=== PATIENT | male | born 1965 | race Caucasian/White ===

== ENCOUNTER 2024-01-15 00:26 | Inpatient (IN) | payer OTHER, SELFPAY ==
[2024-01-14 20:10] VITALS: BP 143/99; BMI 29.8
[2024-01-14 20:16] LABS: Glucose - Point of Care 107 mg/dl (70-99)
[2024-01-14 20:26] LABS: % Basophils 1.2 % (0-2); % Eosinophils 5.6 % (0-6); % Immature Granulocytes 0.2 % (0-0.5); % Lymphocytes 43.7 % (20.5-51.1); % Monocytes 11.7 % (1.7-9.3); % Neutrophils 37.6 % (42.2-75.2); Absolute Basophils 0.1 10^3/uL (0-0.2); Absolute Eosinophils 0.2 10^3/uL (0-0.7); Absolute Lymphocytes 1.9 10^3/uL (1.2-3.4); Absolute Monocytes 0.5 10^3/uL (0.1-0.6); Absolute Neutrophils 1.6 10^3/uL (1.4-6.5); Hematocrit 37.4 % (39.0-52.0); Hemoglobin 13.7 g/dL (13.0-18.0); Mean Corp Hgb Conc. 36.6 g/dL (33.0-37.0); Mean Corpuscular Volume 81.8 fL (80.0-94.0); Mean Platelet Volume 9.5 fL (7.4-10.4); Nucleated Red Blood Cells % 0 % (-); Platelet Count 197 10^3/uL (130-400); Red Blood Cell Count 4.57 10^6/uL (4.70-6.10); Red Cell Dist. Width 12.2 % (11.5-14.5); White Blood Cell Count 4.3 10^3/uL (4.8-10.8)
[2024-01-14] MEDS: ATIVAN 2 MG IV ×2 (20:26→20:32)
--- NOTE | 2024-01-14 20:27 | EDRN ---
Pt urinated himself and while being changed, complained of headache. Pt started with seizure activity, L gaze preference. Dr Sethi to bedside and gave vo 2mg IV ativan which was administered. Pt placed on 4 lpm O2 for pulse ox = 90% room
air.
--- NOTE | 2024-01-14 20:28 | ED.GENMED ---
History of Present Illness
General
Chief Complaint: Seizure
Time Seen by Provider: 01/14/24 20:25
Travel History
Have you had any contact with someone who has COVID-19?: No
Do you have any symptoms of coronavirus? Fever > 100 degrees, chills, cough, shortness of breath, sore throat, loss of taste or smell, muscle aches, or headache?: No
History of Present Illness
History of Present Illness:
HPI: The patient presents due to presumed seizure. He apparently had a seizure earlier in the evening witnessed by his roommate. Before I evaluated the patient, the nurse tells me that he was acting appropriately with normal mental status and did
not appear postictal. Last seizure 08/22/2023 according to roommate.
EXAM:
GENERAL: Examined 8:25 PM, the patient is seizing�left gaze preference
HEENT: Moist oral mucosa, left gaze preference
CARDIOVASCULAR: No murmurs, tachycardic heart rate and rhythm, No chest wall tenderness
PULMONARY: No respiratory distress, breath sounds are clear and equal
ABDOMEN: Soft with no peritoneal signs, no tenderness
NEUROLOGIC: Increased tone to all extremities but no significant generalized tonic-clonic activity
PSYCHIATRIC: The patient is currently nonverbal, seizing
EXTREMITIES: Nontender, no edema, moves all extremities equally
SKIN: No rash, no lesions
ED COURSE:
8:25 PM: Initially evaluated patient
NUMBER AND COMPLEXITY OF PROBLEMS ADDRESSED AT THE ENCOUNTER
� Chronic conditions affecting care: Seizure disorder, history of Korsakoff psychosis, former alcohol abuse
� Acute Exacerbation and/or Progression of Chronic Illness: This is a recurring problem
� Differential Diagnosis includes: Exacerbation of seizure
AMOUNT AND/OR COMPLEXITY OF DATA TO BE REVIEWED AND ANALYZED
� I performed an independent evaluation of and my interpretation is:
EKG:
CT: CT brain shows no acute abnormality
X-rays: Chest x-ray by my read shows no clear sign of acute abnormality
Laboratory Studies: Sodium is 126, other labs relatively unremarkable
Other:
� Review of other/old records: I reviewed records. The patient was admitted here with breakthrough seizure 09-12 through 08/26/2023 CTA imaging at that time was unremarkable. At that time his dose of clobazam was increased 1
twice daily to be 3 times daily and lacosamide was continued.
� Clinical information was obtained by an independent historian: Spoke to roommate, Socorro Tania [phone] - was 'normal' and hour before and then found him on bed, didn't respond, eyes were open, could not get up out of bed,
then started shaking on left side. Left side of face 'froze', then facial twitching. Was concerned he may vomiting.
� Prescriptions/Medications Considered but not given:
� Further testing considered but not performed:
RISK OF COMPLICATIONS AND/OR MORBIDITY OR MORTALITY OF PATIENT MANAGEMENT
� Social determinants of health affecting care: At home with a roommate
� Discussion with other providers: I discussed with Dr. Watt initially as patient did have a prolonged seizure here. She suggested considering transfer to [facility] as he was difficult to manage here in the past and may
require overnight EEG. I did speak to a resident at [facility] who is checking for transfer with their attending. I received call back from [facility] at around 10 PM: They do not feel the patient needs to be transferred to [facility] and they are
not planning for a overnight EEG. They will follow-up with him next week.
� Escalation of care including admission/observation vs risk of discharge considered:However at approximately 8:25 PM, the patient did have another seizure. He had leftward gaze preference and was not responding to stimuli there
was only subtle extremity. On reassessment at 9:30 PM, he appears postictal. On reassessment at 10:30 PM, the patient has much improved mental status. However I am very concerned about the fact that he had 2 events tonight and 1 of which was very
prolonged at about 10 minutes despite 2 rounds of benzos and he was also given Keppra. Will keep in the hospital for further monitoring.
Past History
Past History
ED Past Medical History: HTN, Seizures, Other (Alcohol intoxication with hallucinations, Dizziness, GI bleeding due to Ulcers) and Other; Negative Asthma, Hypercholesterolemia or NIDDM
ED Past Surgical History: None
Social History
Tobacco: Former smoker
Alcohol: Former ([employer] 4 during the week and 6 on the weekends None since March 2023)
Drug: None
Personal:
Living: with family
Employment: Not employed
Family History
Family History: Other (Noncontributory)
Phy Exam
Physical Exam
Physical Exam:
See HPI
Course
Orders/Labs/Results
Orders:
Orders
01/14/24 20:21
Alcohol Urgent
Complete Blood Count/With Diff Urgent
Comprehensive Metabolic Panel Urgent
01/14/24 20:25
Lorazepam [Ativan] 2 mg .ROUTE .STK-MED ONE
01/14/24 20:26
Lorazepam [Ativan] 2 mg IV NOW STA
01/14/24 20:32
Lorazepam [Ativan] 2 mg IV NOW STA
01/14/24 20:33
Lorazepam [Ativan] 2 mg IV NOW STA
01/14/24 20:35
Levetiracetam Injectable [Keppra] 1,500 mg IV NOW STA
01/14/24 20:36
CT Head W/o Iv Contrast Urgent
Comment:
Reason For Exam: recurrent severe sz activity
01/14/24 21:22
Urine Drug Abuse Screen Urgent
01/14/24 21:23
Urinalysis Reflex To Culture Urgent
CR Chest Portable - 1 View Urgent
Comment:
Reason For Exam: seizure
Reason Study Needs to be Portable: Patient Unstable
01/14/24 22:23
Add On- LAB Urgent
Tests Added?: alcohol level
Abnormal Lab Results
01/14/24 01/14/24
20:15 20:21
WBC 4.3 L 10^3/uL
(4.8-10.8)
RBC 4.57 L 10^6/uL
(4.70-6.10)
Hct 37.4 L %
(39.0-52.0)
Neutrophils % 37.6 L %
(42.2-75.2)
Monocytes % 11.7 H %
(1.7-9.3)
Sodium 126 L mmol/L
(135-145)
Chloride 91 L mmol/L
(98-107)
Glucose 103 H mg/dl
(70-99)
POC Glucose 107 H mg/dl
(70-99)
01/14/24 20:21
01/14/24 20:21
Vital Signs
Initial and Last Documented VS:
Initial Vital Signs
Temp Pulse Resp BP Pulse Ox
98.2 F 82 12 143/99 96
01/14/24 20:10 01/14/24 20:10 01/14/24 20:10 01/14/24 20:10 01/14/24 20:10
Last Documented Vital Signs
Temp Pulse Resp BP Pulse Ox
98.2 F 86 17 123/97 94
01/14/24 20:10 01/14/24 22:00 01/14/24 22:00 01/14/24 22:00 01/14/24 22:00
*Critical Care Note
Total Time (30-74mins, 75-104mins- exclusive of procedures): Not Applicable (The patient had 10 minutes of seizure activity and required several boluses of benzos and emergent administration of IV Keppra. I frequently reassessed this patient on
multiple times after his initial seizure activity.)
ED Attending Note
-
Portions of this chart may have been created with voice recognition software.� Occasional wrong word or��sound alike� substitutions may have occurred due to the inherent limitations of voice recognition software.
Discharge Plan
Departure
Patient Disposition: Admit
Date of Disposition: 01/14/24
Time of Disposition: 22:20
Presentation/result/management discussed w/ accepting MD/DO: Hospitalist
Discharge Problem:
Breakthrough seizure
Prescriptions:
No Action
amlodipine 10 MG tablet
10 mg PO DAILY
sertraline 25 mg Tablet
25 mg PO DAILY
B Complex Tablet Extended Release
1 tab PO DAILY
thiamine HCl (vitamin B1) 100 mg Tablet
100 mg PO DAILY
lacosamide 150 mg tablet
300 mg PO BID
clobazam 10 mg tablet
15 mg PO TID
valproic acid 250 mg capsule
500 mg PO BID Qty: 60 0RF
Referrals:
Caprice Mc DO [Family Provider] -
Interventions
Interventions:
*Risk Screen - Suicide Last Done: 01/14/24 20:10
*General Assessment Last Done: 01/14/24 20:10
*Neglect/Abuse Screening Last Done: 01/14/24 20:10
*ED COVID-19 Vaccine History Last Done: 01/14/24 20:10
ED- Cardiac Assessment Last Done: 01/14/24 20:38
ED- Neurological Assessment Last Done: 01/14/24 20:38
ED- Pulmonary Assessment Last Done: 01/14/24 20:58
--- NOTE | 2024-01-14 20:32 | EDRN ---
Seizure activity significantly increased, gaze to left. Pt placed on NRB mask in addition to nasal cannula.
--- NOTE | 2024-01-14 20:34 | EDRN ---
Seizure activity stopped - pt laying with eyes closed. HR 110.
[2024-01-14] MEDS: KEPPRA 1500 MG IV (20:38)
--- NOTE | 2024-01-14 20:41 | EDRN ---
Pt now talking with staff.
[2024-01-14 20:43] VITALS: BP 144/85
[2024-01-14 20:44] LABS: ALT (SGPT) 14 U/L (0-50); AST (SGOT) 26 U/L (17-59); Albumin 4.6 g/dl (3.5-5.0); Alkaline Phosphatase 57 U/L (38-126); Blood Urea Nitrogen 18 mg/dl (9-20); Calcium 9.3 mg/dl (8.4-10.2); Carbon Dioxide 28 mmol/L (22-30); Chloride 91 mmol/L (98-107); Estimated Creatinine Clearance 95 ml/min; Glucose 103 mg/dl (70-99); Potassium 4.1 mmol/L (3.5-5.1); Sodium 126 mmol/L (135-145); Total Bilirubin 0.6 mg/dl (0.2-1.3); eGFR > 60.00
[2024-01-14 21:00] VITALS: BP 118/81
[2024-01-14 22:00] VITALS: BP 123/97
[2024-01-14 23:00] VITALS: BP 114/85
[2024-01-15] VITALS (18 sets, daily range): BP systolic 95–133; BP diastolic 70–88; PULSE 74–75; BMI 29.7
--- NOTE | 2024-01-15 00:14 | HPS.HSE ---
Family Physician
-
Family Physician: Caprice Mc,
Chief Complaint
-
Seizure
History of Present Illness
Patient is a 58y M with PMH significant for seizure disorder, alcohol use disorder and Korsakoff psychosis who presents to ED for evaluation of seizure activity. History obtained from patient (minimally) and from ED staff. Patient was
reportedly noted to have some 'twitching' of the facial muscles and was not responding appropriately at home. His roommate called EMS who brought patient to the ED for evaluation. Here in the ED, patient was noted to have seziure x 2 with
increased tone, L gaze preference and unresponsiveness. He was given IV Ativan x 2 with each episode with improvement in his symptoms. He received a loading dose of IV Keppra after his second witnessed seizure here.
Patient was noted to have transient hypoxemia / desaturation - and it is noted that he had similar episodes with prior seizures.
At the time of my examination, patient is sleeping comfortably. He does awaken to verbal and noxious stimuli. He knows that he is in [facility] and states that he is here for 'seizure'. He is unable to provide any additional history at
this time.
Medical History
Past Medical History
Past Medical History: Reports Other
Additional Past Medical History:
Alcohol Use Disorder
Wernicke-Korsakoff Syndrome
Seizure Disorder
SDH
Hypertension
GERD / PUD
Thoracic Aortic Aneurysm
Past Surgical History: Reports None and Other
Social History
Alcohol: Former (Patient states that he has not had any alcohol since March 2023.)
Family History
Family History: Unable to Obtain
Allergies / Home Medications
Allergies reflects when Allergies were last updated in [facility].
Home Medications with original date entered in [facility]
Allergy/Medication List:
Unable to obtain current med list.
Most recent AEDs are from ED visit here 09/2023 and include clobazam, lacosamide and VPA (which was newly added).
If medication reconciliation has not been performed, why?: Medication List N/A (Patient states that he does not known what meds he takes.)
Review of Systems
-
History Source: Patient (Limited ROS due to mental status / lethargy.)
A 12 point ROS was completed and negative except as noted: Yes
Constitutional: Denies Fever
Respiratory: Denies Cough
Cardiac: Denies Chest Pain
Abdomen/GI: Denies Nausea or Vomiting
Neurological: Reports Headache and Other (Seizure); Denies Dizzy
Psych: Denies Depression or Anxiety
Physical Exam
Vital Signs
Vital Signs
Temp Pulse Resp BP Pulse Ox
98.2 F 74 14 114/85 96
01/14/24 20:10 01/14/24 23:00 01/14/24 23:00 01/14/24 23:00 01/14/24 23:00
Physical Exam
General: Other (58y M currenntly resting comfortably in no distress.)
HEENT: Moist mucous membranes and PERRLA
Respiratory: Clear; No Wheezes, Rales or Rhonchi
Cardiac: S1/S2 and Regular Rhythm; No Murmur
GI: Soft, Non Tender, Non Distended and Normal Bowel Sounds
Musculoskeletal: No Clubbing, No Cyanosis and No Edema
Neuro: Other (Responds ro verbal and noxious stim. Answers questions and follows commands. Moves LUE appropriately. RUE appears relatively weak in comparison.)
Laboratory Results
-
01/14/24 20:21
Laboratory Results
Total Bilirubin 0.6 mg/dl (0.2-1.3) 01/14/24 20:21
AST 26 U/L (17-59) 01/14/24 20:21
ALT 14 U/L (0-50) 01/14/24 20:21
Alkaline Phosphatase 57 U/L (38-126) 01/14/24 20:21
Impression/Plan
-
A/P: Patient is a 58y M with PMH significant for EtOH use disorder, seizure disorder and Wernicke-Korsakoff syndrome who presents to ED with seizure activity.
Seizure Disorder
Chronic Alcohol Use Disorder
Wernicke-Korsakoff Syndrome
- Admit for further evaluation and treatment.
- Currently appears stable s/p Ativan x 2 doses and IV Keppra load.
- Continue current AEDs (clobazam, lacosamide and VPA).
- Add Keppra 500mg BID for now.
- Monitor for any recurrent seizure activity.
- Check VPA levels.
- Neurology evaluation for additional recommendations.
- Continue thiamine supplementation.
- Patient states that last drink was March 2023.
- Withdrawal seems unlikely, but will follow MSAS in the event that patient history is unreliable.
- PT / OT / Speech evaluations.
Hyponatremia
- Na level = 126 which is moderately low compared to baseline in the low 130s.
- Given active seizures, would favor treatment to keep Na at least > 130.
- Will repeat Na now. If still low, will give slow rate of 3% saline overnight to correct.
- Check urine studies, TFTs, etc.
- Consider Nephrology evaluation if hyponatremia worsens / persists.
DVT Prophylaxis: SCDs
Code Status: Full
--- NOTE | 2024-01-15 00:47 | EDRN ---
Attempted to call report to ICU (pt is IMU admit)
[2024-01-15 00:51] LABS: Blood Urea Nitrogen 19 mg/dl (9-20); Calcium 9.1 mg/dl (8.4-10.2); Carbon Dioxide 29 mmol/L (22-30); Chloride 91 mmol/L (98-107); Estimated Creatinine Clearance 106 ml/min; Glucose 109 mg/dl (70-99); Potassium 4.6 mmol/L (3.5-5.1); Sodium 127 mmol/L (135-145); eGFR > 60.00
--- NOTE | 2024-01-15 00:57 | EDRN ---
Report given to Kassandra in ICU
--- NOTE | 2024-01-15 01:30 | PTCARENOTE ---
Patient received from ED, drowsy but arousable, oriented x3, able to follow commands. Pupils 5 mm equal and reactive. NSR on monitor, afebrile, blood pressure as documented. palpable pulses throughout, no edema noted. Lungs clear, pulse ox 96% on
2L. Abdomen soft with positive bowel sounds. Incontinent of a large amount of urine, # 30 condom cath applied. #20 g in LAC , #20 g in right wrist, flushed and patent. CHG bath given
[2024-01-15 04:24] LABS: Hematocrit 36.5 % (39.0-52.0); Hemoglobin 13.3 g/dL (13.0-18.0); Mean Corp Hgb Conc. 36.4 g/dL (33.0-37.0); Mean Corpuscular Hgb 29.7 pg (27.0-31.0); Mean Corpuscular Volume 81.5 fL (80.0-94.0); Mean Platelet Volume 9.6 fL (7.4-10.4); Platelet Count 200 10^3/uL (130-400); Red Blood Cell Count 4.48 10^6/uL (4.70-6.10); Red Cell Dist. Width 12.1 % (11.5-14.5); White Blood Cell Count 6.9 10^3/uL (4.8-10.8)
--- NOTE | 2024-01-15 04:34 | PTCARENOTE ---
Patient reassessed, remains oriented x3, pupils now 3mm and equal. No other changes in assessment, labs sent
[2024-01-15 04:41] LABS: Blood Urea Nitrogen 14 mg/dl (9-20); Carbon Dioxide 27 mmol/L (22-30); Chloride 95 mmol/L (98-107); Creatine Phosphokinase 57 U/L (55-170); Estimated Creatinine Clearance 106 ml/min; Glucose 102 mg/dl (70-99); Magnesium 1.8 mg/dl (1.6-2.3); Potassium 4.2 mmol/L (3.5-5.1); Sodium 128 mmol/L (135-145); eGFR > 60.00
[2024-01-15 04:46] LABS: Depakane 42.9 ug/ml (50.0-120.0)
[2024-01-15 05:46] LABS: TSH Reflex To Free T4 0.91 uIU/ml (0.47-4.68)
[2024-01-15] MEDS: DEPAKENE 500 MG PO ×2 (08:28→20:05)
[2024-01-15] MEDS: VIMPAT 300 MG PO ×2 (08:28→20:05)
[2024-01-15] MEDS: VITAMIN B1 100 MG PO (08:28)
[2024-01-15] MEDS: B COMPLEX w/VITAMIN C 1 CAPLET PO (08:28)
[2024-01-15] MEDS: ONFI 15 MG PO ×3 (08:29→22:28)
[2024-01-15] MEDS: FOLVITE 1 MG PO (08:29)
[2024-01-15] MEDS: KEPPRA 500 MG IV ×2 (08:30→20:05)
--- NOTE | 2024-01-15 08:42 | W.PN.HOSP.TC ---
Today's Communication/Plan
-
diet with fluid restriction for now, F/U urine studies
F/U further neurology recs on AED
PT/OT/ST
Assessment / Plan
Assessment / Plan
A/P:� Patient is a 58y M with PMH significant for EtOH use disorder, seizure disorder and Wernicke-Korsakoff syndrome who presents to ED with seizure activity.
Seizure Disorder
Chronic Alcohol Use Disorder
Wernicke-Korsakoff Syndrome
- s/p Ativan x 2 doses and IV Keppra load in ER given persistent seizure activity
- patient states his roommate gives him his medications and he hasn't missed any doses
�- Continue current AEDs (clobazam, lacosamide and VPA).
�- Keppra 500mg BID initiated
�- Check VPA levels.
�- Neurology consult
�- Continue thiamine
�- Patient states that last drink was March 2023.
�- Withdrawal seems unlikely, but will follow MSAS in the event that patient history is unreliable.
�- PT / OT / Speech evaluations - OK to order diet this AM, patient awake and alert
Hyponatremia
�- Na level = 126, baseline in the low 130s. improved to 128
�- F/U urine studies
- order diet with fluid restriction for now
-hold INVESTMENT ANALYST SSRI for now
DVT Prophylaxis:� SCDs
Code Status:� Full
Anticipated Discharge: 24 - 48 hours
Subjective/Interval History
-
Date of Service: January 15, 2024
feeling better this morning
awake, alert
Objective Data
-
Labs:
Laboratory Results
01/14/24 01/15/24 01/15/24
20:21 00:31 04:17
WBC 6.9
Hgb 13.3
Hct 36.5 L
Plt Count 200
Sodium 126 L 127 L 128 L
Potassium 4.1 4.6 4.2
Chloride 91 L 91 L 95 L
Carbon Dioxide 28 29 27
BUN 18 19 14
Creatinine 0.9 0.8 0.8
Glucose 103 H 109 H 102 H
Calcium 9.3 9.1 9.0
Total Bilirubin 0.6
AST 26
ALT 14
Alkaline Phosphatase 57
Vital Signs:
Vital Signs
Temp Pulse Resp BP Pulse Ox
98.1 F 67 13 108/79 97
01/15/24 07:55 01/15/24 04:00 01/15/24 04:00 01/15/24 04:00 01/15/24 04:00
Review of Systems
-
History Source: Patient
All other systems: Reviewed and negative
Physical Exam
-
General: No Apparent Distress
HEENT: PERRLA
Respiratory: Clear to Auscultation; Negative Wheezes
Cardiac: Regular Rhythm and S1/S2
GI: Soft and Nontender
Musculoskeletal: No Edema
Skin: Warm and Dry; Negative Rash
Neuro: Awake and Alert
Psych: Negative Intact Judgement/Insight
Data Reviewed
-
Diagnostic Radiology: Report Reviewed by me
Labs: Labs Reviewed by me
--- NOTE | 2024-01-15 08:53 | PTCARENOTE ---
0700 patient received in bed. AAO x3 Repeatedly asking the same questions. Able to let his needs know. Denies pain. BP via RT upper arm: 126/78 <A{ 94. SB 59; RR 14; 99/2L via nasal canula. No edema. Seizure free at this time. All meds administered
per current order. Diet changed to Regular with 48 OZ Fluid Restriction. Condom catheter in place draining clear yellow urine. Neuro checks WNL call campbell with reach
--- NOTE | 2024-01-15 09:44 | PTOTSP ---
ST Evaluation
Oropharyngeal function appears intact at the bedside.
Pt received awake/alert at the bedside. Speech is fluent/intelligible verbal output is tangential/irrelevant but redirectable. HOB raised for PO trials of puree, regular solids and thin liquids. Demo functional mastication and bolus was orally
cleared. Thin liquids by straw sip swallow appears prompt. No overt s/sx of aspiration observed.
Recommend
1. Regular Solids / Thin liquids
2. Standard aspiration precautions and meal set up assist as needed
3. Meds oral per pt preference and RN discretion
4. No further acute SHOE SALESPERSON needs. SHOE SALESPERSON signing off please reconsult as needed.
--- NOTE | 2024-01-15 11:15 | CON.NEURO4 ---
Consultation - Neurology 4
-
CONSULTING PHYSICIAN: Shukri
REFERRING PHYSICIAN: ED
DICTATED BY: Shukri
DATE/TIME OF REQUEST: 01/14/24 in late evening
DATE/TIME OF CONSULTATION: 01/15/24 at 1030
Reason for Consultation: status
History of Present Illness:
58-year-old male with a complex past medical history of seizure, alcohol use disorder, and Warnicke's�Korsakoff syndrome who follows with the [facility] brought in yesterday evening for seizure activity. The patient is not a reliable
historian. He was having some 'twitching in his face' and was not responding appropriately at home. His roommate called EMS and came to the ED. He was noted to have 2 seizures in the ED consisting of 'increased tone, left gaze preference and
unresponsiveness.' The second one lasted 10 minutes in duration. He was given Ativan 2mg IV x4 as well as a loading dose of Keppra 1500mg IV after the second witnessed seizure. He had transient hypoxemia/desaturation and required a
nonrebreather. Sodium level was initially 126 and moderately low compared to his baseline in the low 130s 20s previously been here. Keppra 500 mg twice daily was added to his regimen. He has not had any further seizure activity and has returned
to his baseline mental status. Juan discussed the case with the ER and provided some guidance. They stated that they will coordinate a follow-up appointment in their clinic tomorrow with him.
CXR:
1. � Mild to moderate cardiomegaly without evidence for acute pulmonary edema.
2. � Mild to moderate elevation of the right hemidiaphragm.
3. � Small amount of subsegmental atelectasis in the lingula.
UA neg
Afebrile throughout course.
Past Medical History: � Former alcohol abuse, seizure disorder, alcoholic hepatitis, Wernicke-Korsakoff syndrome, SDH (2019), HTN, PUD, GI bleed, thoracic aortic aneurysm without rupture, meningioma
Surgical History:� Denies
Family History:� Reviewed and noncontributory.
Social History: Former alcohol abuse. Former smoker. Denies illicit drug use.
Allergies:� No known allergies.
Allergies
No Known Allergies Allergy (Verified 01/14/24 20:15)
Home Medications Table - record
Medication Instructions Recorded Confirmed
amlodipine 10 mg tablet 10 mg PO DAILY Blood pressure 05/29/20 01/14/24
sertraline 25 mg tablet 25 mg PO DAILY Depression 08/22/23 01/14/24
clobazam 10 mg tablet 15 mg PO TID Seizures 10/04/23 01/14/24
lacosamide 150 mg tablet 300 mg PO BID Seizures 10/04/23 01/14/24
thiamine HCl (vitamin B1) 100 mg 100 mg PO DAILY Supplement 10/04/23 01/14/24
tablet
valproic acid 250 mg capsule 500 mg PO BID #60 caps 10/04/23 01/14/24
vitamin B complex 1 tab PO DAILY Supplement 10/04/23 01/14/24
Review of Symptoms:
Patient denies any fever, headache, chest pain, shortness of breath, GI or symptoms.
�Per the HPI.�All systems are reviewed negative except above.
Vital Signs
Temp Pulse Resp BP Pulse Ox
98.1 F 65 18 126/78 96
01/15/24 07:55 01/15/24 09:00 01/15/24 09:00 01/15/24 08:00 01/15/24 09:00
Lab Results
01/15/24 04:17
Sodium 128 mmol/L (135-145) L 01/15/24 04:17
Potassium 4.2 mmol/L (3.5-5.1) 01/15/24 04:17
BUN 14 mg/dl (9-20) 01/15/24 04:17
Glucose 102 mg/dl (70-99) H 01/15/24 04:17
Calcium 9.0 mg/dl (8.4-10.2) 01/15/24 04:17
VPA level 42
ETOH level none detected
Na level was 126, now 128; 132 last admissionin September
Physical Exam:
The patient is afebrile, heart sounds S1 and S2 are regular, and chest is clear to auscultation bilaterally.
Neurologic Examination:
The patient is awake, alert and oriented x 3; poor insight; answered the location when asked the date and said 'you didn't ask me that' but then answered correctly; appears disinhibited; appears to be at his baseline (has a h/o Korsakoff's). He is
able to follow commands and answer questions appropriately. There is no clear aphasia or dysarthria. On cranial nerve assessment, pupils are 3 mm bilateral, round and reactive to light and accommodation. Visual morales are full. Extraocular movements
are intact. Facial sensations are intact and bilaterally symmetrical, there is no facial asymmetry. Hearing is intact bilaterally to normal conversation volume. Tongue palate and uvula are midline. Sternocleidomastoid strengths are full
bilaterally. Motor strengths are 5/5 bilateral upper and lower extremities on medical research Pl[employer] scale. There is no drift or involuntary movement noted. Deep tendon reflexes are 2+ bilateral upper and lower extremities and Babinski is absent
bilaterally. Sensations of temperature and vibration are intact and bilaterally symmetrical. Coordination is intact by finger to nose bilaterally.
Neuro Imaging:
HCT 01/14/24
1. � Moderate to severe distention of the lateral ventricles and third ventricle which has mildly increased since 10/04/2023 and markedly increased since 04/08/2019. No CT evidence for distention of the fourth ventricle. Diagnostic possibilities are
(1) chronic obstructive hydrocephalus secondary to cerebral aqueduct stenosis or (2) ex vacuo dilatation of the ventricular system secondary to moderate temporal and frontal lobe volume loss.
2. � Mild periventricular white matter leukoaraiosis in the frontal and parietal lobes.
3. � Severe chronic right maxillary sinusitis.
Impression:
ORION GELLER is a 58 year old M with history of chronic ETOH use disorder, Wernicke-Korsakoff syndrome and seizure who follows with [facility] who has presented to the hospital with breakthrough seizures with status epilepticus;
given Ativan x2 and Keppra IV load in ED given persistent seizure activity. He has returned to his baseline. Denies any missed meds but is not a reliable historian. Has some hyponatremia. Unclear what workup has been done for ??chronic
obstructive hydrocephalus secondary to cerebral aqueduct stenosis or (2) ex vacuo dilatation of the ventricular system secondary to moderate temporal and frontal lobe volume loss on radiology's read of last night's HCT. Read as ?NPH in the past.
Recommendations:
1. now returned to baseline--stable for discharge from a neurological standpoint; no role for EEG
2. ED discussed with Juan yesterday evening, they are aware of his presentation and will contact him to coordinate an outpatient evaluation with them tomorrow.
3. switch addition of Keppra to PO and d/c on this; Juan can decide if he needs this ch[facility]. They would know more about his HCT findings/if he has had/needs neurosurgical evaluation for this. D/c on home meds clobazam, lacosamide, VPA;
VPA level mildly low here at 42
4. neurochecks, seizure precautions
5. continue thiamine, MSAS protocol; reports that he has been sober since March 2023
6. hyponatremia management per primary team.
Critical care time 70 mins
Discussed patient care with: patient, ER, ICU, Dr. Merchant
[2024-01-15 15:40] LABS: Sodium 130 mmol/L (135-145)
--- NOTE | 2024-01-15 16:09 | SUR.OPER ---
patient OOB chair. ambulates in a room with supervision . chair alarm activated for safety. Urine sample send result pending. Sodium 130 improved from am results (128). patient AAO x3 forgetful. call campbell within reach
[2024-01-15 16:24] LABS: Urine Albumin Negative (Neg - Trace); Urine Bilirubin Negative (Negative); Urine Character Slightly Cloudy (Clear); Urine Color Yellow; Urine Glucose Negative (Negative); Urine Ketone Negative (Negative); Urine Leukocyte Negative (Negative); Urine Nitrite Negative (Negative); Urine Occult Blood Negative (Negative); Urine Urobilinogen Negative (Neg - 1+)
--- NOTE | 2024-01-15 18:15 | PTCARENOTE ---
3% sodium chloride order written on a wrong patient . order cancelled pharmacy notified
--- NOTE | 2024-01-15 18:30 | PTCARENOTE ---
patient transfer to room 3345. Urine for UA urine osmolarity, and sodium send unable to complete order lab made aware
--- NOTE | 2024-01-15 18:44 | PTCARENOTE ---
Pt transferred to 3345. Vital Signs captured from previous shift.
[2024-01-15 18:47] LABS: Amphetamines Negative (Negative); Barbiturates Negative (Negative); Benzodiazepines Positive (Negative); Buprenorphine Negative (Negative); Cocaine Negative (Negative); Marijuana Negative (Negative); Methadone Negative (Negative); Methamphetamines Negative (Negative); Opiates Negative (Negative); Phencyclidine Negative (Negative); Tricyclic Antidepressants Negative (Negative)
[2024-01-15 18:52] LABS: Urine Sodium 66 mmol/L (30-90)
--- NOTE | 2024-01-15 19:00 | PTCARENOTE ---
report received from dayshift RN. walking rounds completed. pt sleeping, arouses easily to voice. orientedx3. somewhat forgetful to time. SR/SB on telemetry heart rate 50-60s. pulses palpable. no edema. pt on room air, sat 94%. lung sounds
diminished in bases. active bowel sounds. condom catheter in place, voiding clear yellow urine. see worklist for full nursing assessment. pt updated on plan of care.
[2024-01-15 19:02] LABS: Fentanyl, Urine Negative (Negative)
[2024-01-15 20:52] LABS: Osmolality Urine 416 mOsm/kg (300-900)
[2024-01-16] VITALS (8 sets, daily range): BP systolic 95–113; BP diastolic 69–83; PULSE 62; O2SAT 95; BMI 28.9
[2024-01-16 03:46] LABS: Blood Urea Nitrogen 18 mg/dl (9-20); Calcium 9.4 mg/dl (8.4-10.2); Carbon Dioxide 27 mmol/L (22-30); Chloride 99 mmol/L (98-107); Estimated Creatinine Clearance 95 ml/min; Glucose 94 mg/dl (70-99); Potassium 4.2 mmol/L (3.5-5.1); Sodium 131 mmol/L (135-145); eGFR > 60.00
[2024-01-16] MEDS: KEPPRA 500 MG PO (08:21)
[2024-01-16] MEDS: FOLVITE 1 MG PO (08:22)
[2024-01-16] MEDS: DEPAKENE 500 MG PO (08:22)
[2024-01-16] MEDS: B COMPLEX w/VITAMIN C 1 CAPLET PO (08:22)
[2024-01-16] MEDS: ONFI 15 MG PO (08:22)
[2024-01-16] MEDS: VITAMIN B1 100 MG PO (08:22)
[2024-01-16] MEDS: VIMPAT 300 MG PO (08:22)
--- NOTE | 2024-01-16 09:13 | W.PN.HOSP.TC ---
Today's Communication/Plan
-
Continue current management. Discharge planning
Assessment / Plan
Assessment / Plan
Physical exam:
General: Well Developed, Well Nourished and No Apparent Distress
HEENT: Normocephalic, Atraumatic and Moist Mucous Membranes
Respiratory: Clear to Auscultation; Negative Wheezes, Rales or Rhonchi
Cardiac: Regular Rhythm and S1/S2
GI: Soft, Nontender and Nondistended
Musculoskeletal: No Clubbing, No Cyanosis and No Edema
Neuro: Awake, Alert and Oriented
Psych: Calm
A/P:
Seizure Disorder
Chronic Alcohol Use Disorder
Wernicke-Korsakoff Syndrome
- s/p Ativan x 2 doses and IV Keppra load in ER given persistent seizure activity
- patient states his roommate gives him his medications and he hasn't missed any doses
�- Continue current AEDs (clobazam, lacosamide and VPA).
�- Keppra 500mg BID initiated
�- Check VPA levels and relatively low but no critical
�- Neurology consult--> appreciate neurology input and recommended continue current antiseizure medications including the new one, Keppra and cleared for discharge since last evening. Driving restrictions until cleared by neurology.
�- Continue thiamine
�- Patient states that last drink was March 2023.
�- Withdrawal seems unlikely, but will follow [facility] in the event that patient history is unreliable. So far no need for benzodiazepines for alcohol withdrawal.
�- PT / OT / Speech evaluations - OK to order diet
Hyponatremia
�- Na level = 126, baseline in the low 130s. improved to 128. Today sodium 131--> continue fluid restriction as outpatient and follow-up sodium as outpatient as well.
�- F/U urine studies
- order diet with fluid restriction for now
-resume OUTRE[employer]ESSION[employer] SSRI upon discharge
DVT Prophylaxis:� SCDs
Code Status:� Full
Anticipated Discharge: Today
Subjective/Interval History
-
Date of Service: January 16, 2024
Patient alert and back to his baseline. No further seizures
Objective Data
-
Labs:
Laboratory Results
01/16/24
03:19
Sodium 131 L
Potassium 4.2
Chloride 99
Carbon Dioxide 27
BUN 18
Creatinine 0.8
Glucose 94
Calcium 9.4
Vital Signs:
Vital Signs
Temp Pulse Resp BP Pulse Ox
97.7 F 58 16 95/75 91
01/16/24 07:56 01/16/24 04:00 01/16/24 04:00 01/16/24 04:00 01/16/24 04:00
I&O
01/15/24 01/16/24 01/17/24
06:59 06:59 06:59
Intake Total 480 / 480
Balance 480 / 480
Review of Systems
-
All other systems: Reviewed and negative
--- NOTE | 2024-01-16 09:48 | PTCARENOTE ---
pt aaox3. states no pain or sob. room air. sinus hanh seen on monitor. pt states he does not feel anxious
--- NOTE | 2024-01-16 13:22 | W.DCSUMMARY ---
Discharge Summary
Discharge Data
Date of Admission: 01/15/24
Date of Discharge: 01/16/24
-
Pending Results: No
Hospital Course
Patient is 58 years old male with history of alcohol use disorder in the past, seizure disorder, alcoholic hepatitis, Warnicke Korsakoff syndrome, SDH in 2019, hypertension, dyslipidemia, GI bleed with peptic ulcer disease, thoracic aortic aneurysm,
meningioma, presented to the hospital after having seizure episodes. He was witnessed to have seizures x 2 in the ED and he was given Ativan and loading dose of Keppra. Patient was hospitalized and neurology consulted. CT of the head abnormal
findings with moderate to severe distention of the lateral ventricles and lateral ventricles chronic sinusitis, and mild paraventricular white matter leukoaraiosis in frontal and parietal lobes. Neurology recommended to continue with his current
antiseizure medications and continue with the newly added Keppra. His valproic acid was 42.9 and neurology recommended continue current home doses. Patient has not had any further seizures while inpatient. Patient was was placed on alcohol
withdrawal protocol but he has not required any benzodiazepines for that matter. Neurology cleared him for discharge. Patient will be discharged in stable condition today.
Discharge duration: 35 minutes
Discharge Plan
-
Patient Disposition: Home with Home Care
Discharge Diagnosis/Procedures: Seizure. Hyponatremia. Alcohol use disorder.
Diet: Low Cholesterol and Restrict fluids to 48 oz
Activity: As tolerated
Driving Restrictions: No driving
Blood Work: Please PCP to order CBC, CMP within 1 week.
Referrals:
Caprice Mc DO [Family Provider] - in less than 1 week
Laina Watt DO [Active] - in two to four weeks
Prescriptions:
New
levetiracetam [Keppra] 500 mg tablet
500 mg PO BID 30 Days Qty: 60 0RF
Continued
amlodipine 10 MG tablet
10 mg PO DAILY
vitamin B complex Tablet Extended Release
1 tab PO DAILY
thiamine HCl (vitamin B1) 100 mg Tablet
100 mg PO DAILY
lacosamide 150 mg tablet
300 mg PO BID
clobazam 10 mg tablet
15 mg PO TID
valproic acid 250 mg capsule
500 mg PO BID Qty: 60 0RF
sertraline 100 mg Tablet
100 mg PO DAILY
Rx Instructions:
dose increase on 12/13/23
Discharge Orders:
Discharge Patient (As Directed); Ordered 01/16/24
Ordered By: Raul Butler
Discharge Date and Time
Discharge Date/Time: 01/16/24 17:30
--- NOTE | 2024-01-16 14:34 | CM ---
Addendum entered by Yoselin Quiroz RN 01/16/24 15:02:
Additionally patient has been independent in ADLs and ambulation at home using his SPC.
Original Note:
Patient with Seizure Disorder, Chronic Alcohol Use Disorder, Wernicke-Korsakoff Syndrome. Room air. PT 01/15 recommends home PT vs SNF. OT 01/15 recommends Outpatient Therapy.
Met with patient and spoke with his caregiver/roommate Socorro by phone;
patient alert/oriented however seems forgetful and responses are vague.
the patient resides with his roommate Socorro in a 3 story home with three steps to enter.
Socorro is his 24 hr private caregiver who assists him with meals and drives him to medical appointments.
Socorro works as an [employer] transfer driver however says he is there with the patient most of the time.
DME - RW, S[facility]
VN - prior VN
SNF - [facility]
[place] - [place]
PCP- Caprice Mc
Pharmacy -[facility]
The patient has a Gear Grinder through Medicaid - patient and [employer] do not know the name/contact info.
The patient had free meals delivered by an organization called [employer] (ph [phone]) which stopped a few weeks ago. [facility] has been trying unsuccessfully to contact them to reinstate the meals. Patient thinks he may need to resubmit paperwork
including his tax return to re-qualify.
Offered VN and patient would like VN again.
Referral to [facility]. She will ask their SW to follow up about the [employer] meal program.
[facility] will provide transport home today.
Plan home today with [facility] with caregiver.
--- NOTE | 2024-01-16 16:03 | VNURNOTE ---
Home Health Liaison met with patient at 1515 to discuss [facility] nurse/therapy, visits, schedule and homebound status. Patient is agreeable and understands that visits at home will be 2-3 x per week to assess and teach medical management.
[facility] brochure provided with contact information. Patient is aware that [facility] will contact him for start of care in 1-2 days after discharge from .
[facility] referral completed in [facility].
== END 2024-01-16 17:30 | disposition home health service (06) | DRG 101 ==
LOC: IMU 00:26
PROVIDERS: Student in an Organized Health Care Education/Training Program; ADMITTING PHYSICIAN Hospitalist; ATTENDING PHYSICIAN Hospitalist; CONSULT PHYSICIAN Psychiatry & Neurology Neurology; EMERGENCY PHYSICIAN Emergency Medicine; FAMILY PHYSICIAN Family Medicine
DX: G40.901 Epilepsy, unspecified, not intractable, with status epilepticus (principal); E87.1 Hypo-osmolality and hyponatremia; E11.9 Type 2 diabetes mellitus without complications; E78.00 Pure hypercholesterolemia, unspecified; I10 Essential (primary) hypertension; F10.96 Alcohol use, unspecified with alcohol-induced persisting amnestic disorder; R09.02 Hypoxemia; K21.9 Gastro-esophageal reflux disease without esophagitis; I71.20 Thoracic aortic aneurysm, without rupture, unspecified; R25.3 Fasciculation; J32.9 Chronic sinusitis, unspecified; Z87.11 Personal history of peptic ulcer disease; Z87.891 Personal history of nicotine dependence; Z86.011 Personal history of benign neoplasm of the brain
CPT/HCPCS: 70450; 71045; 80048; 80053; 80164; 80306; 80307; 81003; 82077; 82550; 82962; 83735; 83935; 84295; 84300; 84443; 85025; 85027; 92610; 96374; 96375; 97116; 97163; 97166; 99285

== ENCOUNTER 2024-04-20 01:59 | Emergency (ER) | payer OTHER, SELFPAY ==
[2024-04-20] VITALS (21 sets, daily range): BP systolic 113–147; BP diastolic 76–93; BMI 29.3
--- NOTE | 2024-04-20 02:11 | ED.GENMED ---
History of Present Illness
<Luis Miguel Vazquez DO - Last Filed: 04/21/24 22:00>
General
Chief Complaint: Seizure
Source: patient and ambulance crew
Time Seen by Provider: 04/20/24 02:13
Nursing documentation reviewed up to this point in time: agreed with
History of Present Illness
History of Present Illness:
Pleasant 58-year-old male presents with seizure. EMS states that patient ran out of his lacosamide. Patient takes Keppra, clonazepam, valproic acid, for his seizures. He lives with a roommate who called 911. Pt has a history of seizure disorder,
Korsokoff psychosis.
Past History
<Luis Miguel Vazquez DO - Last Filed: 04/21/24 22:00>
Past History
ED Past Medical History: HTN, Seizures, Other (Alcohol intoxication with hallucinations, Dizziness, GI bleeding due to Ulcers) and Other; Negative Asthma, Hypercholesterolemia or NIDDM
ED Past Surgical History: None
Social History
Tobacco: Former smoker
Alcohol: Former ([employer] 4 during the week and 6 on the weekends None since March 2023)
Drug: None
Personal:
Living: with family
Employment: Not employed
Family History
Family History: Other (Noncontributory)
Review of Systems
<Luis Miguel Vazquez DO - Last Filed: 04/21/24 22:00>
Review of Systems
Allergies reviewed?: Yes
All Other Systems: ROS reviewed and negative except as documented in HPI and ROS
Neurological: Reports other (Seizure)
Psychiatric: Reports anxiety
Phy Exam
<DO Donato Evangelista Last Filed: 04/21/24 22:00>
General Physical Exam
General Presentation: moderate distress
General age: appears stated age
General Skin: warm and dry
General Habitus: normal
Eye Exam
Eye Exam: other (Leftward gaze)
Cardiovascular Exam
Cardiovascular Exam: regular rate/rhythm and no edema
Musculoskeletal Exam
Musculoskeletal Exam: full ROM
Psychiatric Exam
Psychiatric Exam: anxious, labile and other (minimally verbal, able to answer select questions)
Course
<Luis Miguel Vazquez, DO - Last Filed: 04/21/24 22:00>
Orders/Labs/Results
Orders:
Orders
04/20/24 02:03
Electrocardiogram (*1) Stat
Reason for Study: Other
Other Reason for Exam: neuro symptoms
Bedside Glucose- Treatment ONCE
Cardiac Monitoring- Treatment ONCE
EKG- Treatment ONCE
04/20/24 02:05
diazePAM [Valium Injection] 2 mg IV NOW STA
04/20/24 02:10
CT Head W/o Iv Contrast Urgent
Comment:
Reason For Exam: seizure, left sided gaze
04/20/24 03:06
Complete Blood Count/With Diff Urgent
Comprehensive Metabolic Panel Urgent
Erythrocyte Sed Rate Urgent
PTT Urgent
Prothrombin Time Urgent
Troponin I Urgent
04/20/24 05:21
EEG Routine Urgent
Reason for Exam: seizure
04/20/24 05:25
Divalproex Delayed Rel. 12 Hr [Depakote (12 Hr Release)] 250 mg PO NOW STA
Lacosamide [Vimpat] 100 mg IV NOW STA
Levetiracetam Injectable [Keppra] 500 mg IV NOW STA
04/20/24 05:27
Consult Neurology [NEUROLOGY CONSULT] Urgent
Consulting Provider: Torito Kate
Was physician already notified: Yes
04/20/24 07:51
Add On- LAB Urgent
Tests Added?: Valproic acid
04/20/24 10:41
Valproic Acid [Depakene] 1,000 mg PO ONCE ONE
04/20/24 10:42
Levetiracetam [Keppra] 500 mg PO NOW STA
04/20/24 11:21
Lacosamide [Vimpat] 100 mg PO NOW STA
04/20/24 11:23
Lacosamide [Vimpat] 200 mg PO NOW STA
04/20/24 12:46
Valproic Acid Level [Depakane] Urgent
Abnormal Lab Results
04/20/24 04/20/24
03:06 03:30
Absolute Lymphs (auto) 0.9 L 10^3/uL
(1.2-3.4)
Absolute Monos (auto) 0.7 H 10^3/uL
(0.1-0.6)
Lymphocytes % 16.7 L %
(20.5-51.1)
Monocytes % 12.1 H %
(1.7-9.3)
Sodium 133 L mmol/L
(135-145)
Chloride 93 L mmol/L
(98-107)
Carbon Dioxide 32 H mmol/L
(22-30)
Glucose 102 H mg/dl
(70-99)
POC Glucose 103 H mg/dl
(70-99)
04/20/24 03:06
04/20/24 03:06
Vital Signs
Initial and Last Documented VS:
Initial Vital Signs
Temp Pulse Resp BP Pulse Ox
97.8 F 96 18 133/86 96
04/20/24 02:03 04/20/24 02:03 04/20/24 02:03 04/20/24 02:03 04/20/24 02:03
Last Documented Vital Signs
Temp Pulse Resp BP Pulse Ox
97.8 F 61 14 147/84 93
04/20/24 02:03 04/20/24 12:39 04/20/24 12:39 04/20/24 12:39 04/20/24 03:29
<Michael Wu, DO - Last Filed: 04/20/24 10:49>
Orders/Labs/Results
Orders:
Orders
04/20/24 02:03
Electrocardiogram (*1) Stat
Reason for Study: Other
Other Reason for Exam: neuro symptoms
Bedside Glucose- Treatment ONCE
Cardiac Monitoring- Treatment ONCE
EKG- Treatment ONCE
04/20/24 02:05
diazePAM [Valium Injection] 2 mg IV NOW STA
04/20/24 02:10
CT Head W/o Iv Contrast Urgent
Comment:
Reason For Exam: seizure, left sided gaze
04/20/24 03:06
Complete Blood Count/With Diff Urgent
Comprehensive Metabolic Panel Urgent
Erythrocyte Sed Rate Urgent
PTT Urgent
Prothrombin Time Urgent
Troponin I Urgent
04/20/24 05:21
EEG Routine Urgent
Reason for Exam: seizure
04/20/24 05:25
Divalproex Delayed Rel. 12 Hr [Depakote (12 Hr Release)] 250 mg PO NOW STA
Lacosamide [Vimpat] 100 mg IV NOW STA
Levetiracetam Injectable [Keppra] 500 mg IV NOW STA
04/20/24 05:27
Consult Neurology [NEUROLOGY CONSULT] Urgent
Consulting Provider: Torito Kate
Was physician already notified: Yes
04/20/24 07:51
Add On- LAB Urgent
Tests Added?: Valproic acid
04/20/24 10:41
Valproic Acid [Depakene] 1,000 mg PO ONCE ONE
04/20/24 10:42
Levetiracetam [Keppra] 500 mg PO NOW STA
04/20/24 11:21
Lacosamide [Vimpat] 100 mg PO NOW STA
04/20/24 11:23
Lacosamide [Vimpat] 200 mg PO NOW STA
04/20/24 12:46
Valproic Acid Level [Depakane] Urgent
Abnormal Lab Results
04/20/24 04/20/24
03:06 03:30
Absolute Lymphs (auto) 0.9 L 10^3/uL
(1.2-3.4)
Absolute Monos (auto) 0.7 H 10^3/uL
(0.1-0.6)
Lymphocytes % 16.7 L %
(20.5-51.1)
Monocytes % 12.1 H %
(1.7-9.3)
Sodium 133 L mmol/L
(135-145)
Chloride 93 L mmol/L
(98-107)
Carbon Dioxide 32 H mmol/L
(22-30)
Glucose 102 H mg/dl
(70-99)
POC Glucose 103 H mg/dl
(70-99)
04/20/24 03:06
04/20/24 03:06
Vital Signs
Initial and Last Documented VS:
Initial Vital Signs
Temp Pulse Resp BP Pulse Ox
97.8 F 96 18 133/86 96
04/20/24 02:03 04/20/24 02:03 04/20/24 02:03 04/20/24 02:03 04/20/24 02:03
Last Documented Vital Signs
Temp Pulse Resp BP Pulse Ox
97.8 F 61 14 147/84 93
04/20/24 02:03 04/20/24 12:39 04/20/24 12:39 04/20/24 12:39 04/20/24 03:29
Mistilt;Michael Wu DO - Last Filed: 04/20/24 10:49>
*Critical Care Note
Total Time (30-74mins, 75-104mins- exclusive of procedures): Not Applicable
<Michael Wu, DO - Last Filed: 04/20/24 10:49>
Update Note
Update Note:
845-dw neurology, pt doing better
EEG pending
1045 reviewed with neurology EEG negative will refill his Vimpat
ED Attending Note
<Luis Miguel Vazquez, DO - Last Filed: 04/21/24 22:00>
-
Portions of this chart may have been created with voice recognition software.� Occasional wrong word or��sound alike� substitutions may have occurred due to the inherent limitations of voice recognition software.
Discharge Plan
Departure
Patient Disposition: Home (Routine Discharge)
Date of Disposition: 04/20/24
Time of Disposition: 05:29
Patient with high blood pressure during this ER visit?: No
Condition: Good
Discharge Problem:
Seizure
Instructions: Seizures, Adult (DC)
Prescriptions:
New
lacosamide [Vimpat] 100 mg tablet
300 mg PO BID Qty: 90 5RF
No Action
amlodipine 10 MG tablet
10 mg PO DAILY
vitamin B complex Tablet Extended Release
1 tab PO DAILY
thiamine HCl (vitamin B1) 100 mg Tablet
100 mg PO DAILY
lacosamide 150 mg tablet
300 mg PO BID
clobazam 10 mg tablet
15 mg PO TID
valproic acid 250 mg capsule
500 mg PO BID Qty: 60 0RF
sertraline 100 mg Tablet
100 mg PO DAILY
Rx Instructions:
dose increase on 12/13/23
levetiracetam [Keppra] 500 mg tablet
500 mg PO BID 30 Days Qty: 60 0RF
Referrals:
Caprice Mc DO [Family Provider] -
Interventions
Interventions:
*Risk Screen - Suicide Last Done: 04/20/24 02:03
*General Assessment Last Done: 04/20/24 02:03
*Neglect/Abuse Screening Last Done: 04/20/24 02:03
ED- Fall Risk Assessment Last Done: 04/20/24 03:29
*ED COVID-19 Vaccine History Last Done: 04/20/24 03:29
*Nursing Disposition Last Done: 04/20/24 13:01
ED- Cardiac Assessment Last Done: 04/20/24 03:29
ED- Neurological Assessment Last Done: 04/20/24 03:29
ED- Pulmonary Assessment Last Done: 04/20/24 03:29
Discharge Date and Time
Discharge Date/Time: 04/20/24 13:01
Print Language: SLOVENIAN
[2024-04-20 03:15] LABS: % Basophils 0.4 % (0-2); % Eosinophils 3.6 % (0-6); % Immature Granulocytes 0.2 % (0-0.5); % Lymphocytes 16.7 % (20.5-51.1); % Monocytes 12.1 % (1.7-9.3); Absolute Eosinophils 0.2 10^3/uL (0-0.7); Absolute Lymphocytes 0.9 10^3/uL (1.2-3.4); Absolute Monocytes 0.7 10^3/uL (0.1-0.6); Absolute Neutrophils 3.7 10^3/uL (1.4-6.5); Hematocrit 42.7 % (39.0-52.0); Hemoglobin 14.6 g/dL (13.0-18.0); Mean Corp Hgb Conc. 34.2 g/dL (33.0-37.0); Mean Corpuscular Volume 87.7 fL (80.0-94.0); Mean Platelet Volume 9.3 fL (7.4-10.4); Nucleated Red Blood Cells % 0 % (-); Platelet Count 213 10^3/uL (130-400); Red Blood Cell Count 4.87 10^6/uL (4.70-6.10); Red Cell Dist. Width 12.4 % (11.5-14.5); White Blood Cell Count 5.6 10^3/uL (4.8-10.8)
[2024-04-20 03:24] LABS: Erythrocyte Sed Rate 13 mm/hour (0-20)
[2024-04-20 03:27] LABS: APTT 26.2 Sec (23.4-35.0); INR 1.13; PT 14.3 Sec (11.4-14.6)
[2024-04-20 03:28] LABS: ALT (SGPT) 11 U/L (0-50); AST (SGOT) 20 U/L (17-59); Albumin 4.6 g/dl (3.5-5.0); Alkaline Phosphatase 56 U/L (38-126); Blood Urea Nitrogen 16 mg/dl (9-20); Calcium 9.5 mg/dl (8.4-10.2); Carbon Dioxide 32 mmol/L (22-30); Chloride 93 mmol/L (98-107); Estimated Creatinine Clearance 93 ml/min; Glucose 102 mg/dl (70-99); Potassium 4.4 mmol/L (3.5-5.1); Sodium 133 mmol/L (135-145); Total Bilirubin 0.4 mg/dl (0.2-1.3); Total Protein 7.9 g/dl (6.3-8.2); eGFR > 60.00
[2024-04-20 03:39] LABS: Troponin I < 0.012 ng/ml
[2024-04-20 03:40] LABS: Glucose - Point of Care 103 mg/dl (70-99)
[2024-04-20] MEDS: VALIUM INJECTION 2 MG IV (03:51)
[2024-04-20] MEDS: VIMPAT 100 MG IV (06:49)
[2024-04-20] MEDS: KEPPRA 500 MG IV (06:50)
--- NOTE | 2024-04-20 07:51 | CON.NEURO4 ---
Consultation - Neurology 4
-
CONSULTING PHYSICIAN: Neeraj Kate
REFERRING PHYSICIAN: ER
DICTATED BY: Neeraj Kate
DATE/TIME OF REQUEST: 04/20/24
DATE/TIME OF CONSULTATION: 04/20/24
Reason for Consultation: Seizure
History of Present Illness:
Patient is a 58 year old man with history of epilepsy, alcohol use disorder, hypertension, hypertension who presented to ED from home after seizure witnessed by his roommate. Patient is able to recall that he ran out of one of his medications but
isn't able to tell which one. He does endorse definitely being on Levetiracetam, Lacosamide, Depakote, possibly Onfi as he says one starts with an 'O.' Denies any recent illness no vomiting diarrhea sore throat fever or cough, no recent head
trauma. Denies active alcohol use, uses non-alcoholic beer. He did have some post ictal confusion for ED overnight led to keeping him until this morning for EEG
Past Medical History: Epilepsy, Wernicke-Korsakoff syndrome, previous subdural hematoma, hypertension, alcohol use disorder, hypertension, GERD, thoracic aortic aneurysm
Surgical History: Denies any surgeries
Family History: No history of seizure in the family
Social History: Lives at home in [place] with a roommate who is a friend of his 's, denies active alcohol use for about 1 year now uses some non alcoholic beer, no tobacco, denies recreational drugs
Allergies: No known drug allergies
Review of Symptoms:
Patient denies any fever, headache, chest pain, shortness of breath, GI or symptoms.
Physical Exam:
Middle aged man no distress resting comfortably, no head trauma, no tongue laceration seen, eyes clear, neck no masses no meningismus, heart rate regular, breathing unlabored, abdomen soft non tender, no lower extremity edema, no rash
Neurologic Examination:
Patient awakens easily and is conversational, knows the month, hospital ED for location. No aphasia, no neglect. Obeys multi step commands. Fund of knowledge adequate, able to tell me the state [place] the river in [place], name the [place]
river and that [place] crossed it many years ago. On cranial nerve assessment, pupils are 3 mm bilateral, round and reactive to light and accommodation. Visual morales are full. Extraocular movements are intact. Facial sensations are intact and
bilaterally symmetrical, there is no facial asymmetry. Hearing is intact bilaterally to normal conversation volume. Tongue palate and uvula are midline. Sternocleidomastoid strengths are full bilaterally. Motor strengths are 5/5 bilateral upper and
lower extremities on medical research [place] scale. No tremor seen. Deep tendon reflexes are 2+ bilateral upper and lower extremities and Babinski is absent bilaterally. Intact to light touch. Coordination is intact by finger to nose bilaterally.
Neuro Imaging: CT head with known left sided parafalcine meningioma, no acute abnormalities
Impressions
1. Seizure most likely due to recent running out of one of his seizure medications, has epilepsy, uncontrolled, without status epilepticus.
2. On my review of EEG no seizures or nonconvulsive seizures seen
3.
4.
Recommendations:
1. Give on dose 1000 mg Valproic acid, 500 mg Levetiracetam, and 300 mg Lacosamide all PO now
2. Refill for him the 300 mg BID Lacosamide
3. Asked him to call his regular neurologist
4. No barriers to discharge from ED
Discussed patient care with: Patient and ED
[2024-04-20] MEDS: DEPAKOTE (12 HR RELEASE) 250 MG PO (08:21)
[2024-04-20] MEDS: DEPAKENE 1000 MG PO (12:33)
[2024-04-20] MEDS: VIMPAT 200 MG PO (12:34)
[2024-04-20] MEDS: KEPPRA 500 MG PO (12:34)
[2024-04-20] MEDS: VIMPAT 100 MG PO (12:35)
[2024-04-20 13:14] LABS: Depakane 58.9 ug/ml (50.0-120.0)
--- NOTE | 2024-04-23 11:46 | EEG.RPT ---
Electroencephalogram Report
Recording
Date of EE04/23/24
Length of EEG recordin minutes
Done with Video Recording: Yes
Patient Status: Inpatient
Recording Conditions: Awake and Drowsy
Hyperventilation Performed: No
Photic Stimulation Performed: Yes
Report
LESS THAN 1 HOUR EEG INTERPRETATION:
Unremarkable EEG for age
CLINICAL CORRELATION:
A normal EEG does not rule out a diagnosis of epilepsy.� If clinical suspicion for seizure persists, a prolonged recording may be warranted.
Clinical correlation is advised.
METHODS:
A 21 channel digitized electroencephalogram (EEG) was performed using the 10/20 international system of electrode placement and one-lead of ECG recorded. Study lasted 31 minutes
ELECTROENCEPHALOGRAPHER IMPRESSION(S):
Quality of study
Good
Background
There was an unremarkable anterior-posterior voltage gradient of alpha frequency.
With eye opening the background activity changed to a low voltage mixture of frequencies.
There were no significant asymmetries of background activity noted.
Sleep
Drowsiness present
Photic Stimulation
No activation
ECG
Normal sinus rhythm
== END 2024-04-20 13:01 | disposition home or self-care (01) ==
LOC: EMR 01:59
PROVIDERS: Student in an Organized Health Care Education/Training Program; CONSULT PHYSICIAN Student in an Organized Health Care Education/Training Program; EMERGENCY PHYSICIAN Emergency Medicine; FAMILY PHYSICIAN Family Medicine
DX: G40.909 Epilepsy, unspecified, not intractable, without status epilepticus (principal); Z87.891 Personal history of nicotine dependence; I10 Essential (primary) hypertension
CPT/HCPCS: 99285; 96374; 96375 ×2; 70450; 80053; 80164; 82962; 84484; 85025; 85610; 85652; 85730; 93005; 95816; C9254

== ENCOUNTER 2024-06-25 18:00 | Inpatient (IN) | payer OTHER, SELFPAY ==
[2024-06-22] VITALS (7 sets, daily range): BP systolic 101–111; BP diastolic 61–78; BMI 27.1
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
[2024-06-22 13:10] LABS: % Basophils 0.4 % (0-2); % Eosinophils 4.9 % (0-6); % Immature Granulocytes 0.1 % (0-0.5); % Lymphocytes 19.7 % (20.5-51.1); % Monocytes 12.9 % (1.7-9.3); Absolute Eosinophils 0.4 10^3/uL (0-0.7); Absolute Lymphocytes 1.5 10^3/uL (1.2-3.4); Absolute Neutrophils 4.8 10^3/uL (1.4-6.5); Hematocrit 39.7 % (39.0-52.0); Hemoglobin 13.5 g/dL (13.0-18.0); Mean Corpuscular Hgb 29.7 pg (27.0-31.0); Mean Corpuscular Volume 87.4 fL (80.0-94.0); Mean Platelet Volume 10.9 fL (7.4-10.4); Nucleated Red Blood Cells % 0 % (-); Platelet Count 197 10^3/uL (130-400); Red Blood Cell Count 4.54 10^6/uL (4.70-6.10); Red Cell Dist. Width 13.3 % (11.5-14.5); White Blood Cell Count 7.7 10^3/uL (4.8-10.8)
[2024-06-22 13:28] LABS: ALT (SGPT) 11 U/L (0-50); AST (SGOT) 18 U/L (17-59); Albumin 4.4 g/dl (3.5-5.0); Alkaline Phosphatase 57 U/L (38-126); Blood Urea Nitrogen 40 mg/dl (9-20); Calcium 9.6 mg/dl (8.4-10.2); Carbon Dioxide 28 mmol/L (22-30); Chloride 102 mmol/L (98-107); Glucose 109 mg/dl (70-99); Potassium 4.5 mmol/L (3.5-5.1); Sodium 140 mmol/L (135-145); Total Bilirubin 0.6 mg/dl (0.2-1.3); Total Protein 7.7 g/dl (6.3-8.2); eGFR > 60.00
[2024-06-22 14:34] LABS: Ammonia < 9 umol/L (9-30)
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
[2024-06-22] MEDS: NSS 1000 IV (15:44)
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
[2024-06-22] MEDS: ONFI 15 MG PO (20:55)
[2024-06-22] MEDS: KEPPRA 500 MG PO (20:55)
[2024-06-22] MEDS: VIMPAT 300 MG PO (20:57)
[2024-06-22] MEDS: DEPAKENE 500 MG PO (20:58)
[2024-06-23 07:00] VITALS: BP 113/70
--- NOTE | 2024-06-23 07:42 | W.PN.HOSP.TC ---
Addendum entered and electronically signed by Rubén Shukla MD 06/23/24 21:19:
Attending Addendum-
I saw and evaluated the patient. I reviewed the resident�s note and agree with findings and plan as documented in the resident�s note. Sub: Patient poor historian. 'Im peeing all over myself, the nurses must hate me.' Generally a poor historian.
Full 12 point ROS reviewed and negative except as documented Exam: Vitals reviewed in chart GEN-NAD Heart RRR heart RRR lungs clear abd soft LE no edema Neuro AAOx1
PLAN:
# CIMS secondary to normal pressure hydrocephalus superimposed on chronic Wernicke's Korsakoff syndrome
-Urinalysis no done as ordered
-CT head shows no acute intracranial abnormality and shows unchanged central atrophy versus chronic obstructive hydrocephalus
-[facility] c/s for therapeutic LP
-possible transfer to [place] for HADOOP INFRA[employer]CHIT[employer] shunt if positive outcome from tap
# History of Wernicke Korsakoff syndrome
-Continue folic acid, thiamine
-No alcohol use in 2 years
# History of focal motor seizures
-Continue clobazam, Keppra, lacosamide, valproic acid
# History of subdural hematoma 2019
# Left parafalcine meningioma
# History of alcoholic hepatitis
# Peptic ulcer disease
-Continue Protonix
# Essential hypertension
-stable monitor continue amlodipine
# Anxiety/depression
-Continue sertraline
Full code
DVT prophylaxis�SCDs
Regular diet
Time spent coordinating care, review of plan of care with resident, personally reviewed records in EMR, med rec, consults, notes, labs, radiology, d/w nursing IRAD and POA � 60 mins
Original Note:
Today's Communication/Plan
-
.
Assessment / Plan
Assessment / Plan
58-year-old male with past medical history of Warnicke Korsakoff syndrome, hypertension, subdural hematoma in 2019, left parafalcine meningioma, alcoholic hepatitis presenting with difficulty walking and altered mental status.
1. AMS secondary to NPH on chronic Warnicke Korsakoff syndrome
- CT head shows no acute intracranial abnormality and shows unchanged central atrophy versus chronic obstructive hydrocephalus
-UA and culture pending
-LP result from [place] unremarkable with negative microbiology, improvement of symptoms after LP
-Patient supposed to meet with [place] neurologist and psychiatrist but due to transfer to [facility] and [facility] was unable to meet
-Records show concern for NPH and appointment with to discuss NSGY follow-up for HADOOP INFRASTRUCTURE ARCHITECT shunt
-IRAD consult placed for LP and fluid analysis. Appreciate input
2. Wernicke Korsakoff syndrome
-Continue folic acid, thiamine
-No alcohol for 2 years
3. Seizures
-Continue clobazam, Keppra, lacosamide, valproic acid
4. History of subdural hematoma
5. Left parafalcine angio
6. History of alcoholic Hepatitis
7. Peptic ulcer disease
-Continue Protonix
8. Essential hypertension
-Continue amlodipine
9. Anxiety/depression
-Continue sertraline
Full code
DVT prophylaxis�SCDs
Regular diet
Anticipated Discharge: 24 - 48 hours
Subjective/Interval History
-
Date of Service: June 23, 2024
58-year-old male with past medical history of Warnicke Korsakoff syndrome, hypertension, subdural hematoma in 2019, left parafalcine meningioma, alcoholic hepatitis presenting with difficulty walking and altered mental status. Patient report
feeling fine today. No shortness of breath, headaches, chest pain, nausea, vomiting, diarrhea, abdominal pain, numbness or tingling in extremities. Per nursing, he is confused and incontinent at baseline.
Objective Data
-
Labs:
Laboratory Results
06/23/24
06:00
WBC Pending
Hgb Pending
Hct Pending
Plt Count Pending
Sodium Pending
Potassium Pending
Chloride Pending
Carbon Dioxide Pending
BUN Pending
Creatinine Pending
Glucose Pending
Calcium Pending
Total Bilirubin Pending
AST Pending
ALT Pending
Alkaline Phosphatase Pending
Vital Signs:
Vital Signs
Temp Pulse Resp BP Pulse Ox
97.4 F 64 17 102/61 95
06/22/24 23:58 06/22/24 23:58 06/22/24 23:58 06/22/24 23:58 06/22/24 23:58
I&O
06/22/24 06/23/24 06/24/24
06:59 06:59 06:59
Intake Total 480 / 480
Balance 480 / 480
Review of Systems
-
History Source: Patient
All other systems: Reviewed and negative
Physical Exam
-
General: Other (Malnutrition)
HEENT: Normocephalic and Atraumatic
Respiratory: Clear to Auscultation and Non Labored Respirations
Cardiac: Regular Rhythm and S1/S2
GI: Soft, Nontender and Nondistended
Genito-urinary: Other (Incontinent. Utilizing diapers)
Musculoskeletal: No Clubbing, No Cyanosis and No Edema
Skin: Warm and Dry
Neuro: AO x 3
Psych: Calm
Data Reviewed
-
CT Scan: Report Reviewed by me and Discussed with Physician
Labs: Labs Reviewed by me and Discussed with Physician
Old Records: Reviewed
[2024-06-23] MEDS: VITAMIN B1 100 MG PO (09:21)
[2024-06-23] MEDS: B COMPLEX w/VITAMIN C 1 CAPLET PO (09:22)
[2024-06-23] MEDS: PROTONIX 40 MG PO (09:22)
[2024-06-23] MEDS: NORVASC 10 MG PO (09:22)
[2024-06-23] MEDS: VIMPAT 300 MG PO ×2 (09:22→21:04)
[2024-06-23] MEDS: ONFI 15 MG PO ×3 (09:24→21:04)
[2024-06-23] MEDS: ZOLOFT 150 MG PO (09:26)
[2024-06-23] MEDS: KEPPRA 500 MG PO ×2 (09:26→21:04)
[2024-06-23] MEDS: DEPAKENE 500 MG PO ×2 (09:27→21:04)
[2024-06-23] MEDS: FOLVITE 1 MG PO (09:27)
[2024-06-23 09:28] LABS: ALT (SGPT) < 10 U/L (0-50); AST (SGOT) 16 U/L (17-59); Albumin 3.5 g/dl (3.5-5.0); Alkaline Phosphatase 47 U/L (38-126); Blood Urea Nitrogen 36 mg/dl (9-20); Calcium 9.1 mg/dl (8.4-10.2); Carbon Dioxide 27 mmol/L (22-30); Chloride 105 mmol/L (98-107); Estimated Creatinine Clearance 101 ml/min; Glucose 87 mg/dl (70-99); Potassium 4.3 mmol/L (3.5-5.1); Sodium 138 mmol/L (135-145); Total Bilirubin 0.6 mg/dl (0.2-1.3); Total Protein 6.3 g/dl (6.3-8.2); eGFR > 60.00
[2024-06-23 11:03] LABS: % Basophils 0.6 % (0-2); % Eosinophils 14.2 % (0-6); % Immature Granulocytes 0.2 % (0-0.5); % Lymphocytes 21.6 % (20.5-51.1); % Monocytes 12.4 % (1.7-9.3); Absolute Eosinophils 0.7 10^3/uL (0-0.7); Absolute Lymphocytes 1.1 10^3/uL (1.2-3.4); Absolute Monocytes 0.6 10^3/uL (0.1-0.6); Absolute Neutrophils 2.5 10^3/uL (1.4-6.5); Hematocrit 34.4 % (39.0-52.0); Hemoglobin 11.6 g/dL (13.0-18.0); Mean Corp Hgb Conc. 33.7 g/dL (33.0-37.0); Mean Corpuscular Hgb 30.4 pg (27.0-31.0); Mean Corpuscular Volume 90.1 fL (80.0-94.0); Mean Platelet Volume 10.8 fL (7.4-10.4); Nucleated Red Blood Cells % 0 % (-); Platelet Count 157 10^3/uL (130-400); Red Blood Cell Count 3.82 10^6/uL (4.70-6.10); Red Cell Dist. Width 13.2 % (11.5-14.5)
[2024-06-23 15:00] VITALS: BP 115/68
--- NOTE | 2024-06-23 17:57 | W.PN.UPDATE ---
Update Note
Progress Note Update
Spoke to patient's primary contact, Socorro, his friend who stated he spoke with his neurologist at [place] today. Neurologist told him that Annie can set up transfer to get him to [place] so that they can further evaluate patient for SUPERVISOR METER SHOP
shunt placement. He also stated that patient's lives in [place] and is his power of litigation attorney associate. I spoke with , Delicia, on a conference call who consented to lumbar puncture procedure for short-term relief. She reiterated her want for her
to be transferred to [place] this week so that he can get a SUPERVISOR METER SHOP shunt for long-term symptom management. For any questions or consents needed, they stated to contact primary contact Socorro in charts and he can assist with conference call to
patient's in [place].
[2024-06-23 23:07] VITALS: BP 111/73
--- NOTE | 2024-06-24 00:15 | PTCARENOTE ---
Patient has become increasingly more confused throughout shift, is now starting to hallucinate, unable to follow commands well and has become agitated and combative with care. Patient states that he sees the tub on the ceiling and 'the people are in
it.' He states 'I have lived in this house for 30 years, I would know.' Notified WES Burgess of increased confusion and agitation/hallucinations. In MD reports it appears patient has not had alcohol for 2 years now, unsure of status as patient is
unable to provide any information. MSAS scoring ordered. Patient is currently a 6 on MSAS, no medications ordered or given at this time per QUARTZ ORIENTATOR. Patient able to calm down following incontinence care. Call campbell in reach, bed alarm maintained. Will
monitor.
--- NOTE | 2024-06-24 05:43 | PTCARENOTE ---
Patient noted to have decrease in urine output, where previously patient grossly incontinent. No urine output since approx midnight when condom catheter placed -- bladder scanned for 217ml, patient encouraged to attempt to urinate and he is unable
to at this time. Urine sample still outstanding. Will inform oncoming nurse and monitor.
[2024-06-24 07:00] VITALS: BP 118/69
[2024-06-24] MEDS: B COMPLEX w/VITAMIN C 1 CAPLET PO (07:36)
[2024-06-24] MEDS: ONFI 15 MG PO ×3 (07:36→21:20)
[2024-06-24] MEDS: VIMPAT 300 MG PO ×2 (07:37→21:18)
--- NOTE | 2024-06-24 07:38 | W.PN.HOSP.TC ---
Addendum entered and electronically signed by Rubén Shukla MD 06/24/24 22:53:
Attending Addendum-
I saw and evaluated the patient. I reviewed the resident�s note and agree with findings and plan as documented in the resident�s note. Sub: Patient poor historian. seen post LP, seems a little more alert. Generally a poor historian confabulating.
Has new rash on his arms/legs. itchy. Full 12 point ROS reviewed and negative except as documented Exam: Vitals reviewed in chart GEN-NAD Heart RRR lungs clear abd soft LE no edema Neuro AAOx2 sking red mac pap rash on arms legs and trunk
PLAN:
# Rash-
-seems like a drug rash
- possibly from lidoderm patch? - DC
- start atarax
- start PO steroid burst x 5 days
- elevated eosinophils in diff
- repeat CBC with diff in am
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
-Urinalysis-reviewed not indicative of UTI await final cx results
-CT head shows no acute intracranial abnormality and shows unchanged central atrophy versus chronic obstructive hydrocephalus
-LP- 06/24- not large volume only 24mls may need repeat tap fluid sent for analysis
-possible transfer to [place] for WIND TURBINE ERECTOR shunt if positive outcome from tap
# History of Wernicke Korsakoff syndrome
-Continue folic acid, thiamine
-No alcohol use in 2 years
# Leukopenia-
repeat CBC in am
unclear etiology-antiepileptic meds?
# History of focal motor seizures
-Continue clobazam, Keppra, lacosamide, valproic acid
# History of subdural hematoma 2019
# Left parafalcine meningioma
# History of alcoholic hepatitis
# Peptic ulcer disease
-Continue Protonix
# Essential hypertension
-stable monitor continue amlodipine
# Anxiety/depression
-Continue sertraline
Full code
DVT prophylaxis�SCDs
Regular diet
Time spent coordinating care, review of plan of care with resident, personally reviewed records in EMR, med rec, consults, notes, labs, radiology, d/w nursing � 55 mins
Original Note:
Today's Communication/Plan
-
.
Assessment / Plan
Assessment / Plan
58-year-old male with past medical history of Wernicke Korsakoff syndrome, hypertension, subdural hematoma in 2019, left parafalcine meningioma, alcoholic hepatitis presenting with difficulty walking and altered mental status.
1. AMS secondary to NPH on chronic Wernicke Korsakoff syndrome
- CT head shows no acute intracranial abnormality and shows unchanged central atrophy versus chronic obstructive hydrocephalus
- UA positive, culture pending. Asymptomatic.
-IRAD consult placed for LP and fluid analysis. Completed 06/24- pending result
- potential transfer to [place] for WIND TURBINE ERECTOR shunt if LP fluid analysis +
2. Wernicke Korsakoff syndrome
-Continue folic acid, thiamine
-No alcohol for 2 years
3. Seizures
-Continue clobazam, Keppra, lacosamide, valproic acid
4. History of subdural hematoma
5. Left parafalcine angio
6. History of alcoholic Hepatitis
7. Peptic ulcer disease
-Continue Protonix
8. Essential hypertension
-Continue amlodipine
9. Anxiety/depression
-Continue sertraline
10. Rash
- likely secondary to drug reaction
- Patient given Atarax
Full code
DVT prophylaxis�SCDs
Regular diet
Anticipated Discharge: 24 - 48 hours
Anticipated Discharge: 24 - 48 hours
Subjective/Interval History
-
Date of Service: June 24, 2024
Patient reports feeling well today. No overnight events. Patient states he has good appetite. He states that he thought he was at [place] and was confused when I told him we were at [place]. Today patient reports back pain, chronic.
Objective Data
-
Vital Signs:
Vital Signs
Temp Pulse Resp BP Pulse Ox
97.8 F 65 17 111/73 96
06/23/24 23:07 06/23/24 23:07 06/23/24 23:07 06/23/24 23:07 06/23/24 23:07
I&O
06/23/24 06/24/24 06/25/24
06:59 06:59 06:59
Intake Total 480 / 480 520 / 520
Balance 480 / 480 520 / 520
Review of Systems
-
History Source: Patient
All other systems: Reviewed and negative
Constitutional: Reports No Symptoms
EENT: Reports No Symptoms Reported
Respiratory: Reports No Symptoms
Cardiac: Reports No Symptoms
Abdomen/GI: Reports No Symptoms
Breast: Reports No Symptoms
Musculoskeletal: Reports Other (Back pain)
Skin: Reports No Symptoms
Neuro: Reports No Symptoms
Physical Exam
-
General: No Apparent Distress, Comfortable, Cachectic and Other (Malnourished)
HEENT: Normocephalic and Atraumatic
Respiratory: Clear to Auscultation
Cardiac: Regular Rhythm and S1/S2
GI: Soft, Nontender and Nondistended
Musculoskeletal: No Clubbing, No Cyanosis and No Edema
Skin: Warm, Dry and Rash
Neuro: AO x 3
Psych: Calm
Data Reviewed
-
Total Time Spent with Patient (in minutes): 30
Labs: Labs Reviewed by me and Discussed with Physician
Old Records: Reviewed
[2024-06-24] MEDS: NORVASC 10 MG PO (07:39)
[2024-06-24] MEDS: DEPAKENE 500 MG PO ×2 (07:39→21:18)
[2024-06-24] MEDS: PROTONIX 40 MG PO (07:39)
[2024-06-24] MEDS: ZOLOFT 150 MG PO (07:40)
[2024-06-24] MEDS: KEPPRA 500 MG PO ×2 (07:44→21:19)
[2024-06-24] MEDS: FOLVITE 1 MG PO (07:45)
[2024-06-24] MEDS: VITAMIN B1 100 MG PO (07:47)
[2024-06-24 11:07] LABS: ALT (SGPT) < 10 U/L (0-50); AST (SGOT) 16 U/L (17-59); Albumin 3.5 g/dl (3.5-5.0); Alkaline Phosphatase 50 U/L (38-126); Blood Urea Nitrogen 28 mg/dl (9-20); Calcium 9.2 mg/dl (8.4-10.2); Carbon Dioxide 29 mmol/L (22-30); Chloride 102 mmol/L (98-107); Estimated Creatinine Clearance 101 ml/min; Glucose 113 mg/dl (70-99); Potassium 3.6 mmol/L (3.5-5.1); Sodium 137 mmol/L (135-145); Total Bilirubin 0.4 mg/dl (0.2-1.3); Total Protein 6.4 g/dl (6.3-8.2); eGFR > 60.00
[2024-06-24 11:34] LABS: % Basophils 0.8 % (0-2); % Eosinophils 19.2 % (0-6); % Immature Granulocytes 0.3 % (0-0.5); % Lymphocytes 30.4 % (20.5-51.1); % Monocytes 10.8 % (1.7-9.3); % Neutrophils 38.5 % (42.2-75.2); Absolute Eosinophils 0.7 10^3/uL (0-0.7); Absolute Lymphocytes 1.1 10^3/uL (1.2-3.4); Absolute Monocytes 0.4 10^3/uL (0.1-0.6); Absolute Neutrophils 1.4 10^3/uL (1.4-6.5); Hematocrit 34.5 % (39.0-52.0); Mean Corp Hgb Conc. 34.8 g/dL (33.0-37.0); Mean Corpuscular Hgb 29.6 pg (27.0-31.0); Mean Corpuscular Volume 85.2 fL (80.0-94.0); Mean Platelet Volume 10.8 fL (7.4-10.4); Nucleated Red Blood Cells % 0 % (-); Platelet Count 193 10^3/uL (130-400); Red Blood Cell Count 4.05 10^6/uL (4.70-6.10); Red Cell Dist. Width 12.8 % (11.5-14.5); White Blood Cell Count 3.7 10^3/uL (4.8-10.8)
[2024-06-24 11:50] VITALS: BP 105/70; BP_SYST 56
[2024-06-24 11:58] LABS: Urine Albumin Negative (Neg - Trace); Urine Bilirubin 1+ (Negative); Urine Character Clear (Clear); Urine Color Yellow; Urine Glucose Negative (Negative); Urine Ketone Negative (Negative); Urine Leukocyte Trace (Negative); Urine Nitrite Negative (Negative); Urine Occult Blood Negative (Negative); Urine Specific Gravity 1.015 (<1.030); Urine Urobilinogen 2+ (Neg - 1+)
[2024-06-24 12:50] LABS: Urine Bacteria Few (Negative); Urine Red Blood Cell 0-2 /HPF (0-2)
[2024-06-24 12:58] VITALS: BP 120/76; BP_SYST 58
[2024-06-24 14:34] LABS: Spinal Fluid Glucose 62 mg/dl (40-70); Spinal Fluid Protein 54 mg/dl (12-60)
[2024-06-24 15:00] VITALS: BP 116/73
[2024-06-24 15:28] LABS: CSF Tube # 1
[2024-06-24 15:29] LABS: CSF Clarity Clear; CSF Color Colorless; White Cell Count/CSF 1 mm^3 (0-5)
[2024-06-24 15:30] LABS: CSF Clarity Clear; CSF Color Colorless; CSF Tube # 4; Red Cell Count/CSF 4 mm^3
[2024-06-24 15:31] LABS: White Cell Count/CSF 1 mm^3 (0-5)
[2024-06-24 15:32] LABS: Red Cell Count/CSF 1 mm^3
[2024-06-24] MEDS: ATARAX 12.5 MG PO (16:11)
[2024-06-24] MEDS: ATARAX PO (22:55)
[2024-06-24 23:22] VITALS: BP 109/63
[2024-06-25 03:42] VITALS: BP 103/64
[2024-06-25 07:00] VITALS: BP 112/74
[2024-06-25 07:32] LABS: % Basophils 0.6 % (0-2); % Eosinophils 18.2 % (0-6); % Immature Granulocytes 0.3 % (0-0.5); % Lymphocytes 24.6 % (20.5-51.1); % Monocytes 10.1 % (1.7-9.3); % Neutrophils 46.2 % (42.2-75.2); Absolute Eosinophils 0.7 10^3/uL (0-0.7); Absolute Lymphocytes 0.9 10^3/uL (1.2-3.4); Absolute Monocytes 0.4 10^3/uL (0.1-0.6); Absolute Neutrophils 1.7 10^3/uL (1.4-6.5); Hemoglobin 12.4 g/dL (13.0-18.0); Mean Corp Hgb Conc. 34.4 g/dL (33.0-37.0); Mean Corpuscular Hgb 30.3 pg (27.0-31.0); Mean Platelet Volume 10.3 fL (7.4-10.4); Nucleated Red Blood Cells % 0 % (-); Platelet Count 199 10^3/uL (130-400); Red Blood Cell Count 4.09 10^6/uL (4.70-6.10); Red Cell Dist. Width 12.8 % (11.5-14.5); White Blood Cell Count 3.6 10^3/uL (4.8-10.8)
--- NOTE | 2024-06-25 07:34 | W.PN.HOSP.TC ---
Addendum entered and electronically signed by Iraj Hooks MD 06/25/24 14:30:
I saw and evaluated the patient. I reviewed the resident�s note and agree with findings and plan as documented in the resident�s note.
Patient remains pleasantly disoriented at times. Physical therapist evaluated and continues to have difficulty following commands. Balance remains poor
1. NPH
-Patient have diagnosis of NPH and follows with neurology at [facility]
-Past lumbar puncture have helped relieve symptoms
-Patient underwent LP with drainage of 24 ml CSF yesterday. Difficult to assess symptoms completely although patient's balance issue persist
-Primary neurologist at [place] is considering to do TANK FARM GAUGER shunt and will try to contact and discuss possible transfer if indicated
2. TME
History of Wernicke Korsakoff syndrome
-Some ongoing worsening encephalopathy secondary to NPH
-On combination of clobazam/Keppra/valproic acid. no dose adjustment required this admit
-No signs of infection playing role
3. Rash
-suspected drug reaction vs other
-symptomatic care with atarax/short course steroids
-Oupt dermatology f/u if persists
4. History of seizure disorder
-Continue home dose of clobazam/Keppra/lacosamide/valproic
-Check valproate level
Care remains complex at this point
Change to inpatient level.
Total time spent : 55 mins
Original Note:
Today's Communication/Plan
-
.
Assessment / Plan
Assessment / Plan
58-year-old male with past medical history of Wernicke Korsakoff syndrome, hypertension, subdural hematoma in 2019, left parafalcine meningioma, alcoholic hepatitis presenting with difficulty walking and altered mental status.
AMS secondary to NPH on chronic Wernicke Korsakoff syndrome
- CT head shows no acute intracranial abnormality and shows unchanged central atrophy versus chronic obstructive hydrocephalus
- UA positive, culture pending. Asymptomatic.
-IRAD consult placed for LP and fluid analysis. Fluid analysis normal
- potential transfer to [place] for TANK FARM GAUGER shunt. Plan to talk to [place] neurology today.
Rash
- likely secondary to drug reaction, now resolved.
- Patient given Atarax
- start PO burst of steroids for 5 days - prednisone 40 mg
Wernicke Korsakoff syndrome
-Continue folic acid, thiamine
-No alcohol for 2 years
Seizures
-Continue clobazam, Keppra, lacosamide, valproic acid
History of subdural hematoma
Left parafalcine angio
History of alcoholic Hepatitis
Peptic ulcer disease
-Continue Protonix
Essential hypertension
-Continue amlodipine
Anxiety/depression
-Continue sertraline
Anticipated Discharge: 24 - 48 hours
Subjective/Interval History
-
Date of Service: June 25, 2024
Patient reports feeling well today. He believed we were at [facility] today. He does not report any nausea, vomiting, or headaches after LP procedure yesterday. He states that he is no longer itchy from the rash anymore.
Objective Data
-
Labs:
Laboratory Results
06/25/24
07:20
WBC 3.6 L
Hgb 12.4 L
Hct 36.0 L
Plt Count 199
Sodium Pending
Potassium Pending
Chloride Pending
Carbon Dioxide Pending
BUN Pending
Creatinine Pending
Glucose Pending
Calcium Pending
Total Bilirubin Pending
AST Pending
ALT Pending
Alkaline Phosphatase Pending
Vital Signs:
Vital Signs
Temp Pulse Resp BP Pulse Ox
97.4 F 55 18 103/64 98
06/25/24 03:42 06/25/24 03:42 06/25/24 03:42 06/25/24 03:42 06/25/24 03:42
I&O
06/24/24 06/25/24 06/26/24
06:59 06:59 06:59
Intake Total 520 / 520 480 / 480
Balance 520 / 520 480 / 480
Review of Systems
-
History Source: Patient
All other systems: Reviewed and negative
Physical Exam
-
General: No Apparent Distress, Comfortable and Cachectic
HEENT: Normocephalic and Atraumatic
Respiratory: Clear to Auscultation
Cardiac: Regular Rhythm and S1/S2
GI: Soft, Nontender and Nondistended
Musculoskeletal: No Clubbing, No Cyanosis and No Edema
Skin: Warm and Dry
Neuro: Awake, Alert and Oriented
Psych: Calm and Confused
Data Reviewed
-
Medical Tests (Nuc Med, Echo etc): Report Reviewed by me and Discussed with Physician
Labs: Labs Reviewed by me and Discussed with Physician
Old Records: Reviewed
[2024-06-25] MEDS: ONFI 15 MG PO ×3 (07:54→21:29)
[2024-06-25] MEDS: DELTASONE 40 MG PO (07:54)
[2024-06-25] MEDS: DEPAKENE 500 MG PO ×2 (07:54→20:01)
[2024-06-25] MEDS: B COMPLEX w/VITAMIN C 1 CAPLET PO (07:54)
[2024-06-25] MEDS: NORVASC 10 MG PO (07:55)
[2024-06-25] MEDS: ZOLOFT 150 MG PO (07:55)
[2024-06-25] MEDS: VITAMIN B1 100 MG PO (07:56)
[2024-06-25] MEDS: PROTONIX 40 MG PO (07:56)
[2024-06-25] MEDS: KEPPRA 500 MG PO ×2 (07:56→20:01)
[2024-06-25] MEDS: ATARAX 12.5 MG PO ×3 (07:56→21:29)
[2024-06-25] MEDS: FOLVITE 1 MG PO (07:56)
[2024-06-25] MEDS: VIMPAT 300 MG PO ×2 (07:56→20:01)
[2024-06-25 08:08] LABS: ALT (SGPT) < 10 U/L (0-50); AST (SGOT) 16 U/L (17-59); Albumin 3.5 g/dl (3.5-5.0); Alkaline Phosphatase 46 U/L (38-126); Blood Urea Nitrogen 30 mg/dl (9-20); Calcium 9.3 mg/dl (8.4-10.2); Carbon Dioxide 28 mmol/L (22-30); Chloride 105 mmol/L (98-107); Estimated Creatinine Clearance 101 ml/min; Glucose 94 mg/dl (70-99); Potassium 4.1 mmol/L (3.5-5.1); Sodium 139 mmol/L (135-145); Total Bilirubin 0.2 mg/dl (0.2-1.3); Total Protein 6.2 g/dl (6.3-8.2); eGFR > 60.00
[2024-06-25 15:00] VITALS: BP 108/71
--- NOTE | 2024-06-25 16:40 | CM ---
Case management following for discharge planning
Chart reviewed
PT/OT recs - SNF
No accepting facilities thus far - additional referrals sent in [facility]
Will need auth
Plan - anticipate SNF when medically stable
[2024-06-25 23:11] VITALS: BP 108/73
[2024-06-26 06:55] VITALS: BP 108/68
--- NOTE | 2024-06-26 07:16 | W.PN.HOSP.TC ---
Today's Communication/Plan
-
.
Assessment / Plan
Assessment / Plan
58-year-old male with past medical history of Wernicke Korsakoff syndrome, hypertension, subdural hematoma in 2019, left parafalcine meningioma, alcoholic hepatitis presenting with difficulty walking and altered mental status.
AMS secondary to NPH on chronic Wernicke Korsakoff syndrome
- CT head shows no acute intracranial abnormality and shows unchanged central atrophy versus chronic obstructive hydrocephalus
- UA positive, culture pending. Asymptomatic.
- IRAD consult placed for LP and fluid analysis. Fluid analysis normal
- potential transfer to [place] for PEELER OPERATOR shunt. Reached out to [place] neurology to get back to us regarding transfer
Rash
- likely secondary to drug reaction, now resolved.
- Patient given Atarax
- start PO burst of steroids for 5 days - prednisone 40 mg
Wernicke Korsakoff syndrome
-Continue folic acid, thiamine
-No alcohol for 2 years
Seizures
-Continue clobazam, Keppra, lacosamide, valproic acid
History of subdural hematoma
Left parafalcine angio
History of alcoholic Hepatitis
Peptic ulcer disease
-Continue Protonix
Essential hypertension
-Continue amlodipine
Anxiety/depression
-Continue sertraline
Anticipated Discharge: 24 - 48 hours
Subjective/Interval History
-
Date of Service: June 26, 2024
Patient continues to remain pleasantly confused. He states his rash is less itchy. He is unable to answer many questions because of altered mental status
Objective Data
-
Vital Signs:
Vital Signs
Temp Pulse Resp BP Pulse Ox
97.7 F 61 17 108/68 95
06/26/24 06:55 06/26/24 06:55 06/26/24 06:55 06/26/24 06:55 06/26/24 06:55
I&O
06/25/24 06/26/24 06/27/24
06:59 06:59 06:59
Intake Total 480 / 480 480 / 480
Balance 480 / 480 480 / 480
Review of Systems
-
Unable to obtain full review of systems at this time due to: Other (Patient is confused)
History Source: Patient
Physical Exam
-
General: No Apparent Distress, Comfortable and Cachectic
HEENT: Normocephalic and Atraumatic
Respiratory: Clear to Auscultation
Cardiac: Regular Rhythm and S1/S2
GI: Soft, Nontender and Nondistended
Musculoskeletal: No Clubbing, No Cyanosis and No Edema
Skin: Warm, Dry and Rash (Bilateral erythematous blanching rash on both upper EXTR and)
Neuro: Awake, Alert and Oriented (Oriented to person)
Psych: Calm and Confused
Data Reviewed
-
Total Time Spent with Patient (in minutes): 20
Labs: Labs Reviewed by me and Discussed with Physician
Old Records: Reviewed
[2024-06-26 09:02] LABS: % Basophils 0.5 % (0-2); % Eosinophils 6.5 % (0-6); % Immature Granulocytes 0.2 % (0-0.5); % Lymphocytes 35.7 % (20.5-51.1); % Monocytes 10.2 % (1.7-9.3); % Neutrophils 46.9 % (42.2-75.2); Absolute Eosinophils 0.3 10^3/uL (0-0.7); Absolute Lymphocytes 1.4 10^3/uL (1.2-3.4); Absolute Monocytes 0.4 10^3/uL (0.1-0.6); Absolute Neutrophils 1.9 10^3/uL (1.4-6.5); Hematocrit 34.7 % (39.0-52.0); Hemoglobin 12.2 g/dL (13.0-18.0); Mean Corp Hgb Conc. 35.2 g/dL (33.0-37.0); Mean Corpuscular Hgb 30.6 pg (27.0-31.0); Mean Platelet Volume 10.6 fL (7.4-10.4); Nucleated Red Blood Cells % 0 % (-); Platelet Count 208 10^3/uL (130-400); Red Blood Cell Count 3.99 10^6/uL (4.70-6.10); Red Cell Dist. Width 12.7 % (11.5-14.5)
[2024-06-26 09:28] LABS: ALT (SGPT) < 10 U/L (0-50); AST (SGOT) 19 U/L (17-59); Albumin 3.6 g/dl (3.5-5.0); Alkaline Phosphatase 43 U/L (38-126); Blood Urea Nitrogen 32 mg/dl (9-20); Calcium 9.3 mg/dl (8.4-10.2); Carbon Dioxide 25 mmol/L (22-30); Chloride 106 mmol/L (98-107); Estimated Creatinine Clearance 101 ml/min; Glucose 90 mg/dl (70-99); Sodium 139 mmol/L (135-145); Total Bilirubin 0.4 mg/dl (0.2-1.3); Total Protein 6.6 g/dl (6.3-8.2); eGFR > 60.00
[2024-06-26] MEDS: VIMPAT 300 MG PO ×2 (09:30→21:05)
[2024-06-26] MEDS: PROTONIX 40 MG PO (09:31)
[2024-06-26] MEDS: ATARAX 12.5 MG PO ×3 (09:31→21:05)
[2024-06-26] MEDS: DELTASONE 40 MG PO (09:31)
[2024-06-26] MEDS: DEPAKENE 500 MG PO ×2 (09:31→21:06)
[2024-06-26] MEDS: B COMPLEX w/VITAMIN C 1 CAPLET PO (09:31)
[2024-06-26] MEDS: ZOLOFT 150 MG PO (09:31)
[2024-06-26] MEDS: FOLVITE 1 MG PO (09:34)
[2024-06-26] MEDS: ONFI 15 MG PO ×4 (09:34→21:06)
[2024-06-26] MEDS: VITAMIN B1 100 MG PO (09:34)
[2024-06-26] MEDS: KEPPRA 500 MG PO ×2 (09:35→21:06)
[2024-06-26] MEDS: NORVASC 10 MG PO (09:35)
--- NOTE | 2024-06-26 14:08 | W.PN.UPDATE ---
Addendum entered and electronically signed by Iraj Hooks MD 06/26/24 17:56:
No contact back from primary neurology, will contact office again tomorrow.
Original Note:
Update Note
Progress Note Update
I saw and evaluated the patient. I reviewed the resident�s note and agree with findings and plan as documented in the resident�s note.
I saw and evaluated the patient. I reviewed the resident�s note and agree with findings and plan as documented in the resident�s note.
Patient remains pleasantly disoriented at times. Physical therapist evaluated and continues to have difficulty following commands. Balance remains poor
1. NPH
-Patient have diagnosis of NPH and follows with neurology at [facility]
-Past lumbar puncture have helped relieve symptoms
-Patient underwent LP with drainage of 24 ml CSF yesterday. Difficult to assess symptoms completely although patient's balance issue persist
-Primary neurologist at [place] is considering to do COAL SHOVELER shunt and will try to contact and discuss possible transfer if indicated
2. TME - improved
History of Wernicke Korsakoff syndrome
-Some ongoing worsening encephalopathy secondary to NPH
-On combination of clobazam/Keppra/valproic acid. no dose adjustment required this admit
-No signs of infection playing role
-Patient current symptoms likely at baseline with underlying Warnicke Korsakoff syndrome.
3. Rash
-suspected drug reaction vs other
-symptomatic care with atarax/short course steroids
-Oupt dermatology f/u if persists
4. History of seizure disorder
-Continue home dose of clobazam/Keppra/lacosamide/valproic
-Check valproate level
Contacted patient neurology Dr. Brandt office in the morning, wrong physician.
Talked to friend Eyup/caregiver and got correct physician name and contact number Dr Miguel Angel Brandt - [phone]. Left a message with office answering service for call back to discuss patient finding
Total time spent : 53 mins
[2024-06-26 14:38] VITALS: BP 106/66; PULSE 73
[2024-06-26 15:14] VITALS: BP 106/66
--- NOTE | 2024-06-26 16:55 | PTCARENOTE ---
While cleaning patient, found cyst-like bump on left upper back. Cleaned. Made MD aware.
--- NOTE | 2024-06-26 17:35 | W.PN.UPDATE ---
Update Note
Progress Note Update
Per nursing new raised lesion identified on left lateral lower back. Upon examination, lesion is round, 2 cm in width, nonerythematous, mobile with confluence. Patient reports no pain with palpation or manipulation. No identifiable puncture or
drainage from site. Continue to monitor. Likely lipoma.
[2024-06-26 23:15] VITALS: BP 104/70
[2024-06-27 07:00] VITALS: BP 123/73
--- NOTE | 2024-06-27 07:28 | W.PN.HOSP.TC ---
Addendum entered and electronically signed by Iraj Hooks MD 06/27/24 14:43:
I saw and evaluated the patient. I reviewed the resident�s note and agree with findings and plan as documented in the resident�s note.
Patient remains confused AOx1 for me. balance remains off.
1. NPH
-Patient have diagnosis of NPH and follows with neurology at [facility]
-Past lumbar puncture have helped relieve symptoms
-Patient underwent LP with drainage of 24 ml CSF yesterday. Difficult to assess symptoms completely although patient's balance issue persist
-Discussed case with primary neurologist Dr Miguel Angel Brandt, who recommended patient to transfer to [facility] for ongoing confusion/balance issues.
2. TME - Reoccuring
History of Wernicke Korsakoff syndrome
-Some ongoing worsening encephalopathy secondary to NPH
-On combination of clobazam/Keppra/valproic acid. no dose adjustment required this admit
-No signs of infection playing role
-LP did not show any elevated cell count/TP
3. Rash
-suspected drug reaction vs other
-symptomatic care with atarax/short course steroids
-Oupt dermatology f/u if persists
4. History of seizure disorder
-Continue home dose of clobazam/Keppra/lacosamide/valproic
-Valproate levle WNL
Care plan discussed with patient primary neurology Dr Miguel Angel Brandt from [facility] . Contacted transfer center to initiate transfer, awaiting call back
Original Note:
Today's Communication/Plan
-
.
Assessment / Plan
Assessment / Plan
58-year-old male with past medical history of Wernicke Korsakoff syndrome, hypertension, subdural hematoma in 2019, left parafalcine meningioma, alcoholic hepatitis presenting with difficulty walking and altered mental status.
AMS secondary to NPH on chronic Wernicke Korsakoff syndrome
- CT head shows no acute intracranial abnormality and shows unchanged central atrophy versus chronic obstructive hydrocephalus
- UA positive, culture pending. Asymptomatic.
- IRAD consult placed for LP and fluid analysis. Fluid analysis normal
- potential transfer to [place] for ROLLING MACHINE OPERATOR shunt. Reached out to [place] neurology to get back to us regarding transfer
Rash
- likely secondary to drug reaction, now resolved.
- Patient given Atarax
- start PO burst of steroids for 5 days - prednisone 40 mg
Wernicke Korsakoff syndrome
-Continue folic acid, thiamine
-No alcohol for 2 years
Seizures
-Continue clobazam, Keppra, lacosamide, valproic acid
History of subdural hematoma
Left parafalcine angio
History of alcoholic Hepatitis
Peptic ulcer disease
-Continue Protonix
Essential hypertension
-Continue amlodipine
Anxiety/depression
-Continue sertraline
Full code
Anticipated Discharge: 24 - 48 hours
Subjective/Interval History
-
Date of Service: June 27, 2024
Patient is pleasantly confused today. He states he has been having dreams about being in a basement as the OUTPATIENT RECEPTIONIST of a company. He reports no abdominal pain, chest pain, shortness of breath, headaches, dizziness, numbness or tingling or itchiness
from residual rash.
Objective Data
-
Labs:
Laboratory Results
06/27/24
06:00
WBC Pending
Hgb Pending
Hct Pending
Plt Count Pending
Sodium Pending
Potassium Pending
Chloride Pending
Carbon Dioxide Pending
BUN Pending
Creatinine Pending
Glucose Pending
Calcium Pending
Total Bilirubin Pending
AST Pending
ALT Pending
Alkaline Phosphatase Pending
Vital Signs:
Vital Signs
Temp Pulse Resp BP Pulse Ox
98.2 F 57 18 104/70 95
06/26/24 23:15 06/26/24 23:15 06/26/24 23:15 06/26/24 23:15 06/26/24 23:15
I&O
06/26/24 06/27/24 06/28/24
06:59 06:59 06:59
Intake Total 480 / 480 510 / 510
Balance 480 / 480 510 / 510
Review of Systems
-
History Source: Patient
All other systems: Reviewed and negative
Physical Exam
-
General: Well Developed, No Apparent Distress, Conversant and Appears Chronically Ill
HEENT: Normocephalic and Atraumatic
Respiratory: Clear to Auscultation
Cardiac: Regular Rhythm and S1/S2
GI: Soft, Nontender and Nondistended
Musculoskeletal: No Clubbing, No Cyanosis, No Edema and Other (Mild erythematous blanching rash bilaterally upper extremity)
Skin: Warm and Dry
Neuro: Awake and Alert
Psych: Calm
Data Reviewed
-
Labs: Labs Reviewed by me and Discussed with Physician
Old Records: Reviewed
[2024-06-27] MEDS: PROTONIX 40 MG PO (08:01)
[2024-06-27] MEDS: KEPPRA 500 MG PO ×2 (08:01→19:15)
[2024-06-27] MEDS: ATARAX 12.5 MG PO ×2 (08:01→16:05)
[2024-06-27] MEDS: ZOLOFT 150 MG PO (08:02)
[2024-06-27] MEDS: NORVASC 10 MG PO (08:02)
[2024-06-27] MEDS: FOLVITE 1 MG PO (08:02)
[2024-06-27] MEDS: DEPAKENE 500 MG PO ×2 (08:02→19:15)
[2024-06-27] MEDS: VITAMIN B1 100 MG PO (08:03)
[2024-06-27] MEDS: DELTASONE 40 MG PO (08:03)
[2024-06-27] MEDS: VIMPAT 300 MG PO (08:04)
[2024-06-27] MEDS: B COMPLEX w/VITAMIN C 1 CAPLET PO (08:04)
[2024-06-27] MEDS: ONFI 15 MG PO ×2 (08:13→16:04)
[2024-06-27 08:36] LABS: Hemoglobin 12.1 g/dL (13.0-18.0); Mean Corp Hgb Conc. 34.6 g/dL (33.0-37.0); Mean Corpuscular Hgb 29.7 pg (27.0-31.0); Mean Platelet Volume 10.3 fL (7.4-10.4); Platelet Count 235 10^3/uL (130-400); Red Blood Cell Count 4.07 10^6/uL (4.70-6.10); Red Cell Dist. Width 12.7 % (11.5-14.5); White Blood Cell Count 4.6 10^3/uL (4.8-10.8)
[2024-06-27 10:09] LABS: ALT (SGPT) < 10 U/L (0-50); AST (SGOT) 16 U/L (17-59); Albumin 3.7 g/dl (3.5-5.0); Alkaline Phosphatase 52 U/L (38-126); Blood Urea Nitrogen 28 mg/dl (9-20); Calcium 9.3 mg/dl (8.4-10.2); Carbon Dioxide 28 mmol/L (22-30); Chloride 103 mmol/L (98-107); Estimated Creatinine Clearance 101 ml/min; Glucose 83 mg/dl (70-99); Potassium 3.8 mmol/L (3.5-5.1); Sodium 138 mmol/L (135-145); Total Bilirubin 0.2 mg/dl (0.2-1.3); Total Protein 6.7 g/dl (6.3-8.2); eGFR > 60.00
[2024-06-27 15:00] VITALS: BP 117/71
--- NOTE | 2024-06-27 17:26 | PTCARENOTE ---
patient is being accepted to [facility] with bed on 3WE. report will be called to upcoming nurse
[2024-06-27 19:45] VITALS: BP 112/65
--- NOTE | 2024-06-27 20:16 | PTCARENOTE ---
Acute care ambulance came and burr picker pt to transfer to [facility].
== END 2024-06-27 20:28 | disposition short-term general hospital (02) | DRG 56 ==
LOC: 3 WEST ACU 18:00
PROVIDERS: Radiology Vascular & Interventional Radiology; Registered Nurse; Student in an Organized Health Care Education/Training Program; ADMITTING PHYSICIAN Hospitalist; ATTENDING PHYSICIAN Hospitalist; EMERGENCY PHYSICIAN Emergency Medicine
PROC: B01B1ZZ Fluoroscopy of Spinal Cord using Low Osmolar Contrast (ICD-10-PCS; 2024-06-24)
PROC: 009U3ZX Drainage of Spinal Canal, Percutaneous Approach, Diagnostic (ICD-10-PCS; 2024-06-24)
DX: G91.2 (Idiopathic) normal pressure hydrocephalus (principal); G92.8 Other toxic encephalopathy; Z87.891 Personal history of nicotine dependence; F10.26 Alcohol dependence with alcohol-induced persisting amnestic disorder
CPT/HCPCS: 62328; 70450; 80053; 80164; 81003; 81015; 82140; 82945; 84157; 85025; 85027; 87015; 87070; 87205; 89051; 93005; 96360; 97530; 99285

== ENCOUNTER 2025-07-16 15:20 | Inpatient (IN) | payer MEDICARE, SELFPAY ==
[2025-07-16] VITALS (19 sets, daily range): BP systolic 106–150; BP diastolic 63–100; BMI 34.4; BMI 32.0
[2025-07-16] MEDS: OFIRMEV 100 IV ×2 (10:18→16:28)
[2025-07-16] MEDS: NSS 1000 IV ×2 (10:18→14:12)
--- NOTE | 2025-07-16 10:38 | ED.GENMED ---
History of Present Illness
<Deja Zambrano PA-C - Last Filed: 07/16/25 15:19>
General
Chief Complaint: Facial Problem
Time Seen by Provider: 07/16/25 09:50
History of Present Illness
History of Present Illness:
see MDM
Past History
<Deja Zambrano PA-C - Last Filed: 07/16/25 15:19>
Past History
ED Past Medical History: HTN, Seizures, Other (Alcohol intoxication with hallucinations, Dizziness, GI bleeding due to Ulcers) and Other; Negative Asthma, Hypercholesterolemia or NIDDM
ED Past Surgical History: None
Social History
Tobacco: Former smoker
Alcohol: Former ([employer] 4 during the week and 6 on the weekends None since March 2023)
Drug: None
Personal:
Living: with family
Employment: Not employed
Family History
Family History: Other (Noncontributory)
Phy Exam
<Deja Zambrano PA-C - Last Filed: 07/16/25 15:19>
Physical Exam
Physical Exam:
see MDM
Course
<Deja Zambrano PA-C - Last Filed: 07/16/25 15:19>
Orders/Labs/Results
Orders:
Orders
07/16/25 10:01
CT Neck With Iv Contrast Urgent
Comment:
Reason For Exam: L dental abscess, ludwigs; teeth down through neck
07/16/25 10:09
0.9% Sodium Chloride 1000 ml [Nss] 1,000 ml IV BOLUS
Acetaminophen 1000MG/100Ml [Ofirmev] 1,000 mg in 100 ml IV ONCE
Acetaminophen IV Indication:: ED Narcotic Naive Pt-ONCE
07/16/25 10:11
Complete Blood Count/With Diff Urgent
Comprehensive Metabolic Panel Urgent
Lactic Acid Q4H
Comment: CANCEL 2nd LACTIC ACID IF 1st LACTIC ACID IS LESS THAN 2
PTT Urgent
Prothrombin Time Urgent
Blood Culture Q30M
GENET Source: Blood/Venous
Specimen Description:
07/16/25 11:32
Blood Culture Q30M
GENET Source: Blood/Venous
Specimen Description:
07/16/25 12:57
Ampicillin/Sulbactam 3 G [Unasyn] 3 gm 0.9% Sodium Chloride 100 ml [Nss] 100 ml IV NOW
07/16/25 13:11
Admit/Transfer Patient As Directed
Co-Sign Provider:
Level of Care: Inpatient admission
Assign to:: Telemetry
Physician / Group: jewel
Diagnosis: Sepsis, Dental Abscess
Reason for Telemetry: Arrhythmia
Date to Stop Telemetry: 07/19/25
Time to Stop Telemetry: 11:00
Reason for Hospitalization: IV abx
Expected length of stay greater than two midnights?: Yes
ELOS- Estimated Length of Stay in days: 3
I certify the patient meets the requirements for IP care: Yes
07/16/25 13:12
PRN Pain Medication Management As Directed
May give lesser potent ordered pain med per pt: Yes
preference::
Protocol:: Medication orders for pain may be administered in a
manner that supports deferring to patient preference
when the pt is:
- Requesting an ordered lesser potent pain medication.
Least to most potent pain medications are defined
as: acetaminophen < NSAID < tramadol < opioids
(morphine, oxycodone, hydromorphone).
- Requesting a lesser dose of the same medication IF
ORDERED.
- Requesting a less intrusive route of administration
if both routes are prescribed by the provider (PO <
IV).
07/16/25 13:13
Code Status As Directed
Resuscitation Status: Full Code
07/16/25 13:30
0.9% Sodium Chloride 1000 ml [Nss] 1,000 ml IV 100 mls/hr
07/16/25 13:58
Fentanyl Citrate/Pf [Sublimaze] 25 mcg IV [id number] PRN
HYDROmorphone [Dilaudid] 0.25 mg IV PACU-Q5MPRN PRN
HYDROmorphone [Dilaudid] 0.5 mg IV PACU-Q5MPRN PRN
Ondansetron Injectable [Zofran] 4 mg IV PACU-ONCEPRN PRN
Prochlorperazine [Compazine] 5 mg IV PACU-ONCEPRN PRN
Notify MD As Directed
Notify physician if: for SDS patients with known or suspected sleep obstructive sleep apnea, monitor in the
PACU.
Notify MD for any apneic/desaturation episodes
O2 Therapy [RESP] Urgent
Titrate/Wean O2 to maintain O2 sat greater than (%): 92
Special Instructions: -Provide supplemental oxygen to achieve O2 sat of 92% or greater.
-After 15 min, may wean O2 and discontinue if patient is able to maintain O2 sat of 92%
or greater during recovery period.
If patient is a discharge home, without oxygen therapy, notify anestheiologist if
unable to maintain O2 SAT of 92% or greater on room air for MD clearance.
07/16/25 14:00
Normosol (Mult Electrolytes) [Normosol-R/Plasmalyte-A] 1,000 ml IV PER PROTOCOL
07/19/25 11:00
DC Protocol for Telemetry ONCE
Abnormal Lab Results
07/16/25
10:11
WBC 13.1 H 10^3/uL
(4.8-10.8)
RBC 4.46 L 10^6/uL
(4.70-6.10)
Hct 38.1 L %
(39.0-52.0)
Abs Immat Gran (auto) 0.1 H 10^3/uL
(0-0.05)
Absolute Neuts (auto) 9.6 H 10^3/uL
(1.4-6.5)
Absolute Monos (auto) 2.2 H 10^3/uL
(0.1-0.6)
Lymphocytes % 9.5 L %
(20.5-51.1)
Monocytes % 16.7 H %
(1.7-9.3)
PT 15.0 H Sec
(11.4-14.6)
Sodium 132 L mmol/L
(135-145)
Chloride 97 L mmol/L
(98-107)
BUN 26 H mg/dl
(9-20)
Glucose 124 H mg/dl
(70-99)
07/16/25 10:11
07/16/25 10:11
Vital Signs
Initial and Last Documented VS:
Initial Vital Signs
Temp Pulse Resp BP Pulse Ox
37.1 C 130 18 124/88 94
07/16/25 09:44 07/16/25 09:44 07/16/25 09:44 07/16/25 09:44 07/16/25 09:44
Last Documented Vital Signs
Temp Pulse Resp BP Pulse Ox
36.8 C 81 22 133/84 92
07/16/25 14:27 07/16/25 15:00 07/16/25 15:00 07/16/25 14:00 07/16/25 14:30
<Rubén Gonzalez MD - Last Filed: 07/16/25 15:04>
Orders/Labs/Results
Orders:
Orders
07/16/25 10:01
CT Neck With Iv Contrast Urgent
Comment:
Reason For Exam: L dental abscess, ludwigs; teeth down through neck
07/16/25 10:09
0.9% Sodium Chloride 1000 ml [Nss] 1,000 ml IV BOLUS
Acetaminophen 1000MG/100Ml [Ofirmev] 1,000 mg in 100 ml IV ONCE
Acetaminophen IV Indication:: ED Narcotic Naive Pt-ONCE
07/16/25 10:11
Complete Blood Count/With Diff Urgent
Comprehensive Metabolic Panel Urgent
Lactic Acid Q4H
Comment: CANCEL 2nd LACTIC ACID IF 1st LACTIC ACID IS LESS THAN 2
PTT Urgent
Prothrombin Time Urgent
Blood Culture Q30M
GENET Source: Blood/Venous
Specimen Description:
07/16/25 11:32
Blood Culture Q30M
GENET Source: Blood/Venous
Specimen Description:
07/16/25 12:57
Ampicillin/Sulbactam 3 G [Unasyn] 3 gm 0.9% Sodium Chloride 100 ml [Nss] 100 ml IV NOW
07/16/25 13:11
Admit/Transfer Patient As Directed
Co-Sign Provider:
Level of Care: Inpatient admission
Assign to:: Telemetry
Physician / Group: jewel
Diagnosis: Sepsis, Dental Abscess
Reason for Telemetry: Arrhythmia
Date to Stop Telemetry: 07/19/25
Time to Stop Telemetry: 11:00
Reason for Hospitalization: IV abx
Expected length of stay greater than two midnights?: Yes
ELOS- Estimated Length of Stay in days: 3
I certify the patient meets the requirements for IP care: Yes
07/16/25 13:12
PRN Pain Medication Management As Directed
May give lesser potent ordered pain med per pt: Yes
preference::
Protocol:: Medication orders for pain may be administered in a
manner that supports deferring to patient preference
when the pt is:
- Requesting an ordered lesser potent pain medication.
Least to most potent pain medications are defined
as: acetaminophen < NSAID < tramadol < opioids
(morphine, oxycodone, hydromorphone).
- Requesting a lesser dose of the same medication IF
ORDERED.
- Requesting a less intrusive route of administration
if both routes are prescribed by the provider (PO <
IV).
07/16/25 13:13
Code Status As Directed
Resuscitation Status: Full Code
07/16/25 13:30
0.9% Sodium Chloride 1000 ml [Nss] 1,000 ml IV 100 mls/hr
07/16/25 13:58
Fentanyl Citrate/Pf [Sublimaze] 25 mcg IV [id number] PRN
HYDROmorphone [Dilaudid] 0.25 mg IV PACU-Q5MPRN PRN
HYDROmorphone [Dilaudid] 0.5 mg IV PACU-Q5MPRN PRN
Ondansetron Injectable [Zofran] 4 mg IV PACU-ONCEPRN PRN
Prochlorperazine [Compazine] 5 mg IV PACU-ONCEPRN PRN
Notify MD As Directed
Notify physician if: for SDS patients with known or suspected sleep obstructive sleep apnea, monitor in the
PACU.
Notify MD for any apneic/desaturation episodes
O2 Therapy [RESP] Urgent
Titrate/Wean O2 to maintain O2 sat greater than (%): 92
Special Instructions: -Provide supplemental oxygen to achieve O2 sat of 92% or greater.
-After 15 min, may wean O2 and discontinue if patient is able to maintain O2 sat of 92%
or greater during recovery period.
If patient is a discharge home, without oxygen therapy, notify anestheiologist if
unable to maintain O2 SAT of 92% or greater on room air for MD clearance.
07/16/25 14:00
Normosol (Mult Electrolytes) [Normosol-R/Plasmalyte-A] 1,000 ml IV PER PROTOCOL
07/19/25 11:00
DC Protocol for Telemetry ONCE
Abnormal Lab Results
07/16/25
10:11
WBC 13.1 H 10^3/uL
(4.8-10.8)
RBC 4.46 L 10^6/uL
(4.70-6.10)
Hct 38.1 L %
(39.0-52.0)
Abs Immat Gran (auto) 0.1 H 10^3/uL
(0-0.05)
Absolute Neuts (auto) 9.6 H 10^3/uL
(1.4-6.5)
Absolute Monos (auto) 2.2 H 10^3/uL
(0.1-0.6)
Lymphocytes % 9.5 L %
(20.5-51.1)
Monocytes % 16.7 H %
(1.7-9.3)
PT 15.0 H Sec
(11.4-14.6)
Sodium 132 L mmol/L
(135-145)
Chloride 97 L mmol/L
(98-107)
BUN 26 H mg/dl
(9-20)
Glucose 124 H mg/dl
(70-99)
07/16/25 10:11
07/16/25 10:11
Vital Signs
Initial and Last Documented VS:
Initial Vital Signs
Temp Pulse Resp BP Pulse Ox
37.1 C 130 18 124/88 94
07/16/25 09:44 07/16/25 09:44 07/16/25 09:44 07/16/25 09:44 07/16/25 09:44
Last Documented Vital Signs
Temp Pulse Resp BP Pulse Ox
36.8 C 81 22 133/84 92
07/16/25 14:27 07/16/25 15:00 07/16/25 15:00 07/16/25 14:00 07/16/25 14:30
<Deja Zambrano PA-C - Last Filed: 07/16/25 15:19>
MDM/Problems Addressed
Differential Diagnosis Includes:
see MDM
MDM/Problems Addressed:
Note:
CHIEF COMPLAINT(S)
Facial swelling and dental pain.
HISTORY OF PRESENT ILLNESS
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 He describes notable
pain stemming from the upper left molars, suggesting an underlying dental infection. The patient notes that the swelling has become progressively worse, and he has experienced pain exacerbated by chewing and consuming cold beverages. He reports a
recent episode of fever, which he managed with a tylenol/motrin. he patient reported difficulty swallowing and was noted to be somewhat disoriented by his caregiver, indicating possible changes in his mental status. His caregiver further confirmed
that the swelling worsened today.
no DANA inhibitors
SOCIAL HISTORY
The patient has a history of alcohol use but states he ceased drinking approximately 10 years ago.
MEDICATIONS
The patient is currently taking medication for seizures.
PHYSICAL EXAM
GENERAL: Alert , ill appearing
EYE: pupils equal and reactive
NECK: firm swelling L mandible region and submandibular as well as submental region with erythema
ENT: b/l TM s clear, pharynx erythematous but no tonsillar hypertrophy or exudates
TRISMUS PRESENT; VERY POOR DENTITION GLOBALLY
NO OBVIOUS PERIAPLICAL SWELLING
SUBLINGUAL SPACE IS SOFT
NO TONGUE ELEVATOIN
NO OBVIOUS PAROTID SWELLING
VERY SWOLLEN L MANDIBLE
CARDIAC: Regular rate and rhythm, no edema
LUNGS: Clear breath sounds bilaterally, no acute respiratory distress, no wheezes/rales/rhonchi, no cough
ABDOMEN: Soft, without focal tenderness, no r/g, no cvat, normal bowel sounds
NEUROLOGICAL: Alert and oriented, no focal neuro deficits
SKIN: Warm and dry, skin intact.
MUSCULOSKELETAL: No edema, well perfused.
PSYCH: Normal and appropriate interaction.
PROBLEM LIST
Acute:
- Facial swelling
- Dental pain suggesting an abscess with associated cellulitis
- Disorientation
PLAN
The patient will require hospitalization for the management of what appears to be an abscess and cellulitis resulting from a dental infection. Transfer to a hospital with oral surgical capabilities is recommended due to the potential seriousness of
the condition, including the risk of airway compromise. A computed tomography (CAT scan) of the area will be performed to assess the extent of the infection. Discussion with the patient indicated a preference for transfer to a hospital where his
specialists, including a neurologist, are located, specifically [place].
DIFFERENTIAL DIAGNOSIS
The Differential Diagnosis includes, in no particular order and is not limited to:
1. Dental abscess
2. Cellulitis
3. Ludwigs angina
4. Maxillary sinusitis
5. Gingivitis
6. Temporomandibular joint disorder
7. Parotid gland infection
8. Trigeminal neuralgia
9. Osteomyelitis of the jaw
10. Viral infection (such as mumps)
59 y/o m
poor historian
h/o wernicke korsekoff
[employer] shunt
days of L facial swelling progressed significatnly today
tachy, initially tempreporetd normal
for me 102.7
pt has trismus, facial swelling, submental and submandibular swelling with celluitis
concerning for martinas
i spoke with dr. samson wojae will review imaging to determine if pt can go to OR here or should be transferred
ct findings d/w OMFS attending who will take pt to OR
recommended unasyn
admit hosptialist.
airway patent
<Deja Zambrano PA-C - Last Filed: 08/26/25 15:19>
*Pulse Oximetry
SaO2: 95
Oxygen Mode of Delivery: Room air
Patient hypoxic: no (94)
*Critical Care Note
Total Time (30-74mins, 75-104mins- exclusive of procedures): Not Applicable
ED Attending Note
<Deja Zambrano PA-C - Last Filed: 07/16/25 15:19>
-
Portions of this chart may have been created with voice recognition software.� Occasional wrong word or��sound alike� substitutions may have occurred due to the inherent limitations of voice recognition software.
<Rubén Gonzalez MD - Last Filed: 07/16/25 15:04>
ED Attending Note
Patient seen and examined by attending physician: Yes
ED Attending Note:
Patient presents ED secondary to worsening left facial pain with swelling over the past 3 days. Denies fever or chills. Denies nausea or vomiting. Denies difficulty with swallowing. Denies shortness of breath. Denies trauma. Denies previous
history of similar symptoms. Denies nausea or vomiting. Denies recent illness. Patient does have history of previous alcohol abuse, but states that he has not any alcohol for over 2 years. In addition, patient has not seen dentist for a long
period of time.
Physical Exam
General: mild distress. febrile. tachycardic
Head: nc/at. eomi
Neck: supple. normal range of motion. mild left facial/neck swelling with erythema noted
Heart: tachycardic, no murmur. equal radial pulses.
Lungs: no acute respiratory distress. clear bilaterally
Abdomen: normal bowel sounds. not tender.
Neuro: alert and oriented x 3. no focal neurological deficits
Skin: no rash
Psychiatric: well kept. interactive and cooperative
Extremities: no edema. no calf tenderness.
History, exam, and CT neck consistent with abscess, without airway compromise. Patient evaluated in ED by OM, Dr. Samson. Patient will be admitted for further evaluation and treatment. IV antibiotics ordered.
Blood culture pending.
Discharge Plan
Departure
Patient Disposition: Admit
Date of Disposition: 07/16/25
Time of Disposition: 12:46
Admit to: IMU
Presentation/result/management discussed w/ accepting MD/DO: Hospitalist
Condition: Fair
Covid-19: Not Applicable
Discharge Problem:
Abscess, dental, Cellulitis of face
Prescriptions:
No Action
vitamin B complex Tablet Extended Release
1 tab PO DAILY
thiamine HCl (vitamin B1) 100 mg Tablet
100 mg PO DAILY
lacosamide 150 mg tablet
300 mg PO BID
clobazam 10 mg tablet
15 mg PO TID
valproic acid 250 mg capsule
500 mg PO BID Qty: 60 0RF
acetaminophen 325 mg Tablet
325 mg PO Q4HPRN PRN (Reason: mild pain)
folic acid 1 mg Tablet
1 mg PO DAILY
levetiracetam [Keppra] 250 mg Tablet
250 mg PO BID
Referrals:
Caprice Mc DO [Family Provider, Family Practice]
Interventions
Interventions:
*Risk Screen - Suicide Last Done: 07/16/25 09:44
ED- Neurological Assessment Last Done: 07/16/25 10:29
ED-Skin Assessment Last Done: 07/16/25 10:29
Discharge Date and Time
Print Language: BELGIAN
[2025-07-16 10:52] LABS: ALT (SGPT) 30 U/L (0-50); AST (SGOT) 26 U/L (17-59); Albumin 4.3 g/dl (3.5-5.0); Alkaline Phosphatase 70 U/L (38-126); Blood Urea Nitrogen 26 mg/dl (9-20); Calcium 9.2 mg/dl (8.4-10.2); Carbon Dioxide 26 mmol/L (22-30); Chloride 97 mmol/L (98-107); Estimated Creatinine Clearance 90 ml/min; Glucose 124 mg/dl (70-99); Potassium 4.9 mmol/L (3.5-5.1); Sodium 132 mmol/L (135-145); Total Protein 7.6 g/dl (6.3-8.2); eGFR > 60.00
[2025-07-16 10:53] LABS: INR 1.15; PT 15.0 Sec (11.4-14.6)
[2025-07-16 10:54] LABS: APTT 30.6 Sec (23.4-35.0)
[2025-07-16 11:06] LABS: Hematocrit 38.1 % (39.0-52.0); Hemoglobin 13.1 g/dL (13.0-18.0); Mean Corp Hgb Conc. 34.4 g/dL (33.0-37.0); Mean Corpuscular Volume 85.4 fL (80.0-94.0); Nucleated Red Blood Cells % 0 % (-); Platelet Count 199 10^3/uL (130-400); Red Cell Dist. Width 13.4 % (11.5-14.5)
--- NOTE | 2025-07-16 12:48 | CON.ORS ---
Consultation - Oral Surgery
Subjective
59 year old male with past medical history of HTN, wernicke-korsakoff syndrome, epilepsy, anxiety/depression, alcoholic hepatitis presenting to the ED with left facial swelling that has been present for a few days. He reports that it has been
worsening. He had Augmentin at home and has been taking it for the last 3 days. No nausea, vomiting, fever or chills.
Past Medical History
Past Medical History: HTN, Seizures and Other (Wernicke-korsakoff syndrome, epilepsy, alcoholic hepatitis)
Past Surgical History: Other (REFINISH TECHNICIAN shunt)
Family History: Not Pertinent
Alcohol: Former
Drug: None
Tobacco: Non-smoker
Medications / Allergies
Allergies
Allergy/AdvReac Type Severity Reaction Status Date / Time
No Known Allergies Allergy Verified 07/16/25 09:44
Active Medications
Generic Name Dose Route Start Last Admin
Trade Name Freq PRN Reason Stop Dose Admin
Ampicillin Sodium/Sulbactam 120 mls @ 240 mls/hr 07/16/25 12:46
Sodium 3 gm/ Sodium Chloride IV 07/16/25 13:15
NOW STA
Review of Systems
Constitutional: Reports No Symptoms
Eyes: Reports No Symptoms
ENT: Reports Tooth Pain and Other (Facial swelling and pain)
Cardiovascular: Reports No Symptoms
Respiratory: Reports No Symptoms
Gastrointestinal: Reports No Symptoms
Vital Signs
Temp Pulse Resp BP Pulse Ox
37.1 C 100 20 111/74 95
07/16/25 11:35 07/16/25 11:35 07/16/25 11:35 07/16/25 11:35 07/16/25 11:35
Physical Exam
General: Awake, Alert and Not in Acute Distress
Cardiac: Regular Rate
Extra-oral Exam: Other (Left facial swelling submandibularly and submentally, KAMAR WNL)
Intra-oral Exam: Other (Poor dentition, left vestibular swelling, no purulence draining, no FOM swelling)
CT Results
There is a hypodense mildly rim-enhancing fluid collection along the left mandibular body suggestive of an abscess. This courses along the anterior inferior aspect. It measures approximately 2.0 x 0.7 x 1.8 cm. There is no associated bony
destruction. There is a large amount of surrounding increased density to the subcutaneous tissues consistent with inflammation. There is no subcutaneous emphysema.
There is mild mass effect along the left lateral oropharynx but no significant airway narrowing.
There is dental caries involving the lateral half of the left first mandibular molar tooth.
There is a left submental lymph node measuring 1.3 x 0.9 cm.
The salivary glands are within normal limits. The thyroid gland is unremarkable. The imaged lungs are clear. Enhanced brain parenchyma is unremarkable.
The imaged paranasal sinuses show complete opacification of the right maxillary sinus and minimal mucosal thickening in the left maxillary sinus.
There is severe disc space narrowing at C5/C6 and C6/C7. There is moderate narrowing at C7/T1 and visualized levels of the upper thoracic spine. There is a less than grade 1 anterolisthesis of C3-4 on C5 and retrolisthesis of C5 on C6 and C6 on C7
Assessment / Plan
59 year old male with past medical history of HTN, wernicke-korsakoff syndrome presenting to the ED with left facial swelling consistent with an odontogenic infection. Based on physical and radiographic examination, I have recommended incision and
drainage of left submandibular infection and extraction of associated teeth #19, 20. We have discussed all risks, benefits, complications and alternatives including but not limited to bleeding, pain, persistent infection, swelling, temporary or
permanent damage to inferior alveolar nerve, temporary of permanent damage to the facial nerve. Patient is aware and understands all risks and complications.
- NPO for OR
- Unasyn
- Pain management
Data Reviewed
CT Scan: Image personally visualized and interpreted and Report Reviewed by me
Labs: Labs Reviewed by me
--- NOTE | 2025-07-16 12:52 | HPS.HSE ---
Addendum entered and electronically signed by Vickey Smith MD 07/16/25 14:01:
This is an addendum to the H&P written by Marifer Jack on 07/16/2025. �Patient seen and examined independently with PA.
59-year-old male past medical history of alcohol use disorder, Warnicke Korsakoff syndrome, epilepsy, normal pressure hydrocephalus s/p HOTEL ATTENDANT shunt, parafalcine meningioma, history of subdural hematoma, hypertension, anxiety/depression, alcoholic
hepatitis, peptic ulcer disease, presenting with facial swelling.
Vital signs show fever of 102.8. �Tachycardia up to 119.
Labs show leukocytosis of 13. �CT neck shows abscess formation severe inflammation around the left mandible with large amount of subcutaneous tissue swelling without subcutaneous emphysema. �There are dental caries.
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 �Blood cultures, n.p.o., IV fluids, Unasyn, oral surgeon consulted and plan for OR tonight.
Original Note:
Family Physician
-
Family Physician: Cparice Mc DO
Chief Complaint
-
Facial Swelling
History of Present Illness
Patient is a 59 y/o male past medical history of alcohol use disorder, Wernicke-Korsakoff syndrome, subdural hematoma, seizure disorder, and NPH s/p HOTEL ATTENDANT shunt who presents with increased left facial swelling and fever. Patient reports intermittent
left tooth pain for the last few months which has been worse over the past few weeks. Over the last few days he has developing worsening swelling of the left face now extending to involve the lip. He reports associated fevers for the last few
days. He states he has not seen a dentist in many years.
Medical History
Past Medical History
Past Medical History: Reports Other
Additional Past Medical History:
Alcohol Use Disorder
Wernicke-Korsakoff Syndrome
Seizure Disorder
Subdural Hematoma
NPH
Hypertension
GERD / PUD
Thoracic Aortic Aneurysm
Past Surgical History: Reports Other
Additional Past Surgical History:
HOTEL ATTENDANT Shunt
Social History
Alcohol: Former (Patient states that he has not had any alcohol since March 2023.)
Family History
Family History: Not pertinent
Allergies / Home Medications
Allergies reflects when Allergies were last updated in [employer].
Home Medications with original date entered in [employer]
Allergy/Medication List:
Allergies
Allergy/AdvReac Type Severity Reaction Status Date / Time
No Known Allergies Allergy Verified 07/16/25 09:44
Home Medications
clobazam 10 mg tablet 15 mg PO TID Seizures 10/04/23
lacosamide 150 mg tablet 300 mg PO BID Seizures 10/04/23
thiamine HCl (vitamin B1) 100 mg tablet 100 mg PO DAILY Supplement 10/04/23
valproic acid 250 mg capsule 500 mg (2 x 250 mg) PO BID #60 caps 10/04/23
vitamin B complex 1 tab PO DAILY Supplement 10/04/23
acetaminophen 325 mg tablet 325 mg PO Q4HPRN PRN mild pain 06/22/24
folic acid 1 mg tablet 1 mg PO DAILY Supplement 06/22/24
levetiracetam 250 mg tablet (Keppra) 250 mg PO BID 07/16/25
Review of Systems
-
A 12 point ROS was completed and negative except as noted: Yes
Constitutional: Reports Fever
Respiratory: Denies Cough or Trouble Breathing
Cardiac: Reports Chest Pain and Palpitations
Abdomen/GI: Reports Abdominal Pain, Nausea, Vomiting and Diarrhea
Physical Exam
Vital Signs
Vital Signs
Temp Pulse Resp BP Pulse Ox
98.7 F 100 20 111/74 95
07/16/25 11:35 07/16/25 11:35 07/16/25 11:35 07/16/25 11:35 07/16/25 11:35
Physical Exam
General: Comfortable and Conversant (Able to speak in full sentences )
HEENT: NormoCephalic, Anicteric and Other (Significant swelling of the left cheek, extending down to the jaw line and across the left lower lip)
Respiratory: Clear and Non Labored Respirations
Cardiac: S1/S2 and Regular Rhythm
GI: Soft and Non Tender
Rectal: Deferred by Provider
Musculoskeletal: No Clubbing and No Cyanosis
Skin: Warm and Dry
Neuro: Awake, Alert and No Motor Deficits
Psych: Calm
Laboratory Results
-
07/16/25 10:11
07/16/25 10:11
Laboratory Results
PT 15.0 Sec (11.4-14.6) H 07/16/25 10:11
INR 1.15 07/16/25 10:11
APTT 30.6 Sec (23.4-35.0) 07/16/25 10:11
Lactic Acid Cancelled 07/16/25 14:15
Total Bilirubin 0.7 mg/dl (0.2-1.3) 07/16/25 10:11
AST 26 U/L (17-59) 07/16/25 10:11
ALT 30 U/L (0-50) 07/16/25 10:11
Alkaline Phosphatase 70 U/L (38-126) 07/16/25 10:[address]:
Findings suggesting abscess formation and severe inflammation about the left mandible as described above. No associated bony destruction. Mild mass effect along the left oropharynx but no significant airway narrowing
Mild left submental lymphadenopathy.
Dental caries
Data Reviewed
-
CT Scan: Report Reviewed by me
Lab Data: Labs Reviewed by me
Old Records: Reviewed
Impression/Plan
-
Sepsis secondary to Dental Abscess
-Reviewed with Oral Surgery - Plan for OR today for incision and drainage
-Continue Unasyn
-Await blood cultures
Seizure Disorder
-Continue clobazam, lacosamide, levetiracetam and valproic acid
Wernicke-Korsakoff Syndrome
-Continue thiamine and folic acid
Hx Alcohol Use Disorder - Patient sober since 2022
Hx Subdural Hematoma
Hx NPH s/p HOTEL ATTENDANT Shunt 2023
DVT proph: Lovenox
Code Status: Full Code
[2025-07-16] MEDS: UNASYN IV ×2 (13:22→22:14)
--- NOTE | 2025-07-16 21:09 | OR.RPT ---
Operative Report
Operative Report
Patient Name: ORION GELLER
: 1965
Unit Number: [id number]
Age: 59/Gender: M
Patient
Primary Surgeon:� Adeline Bee
Assisting Surgeon:� None
Pre-op Diagnosis:� Left mandibular abscess
Post-op Diagnosis: � Left mandibular abscess
Anesthesia Type:� General
Procedure Performed:� Incision and drainage of left submandibular abscess, extraction of teeth #19, 20, 21
The patient was prepped and draped in a standard sterile fashion with betadine on the skin. 6.8 cc 2% lidocaine with 1:100,000 epinephrine injected as MANINDER, lingual, buccal blocks. A throat pack was placed. A 2cm left submandibular incision was
created through the skin and subcutaneous tissue 2cm below the inferior border of the mandible. A hemostat was then used to bluntly dissect to the inferior border of the mandible. Approximately 3 cc of purulence was expressed. Cultures were taken. A
#15 blade was used to make a sulcular incision around teeth #19-21 and full thickness mucoperiosteal flap was elevated. Teeth #19, 20, 21 were elevated and extracted with forceps. A periosteal elevator was used to bluntly dissect buccally and
lingually along the mandible. One viky drain was placed through the submandibular incision along the medial aspect of mandible and a second drain was placed along the lateral aspect of the mandible. 3-0 chromic gut tacking sutures were placed
intra-orally. The drains were secured extra-orally with 3-0 silk sutures. At the end of the case, the oral cavity was inspected and irrigated and found to be free of foreign debris. The throat pack was removed and care of the patient was returned to
the Department of Anesthesia. The patient was successfully extubated and transferred to the Post-Anesthesia Care Unit.
Specimen / Cultures:�Left mandibular abscess culture
Estimated Blood Loss:� 10cc
Complications:� None
[2025-07-16] MEDS: LOVENOX SC (22:35)
[2025-07-16] MEDS: ONFI 15 MG PO (22:38)
[2025-07-16] MEDS: DEPAKENE 500 MG PO (22:39)
[2025-07-16] MEDS: KEPPRA 250 MG PO (22:39)
[2025-07-16] MEDS: VIMPAT 300 MG PO (22:40)
[2025-07-16] MEDS: ONFI PO (22:57)
[2025-07-17] VITALS (9 sets, daily range): BP systolic 109–166; BP diastolic 70–96
--- NOTE | 2025-07-17 00:56 | PTCARENOTE ---
Pt received from daysmoft RN. Pt on floor for several minutes before transfer to OR. RN transferred Pt to OR. Pt underwent left IND mandible abscess surgery. RN obtained Pt from PACU. Pt transferred from PACU to [facility]. Admission completed once Pt
returned to [facility].
[2025-07-17] MEDS: TYLENOL 650 MG PO (02:27)
[2025-07-17] MEDS: UNASYN IV ×4 (02:28→19:54)
[2025-07-17 06:32] LABS: Hematocrit 39.5 % (39.0-52.0); Hemoglobin 13.4 g/dL (13.0-18.0); Mean Corp Hgb Conc. 33.9 g/dL (33.0-37.0); Mean Corpuscular Volume 86.1 fL (80.0-94.0); Platelet Count 209 10^3/uL (130-400); Red Cell Dist. Width 13.5 % (11.5-14.5)
[2025-07-17] MEDS: VIMPAT 300 MG PO ×2 (08:05→19:53)
[2025-07-17] MEDS: FOLVITE 1 MG PO (08:06)
[2025-07-17] MEDS: KEPPRA 250 MG PO ×2 (08:06→19:53)
[2025-07-17] MEDS: ONFI 15 MG PO ×3 (08:06→22:14)
[2025-07-17] MEDS: B COMPLEX w/VITAMIN C 1 CAPLET PO (08:06)
[2025-07-17] MEDS: VITAMIN B1 100 MG PO (08:07)
[2025-07-17] MEDS: DEPAKENE 500 MG PO ×2 (08:20→19:52)
--- NOTE | 2025-07-17 09:06 | W.PN.OMFS ---
Today's Communication
-
- Continue Unasyn, following cultures
- Peridex rinses BID and continue oral hygiene
- Liquid diet, can be advanced as tolerated
- Following drain output
Assessment / Plan
-
59M POD#1 s/p Incision and drainage of left submandibular abscess, extraction of teeth #19, 20, 21 with some surrounding indurated swelling and no purulent drainage. Plan to continue to follow progress on Unasyn and monitor drain output
Subjective Data
-
59M POD#1 s/p Incision and drainage of left submandibular abscess, extraction of teeth #19, 20, 21. He reports his pain is 4/10. He does report some numbness of his left lower lip. He feels like he is having difficulty opening his mouth wide
Objective Data
-
Vitals, I&O and Lab Results:
Vital Signs
Temp Pulse Resp BP Pulse Ox
36.6 C 75 16 117/74 97
07/17/25 07:30 07/17/25 07:30 07/17/25 07:30 07/17/25 07:30 07/17/25 07:30
Intake and Output
07/16/25 07/17/25 07/18/25
06:59 06:59 06:59
Intake Total 270 / 270
Output Total 400 / 400
Balance -130 / -130
Intake:
Oral fluids 120 / 120
IV fluids (Total) 150 / 150
normosol 150 / 150
Output:
Urine, Voided 400 / 400
Other:
Number of approximated MODERATE 5
amounts of urine
Lab Data
07/17/25 05:50
Plt Count 209 10^3/uL (130-400) 07/17/25 05:50
Microbiology
07/16/25 20:20 Anaerobic Culture - Pending
Abscess
07/16/25 20:20 Wound Culture - Pending
Abscess Gram Stain - Pending
07/16/25 11:32 Blood Culture - Pending
Blood/Venous
07/16/25 10:11 Blood Culture - Pending
Blood/Venous
Physical Exam
-
E/O: Swelling of the left lower lip, submandibular, and submental regions. Induration of the submental region. Overlying erythema. Jared drains in place with serosanguinous output, no purulent drainage
I/O: Soft swelling of the left mandibular vestibule. Pratt drains in place. No purulent drainage. FOM soft
Data Reviewed
-
Labs: Report reviewed by me
[2025-07-17 09:09] LABS: Blood Urea Nitrogen 24 mg/dl (9-20); Calcium 8.4 mg/dl (8.4-10.2); Carbon Dioxide 26 mmol/L (22-30); Chloride 100 mmol/L (98-107); Estimated Creatinine Clearance 109 ml/min; Glucose 139 mg/dl (70-99); Potassium 5.1 mmol/L (3.5-5.1); Sodium 134 mmol/L (135-145); eGFR > 60.00
--- NOTE | 2025-07-17 09:36 | W.PN.HOSP.TC ---
Today's Communication/Plan
-
see bold
Assessment / Plan
Assessment / Plan
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
hepatitis, peptic ulcer disease, presenting with facial swelling. Vital signs show fever of 102.8. �Tachycardia up to 119. Labs show leukocytosis of 13. �CT neck shows abscess formation severe inflammation around the left mandible with large amount
of subcutaneous tissue swelling without subcutaneous emphysema. �There are dental caries. 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 �Blood cultures, n.p.o., IV fluids, Unasyn, oral surgeon
consulted and plan for OR tonight.
Sepsis secondary to Dental Abscess
-Appreciate oral surgery, s/p I & D of left submandibular abscess, extraction of teeth #19, 20, 21 on 07/17
-Continue Unasyn D2, pain meds, GS w/ GPC, follow-up on ID and sensitivities, blood cultures negative to date
-Tolerating clear liquids, will advance to full liquids
-Trend fever and white count
Seizure Disorder
-Continue clobazam, lacosamide, levetiracetam and valproic acid
Wernicke-Korsakoff Syndrome
-Continue thiamine and folic acid
Obesity due to excess calories
- Affects all aspects of care
Hx Alcohol Use Disorder - Patient sober since 2022
Hx Subdural Hematoma
Hx NPH s/p LABORER/KEY MAN Shunt 2023
DVT proph: Lovenox
Code Status: Full Code
Total time spent to see the patient on the floor, examine the patient, review data and lab results, discuss treatment plan with patient, nursing staff around 45 minutes.
Physical Exam
General: Obese, no acute distress
HEENT: Normocephalic
Swelling of the left lower lip, submandibular, and submental regions. Induration of the submental region. Overlying erythema. Jared drains in place with serosanguinous output, no purulent drainage
Respiratory: Clear to Auscultation bilaterally
Cardiac: Normal S1/S2, Regular Rate and Rhythm
GI: Soft, Nontender, Nondistended, Normal Bowel Sounds
Extremities: No Clubbing, Cyanosis, or Edema
Neuro: Nonfocal/Grossly Intact
Anticipated Discharge: 24 - 48 hours
Subjective/Interval History
-
Date of Service: July 17, 2025
Patient reports his pain is 4 out of 10 in intensity. He continues to have dysphagia, dysarthria. No nausea or vomiting. No chest pain, no shortness of breath. Fevers improved.
Objective Data
-
Labs:
Laboratory Results
07/17/25 07/17/25
05:50 07:57
WBC 12.5 H
Hgb 13.4
Hct 39.5
Plt Count 209
Sodium Cancelled 134 L
Potassium Cancelled 5.1
Chloride Cancelled 100
Carbon Dioxide Cancelled 26
BUN Cancelled 24 H
Creatinine Cancelled 0.8
Glucose Cancelled 139 H
Calcium Cancelled 8.4
Vital Signs:
Vital Signs
Temp Pulse Resp BP Pulse Ox
97.8 F 75 16 117/74 97
07/17/25 07:30 07/17/25 07:30 07/17/25 07:30 07/17/25 07:30 07/17/25 07:30
I&O
07/16/25 07/17/25 07/18/25
06:59 06:59 06:59
Intake Total 270 / 270
Output Total 400 / 400
Balance -130 / -130
--- NOTE | 2025-07-17 15:08 | PTCARENOTE ---
pt weaned to RA 96% OOB to chair. drainage from viky site continues, pain managed. CB in reach
[2025-07-17] MEDS: LOVENOX 40 MG SC (17:35)
[2025-07-17] MEDS: NSS 1000 IV (17:38)
[2025-07-17] MEDS: SENOKOT-S 2 TABLET PO (19:53)
[2025-07-18] VITALS (14 sets, daily range): BP systolic 104–147; BP diastolic 71–95
[2025-07-18] MEDS: UNASYN IV ×3 (01:54→13:38)
[2025-07-18 07:16] LABS: Blood Urea Nitrogen 29 mg/dl (9-20); Calcium 8.5 mg/dl (8.4-10.2); Carbon Dioxide 28 mmol/L (22-30); Chloride 102 mmol/L (98-107); Estimated Creatinine Clearance 109 ml/min; Glucose 103 mg/dl (70-99); Hematocrit 35.2 % (39.0-52.0); Hemoglobin 11.6 g/dL (13.0-18.0); Magnesium 2.8 mg/dl (1.6-2.3); Mean Corp Hgb Conc. 33.0 g/dL (33.0-37.0); Mean Corpuscular Volume 87.8 fL (80.0-94.0); Platelet Count 253 10^3/uL (130-400); Potassium 4.7 mmol/L (3.5-5.1); Red Cell Dist. Width 13.8 % (11.5-14.5); Sodium 136 mmol/L (135-145); eGFR > 60.00
[2025-07-18] MEDS: SENOKOT-S 2 TABLET PO ×2 (08:02→20:23)
[2025-07-18] MEDS: ONFI 15 MG PO ×2 (08:02→22:59)
[2025-07-18] MEDS: FOLVITE 1 MG PO (08:02)
[2025-07-18] MEDS: DEPAKENE 500 MG PO ×2 (08:02→20:22)
[2025-07-18] MEDS: VITAMIN B1 100 MG PO (08:03)
[2025-07-18] MEDS: KEPPRA 250 MG PO ×2 (08:03→20:22)
[2025-07-18] MEDS: B COMPLEX w/VITAMIN C 1 CAPLET PO (08:21)
[2025-07-18] MEDS: VIMPAT 300 MG PO ×2 (08:21→20:23)
[2025-07-18] MEDS: ROXICODONE 10 MG PO ×2 (08:38→23:16)
--- NOTE | 2025-07-18 08:40 | PTCARENOTE ---
Roxicodone given for 8/10 left mouth pain after physician removed sutures and viky drains.
--- NOTE | 2025-07-18 08:42 | PTCARENOTE ---
Pateint requesting food instead of liquids. Oral surgeon at bedside and said, 'Patient can eat whatever he tolerates.' Order for minced and moist placed for breakfast, patient made aware of diet change.
--- NOTE | 2025-07-18 09:10 | W.PN.OMFS ---
Today's Communication
-
- Continue antibiotics, following cultures
- Peridex rinses BID and continue oral hygiene
- NPO for possible repeat I&D
Assessment / Plan
-
59M POD#2 s/p Incision and drainage of left submandibular abscess, extraction of teeth #19, 20, 21 with some surrounding indurated swelling and no purulent drainage. Plan for a repeat CT scan to evaluate for remaining abscess as he is not
progressing as would be expected at this point. Barnhart drains removed
Subjective Data
-
59M 2 days s/p Incision and drainage of left submandibular abscess, extraction of teeth #19, 20, 21. He reports that his pain is 3/10 but worse when touching the site
Objective Data
-
Vitals, I&O and Lab Results:
Vital Signs
Temp Pulse Resp BP Pulse Ox
36.7 C 71 17 123/87 93
07/18/25 07:47 07/18/25 07:47 07/18/25 07:47 07/18/25 07:47 07/18/25 07:47
Intake and Output
07/17/25 07/18/25 07/19/25
06:59 06:59 06:59
Intake Total 270 / 270 720 / 720 360 / 360
Output Total 400 / 400
Balance -130 / -130 720 / 720 360 / 360
Intake:
Oral fluids 120 / 120 720 / 720 360 / 360
IV fluids (Total) 150 / 150
normosol 150 / 150
Output:
Urine, Voided 400 / 400
Other:
Number of approximated MODERATE 5
amounts of urine
Number of approximated LARGE 1
amounts of urine
How many times incontinent 2
SATURATED amount urine
Lab Data
07/18/25 06:12
07/18/25 06:12
Plt Count 253 10^3/uL (130-400) D 07/18/25 06:12
Microbiology
07/16/25 11:32 Blood Culture - Preliminary
Blood/Venous No Growth in 24 hours- Final report to follow
07/16/25 10:11 Blood Culture - Preliminary
Blood/Venous No Growth in 24 hours- Final report to follow
07/16/25 20:20 Wound Culture - Pending
Abscess Gram Stain - Preliminary
Physical Exam
-
E/O: Swelling of the left lower lip, submandibular, and submental regions. Induration of the submental region. Overlying erythema. Jared drains in place with minimal serosanguineous output
I/O: Indurated swelling of the left mandibular vestibule. Barnhart drains in place. No purulent drainage. FOM soft
Data Reviewed
-
Labs: Report reviewed by me
--- NOTE | 2025-07-18 09:15 | W.PN.HOSP.TC ---
Addendum entered and electronically signed by Alan Davis MD 07/18/25 14:09:
Change abx to vanc/zosyn.
Original Note:
Today's Communication/Plan
-
N.p.o. for repeat I&D with oral surgery today
Assessment / Plan
Assessment / Plan
59-year-old male past medical history of alcohol use disorder, Warnicke Korsakoff syndrome, epilepsy, normal pressure hydrocephalus s/p STATIONARY BOILER FIREMAN shunt, parafalcine meningioma, history of subdural hematoma, hypertension, anxiety/depression, alcoholic
hepatitis, peptic ulcer disease, presenting with facial swelling. Vital signs show fever of 102.8. �Tachycardia up to 119. Labs show leukocytosis of 13. �CT neck shows abscess formation severe inflammation around the left mandible with large amount
of subcutaneous tissue swelling without subcutaneous emphysema. �There are dental caries. 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 �Blood cultures, n.p.o., IV fluids, Unasyn, oral surgeon
consulted and plan for OR tonight.
Sepsis secondary to Dental Abscess
-Appreciate oral surgery, s/p I & D of left submandibular abscess, extraction of teeth #19, 20, 21 on 07/17
-Continue Unasyn D3, pain meds, GS w/ GPC, follow-up on ID and sensitivities, blood cultures negative to date
- repeat CT shows fluid collection concerning for abscess
-Discussed w/ oral surgery, keep n.p.o. for repeat I&D today
-Trend fever and white count
Seizure Disorder
-Continue clobazam, lacosamide, levetiracetam and valproic acid
Wernicke-Korsakoff Syndrome
-Continue thiamine and folic acid
Obesity due to excess calories
- Affects all aspects of care
Hx Alcohol Use Disorder - Patient sober since 2022
Hx Subdural Hematoma
Hx NPH s/p STATIONARY BOILER FIREMAN Shunt 2023
DVT proph: Lovenox
Code Status: Full Code
Total time spent to see the patient on the floor, examine the patient, review data and lab results, discuss treatment plan with patient, nursing staff around 50 minutes.
Physical Exam
General: Obese, no acute distress
HEENT: Normocephalic
Swelling of the left lower lip, submandibular, and submental regions. Induration of the submental region. Overlying erythema.
Respiratory: Clear to Auscultation bilaterally
Cardiac: Normal S1/S2, Regular Rate and Rhythm
GI: Soft, Nontender, Nondistended, Normal Bowel Sounds
Extremities: No Clubbing, Cyanosis, or Edema
Neuro: Nonfocal/Grossly Intact
Anticipated Discharge: > 48 hours
Subjective/Interval History
-
Date of Service: July 18, 2025
Patient complains of feeling hungry. He continues to have dysarthria, pain. He reports being short of breath at baseline, no change. No fever, no vomiting.
Objective Data
-
Labs:
Laboratory Results
07/18/25
06:12
WBC 8.7
Hgb 11.6 L
Hct 35.2 L
Plt Count 253 D
Sodium 136
Potassium 4.7
Chloride 102
Carbon Dioxide 28
BUN 29 H
Creatinine 0.8
Glucose 103 H
Calcium 8.5
Vital Signs:
Vital Signs
Temp Pulse Resp BP Pulse Ox
98.1 F 71 17 123/87 93
07/18/25 07:47 07/18/25 07:47 07/18/25 07:47 07/18/25 07:47 07/18/25 07:47
I&O
07/17/25 07/18/25 07/19/25
06:59 06:59 06:59
Intake Total 270 / 270 720 / 720 360 / 360
Output Total 400 / 400
Balance -130 / -130 720 / 720 360 / 360
--- NOTE | 2025-07-18 10:13 | PTCARENOTE ---
Patient ambulated to bathroom with walker and assist x1. Patient is unsteady and weak. Patient tolerated clear liquids and is now NPO for possible OR. patient made aware of plan of care. Patient needs frequent reinforcement, due to forgetfulness and
confusion with time. Patient tolerated sitting in chair for 3 hours, chair alarm placed, but no attempts were made to get out of chair. Patient used call campbell appropriately,
[2025-07-18] MEDS: NSS 1000 IV (13:34)
--- NOTE | 2025-07-18 14:27 | CM ---
CM met with patient and spoke with his caregiver/roommate Socorro by phone;
Luis Miguel is alert oriented however seems forgetful and responses are vague.
the patient resides with his roommate Socorro in a 3 story home with three steps to enter.
Socorro is his 24 hr private caregiver who assists him with meals and drives him to medical appointments.
Socorro works as an [employer] swing driver however says he is there with the patient most of the time and has flexibility with his work.
History of home care with [facility], SNF at [facility] and Acute rehab at [place]. Pt has advised pt does not need skilled PT services at this time.
Plan: Discharge to home when medically cleared. Socorro will transport home.
PCP- Caprice Mc
Pharmacy -[facility]
[2025-07-18] MEDS: ZOSYN 50 IV ×2 (15:06→20:24)
[2025-07-18] MEDS: ONFI PO (15:06)
--- NOTE | 2025-07-18 15:07 | PHA.VAN.IN ---
Assessment
- Assessment
Renal Function: Appears similar to baseline
Concomitant Antimicrobials: piperacillin/tazobactam
AUC Dosing Plan
- Dosing Variables
Dosing Weight (kg): 95
Dosing CrCl (ml/min): 109
Vd coefficient (L/kg): 0.7
- Empiric Dosing
Initial / Loading Dose: 2000mg - administration pending
Maintenance Regimen: Vanc 1250mg Q12H starting 07/19 600
Estimated AUC (mcg*h/mL): 425
Estimated Peak (mcg*h/mL): 27.7
Estimated Trough (mcg/ml): 10.2
Estimated Half Life (H): 7.3
- Monitoring
No levels ordered at this time: consider levels in next few days
Pharmacokinetics Vancomycin I
- -
Patient Age: 59
Patient Sex: Male
Vancomycin Day #: 1
Indication: Skin And Soft Tissue
Requesting Provider: Dr. Davis
Pertinent Antimicrobial Allergies:
NKDA
Height / Weight:
Height 5 ft 8 in
Actual Weight 95.311 kg
Pertinent Past Medical History: BMI ~32
- Vital Signs / Lab Results
Temp Pulse Resp BP Pulse Ox
97.8 F 90 17 120/73 92
07/18/25 10:46 07/18/25 10:46 07/18/25 10:46 07/18/25 10:46 07/18/25 10:46
Lab Results - Hematology
07/16/25 07/17/25 07/18/25
10:11 05:50 06:12
WBC 13.1 H 12.5 H 8.7
Lab Results - Chemistry
07/16/25 07/17/25 07/17/25
10:11 05:50 07:57
BUN 26 H Cancelled 24 H
Creatinine 1.0 Cancelled 0.8
Estimated Creat Clear 90 Cancelled 109
Albumin 4.3
07/18/25
06:12
BUN 29 H
Creatinine 0.8
Estimated Creat Clear 109
Albumin
07/16/25 07/16/25
10:11 14:15
Lactic Acid 1.1 Cancelled
Microbiology Results
07/16/25 11:32 Blood Culture - Preliminary
Blood/Venous No Growth in 48 hours- Final report to follow
07/16/25 20:20 Anaerobic Culture - Preliminary
Abscess Culture pending. Anaerobic cultures are examined after 3
days incubation. Additional information to follow.
07/16/25 20:20 Wound Culture - Preliminary
Abscess Gram Stain - Preliminary
07/16/25 10:11 Blood Culture - Preliminary
Blood/Venous No Growth in 48 hours- Final report to follow
--- NOTE | 2025-07-18 15:24 | W.PN.UPDATE ---
Update Note
Progress Note Update
CT images and report reviewed. There is a suggestion of a faint hypodense small fluid collection inferior to the anterior left mandibular body seen best on sagittal image #64 series 203. It measures roughly 1.8 x 1.6 x 1.3 cm. The previously seen
collection inferior to the left mandibular body is diminished.
Plan for repeat I&D today
[2025-07-18] MEDS: VANCOCIN 540 MG IV (15:35)
--- NOTE | 2025-07-18 16:15 | PTCARENOTE ---
Patient sent to OR at 1615. Felio infusing and sent with patient. TOBACCO PACKER made aware.
--- NOTE | 2025-07-18 17:50 | OR.RPT ---
Operative Report
Operative Report
Primary Surgeon:� Adeline Bee
Assisting Surgeon:� Eli Garner
Pre-op Diagnosis:� Left submandibular abscess
Post-op Diagnosis: � Left submandibular abscess
Anesthesia Type:� General
Procedure Performed:� Incision and drainage of left submandibular abscess
The patient was prepped and draped in a standard sterile fashion with betadine on the skin and Peridex intraorally. 5.4 cc 0.5% marcaine with 1:200,000 epinephrine injected as MANINDER, lingual, buccal blocks. A throat pack was placed. A 2cm left
submental incision was created through the skin and subcutaneous tissue 2cm below the inferior border of the mandible. A hemostat was then used to bluntly dissect to the inferior border of the mandible, passing along the medial and lateral aspects
of the mandible. Approximately 3 cc of purulence was expressed. Cultures were taken. A periosteal elevator was used to open the existing sulcular incision around sites #19-21. A periosteal elevator was used to bluntly dissect buccally and lingually
along the mandible. One viky drain was placed through the submental incision along the medial aspect of mandible and a second drain was placed through the same incision along the lateral aspect of the mandible. 3-0 chromic gut tacking suture was
placed intra-orally. The drains were secured extra-orally with 3-0 silk sutures. All sites were thoroughly irrigated with NSS. At the end of the case, the oral cavity was inspected and irrigated and found to be free of foreign debris. The throat
pack was removed and care of the patient was returned to the Department of Anesthesia. The patient was successfully extubated and transferred to the Post-Anesthesia Care Unit.
Specimen / Cultures:�Posterior incision
Estimated Blood Loss:� 10cc
Complications:� None
[2025-07-18] MEDS: DILAUDID 0.25 MG IV (18:18)
[2025-07-18] MEDS: LOVENOX SC (19:23)
[2025-07-18] MEDS: LOVENOX 40 MG SC (20:21)
[2025-07-19] MEDS: ZOSYN 50 IV ×4 (02:20→21:01)
[2025-07-19 03:00] VITALS: BP 110/67
[2025-07-19] MEDS: VANCOCIN 275 MG IV ×2 (05:49→17:37)
[2025-07-19 06:48] LABS: Hematocrit 32.0 % (39.0-52.0); Hemoglobin 10.6 g/dL (13.0-18.0); Mean Corp Hgb Conc. 33.1 g/dL (33.0-37.0); Mean Corpuscular Volume 87.7 fL (80.0-94.0); Platelet Count 280 10^3/uL (130-400); Red Cell Dist. Width 14.0 % (11.5-14.5)
[2025-07-19 07:26] VITALS: BP 121/72
--- NOTE | 2025-07-19 07:59 | W.PN.HOSP.TC ---
Today's Communication/Plan
-
see bold
Assessment / Plan
Assessment / Plan
59-year-old male past medical history of alcohol use disorder, Warnicke Korsakoff syndrome, epilepsy, normal pressure hydrocephalus s/p SYSTEMS SUPPORT OFFICER shunt, parafalcine meningioma, history of subdural hematoma, hypertension, anxiety/depression, alcoholic
hepatitis, peptic ulcer disease, presenting with facial swelling. Vital signs show fever of 102.8. �Tachycardia up to 119. Labs show leukocytosis of 13. �CT neck shows abscess formation severe inflammation around the left mandible with large amount
of subcutaneous tissue swelling without subcutaneous emphysema. �There are dental caries. 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 �Blood cultures, n.p.o., IV fluids, Unasyn, oral surgeon
consulted and plan for OR tonight.
Sepsis secondary to Dental Abscess
-Appreciate oral surgery, s/p I & D of left submandibular abscess, extraction of teeth #19, 20, 21 on 07/16
-Status post repeat I&D of left submandibular abscess 07/18
-07/16 GS w/ [facility], follow-up on ID and sensitivities, blood cultures negative to date
-07/18 GS w/ few WBC's, neg for organisms
-IV Unasyn changed to vancomycin and Zosyn 07/18
-Trend fever and white count
Seizure Disorder
-Continue clobazam, lacosamide, levetiracetam and valproic acid
Wernicke-Korsakoff Syndrome
-Continue thiamine and folic acid
Obesity due to excess calories
- Affects all aspects of care
Hx Alcohol Use Disorder - Patient sober since 2022
Hx Subdural Hematoma
Hx NPH s/p SYSTEMS SUPPORT OFFICER Shunt 2023
DVT proph: Lovenox
Code Status: Full Code
Total time spent to see the patient on the floor, examine the patient, review data and lab results, discuss treatment plan with patient, nursing staff around 40 minutes.
Physical Exam
General: Obese, no acute distress
HEENT: Normocephalic
Swelling of the left lower lip, submandibular, and submental regions. Induration of the submental region. Overlying erythema.
Respiratory: Clear to Auscultation bilaterally
Cardiac: Normal S1/S2, Regular Rate and Rhythm
GI: Soft, Nontender, Nondistended, Normal Bowel Sounds
Extremities: No Clubbing, Cyanosis, or Edema
Neuro: Nonfocal/Grossly Intact
Anticipated Discharge: 24 - 48 hours
Subjective/Interval History
-
Date of Service: July 19, 2025
Complaints of left submandibular pain, 8 out of 10 intensity. Denies chest pain, has chronic shortness of breath at baseline. No fever, no vomiting.
Objective Data
-
Labs:
Laboratory Results
07/19/25
06:06
WBC 7.9
Hgb 10.6 L
Hct 32.0 L
Plt Count 280
Vital Signs:
Vital Signs
Temp Pulse Resp BP Pulse Ox
97.9 F 66 16 121/72 95
07/19/25 07:26 07/19/25 07:26 07/19/25 07:26 07/19/25 07:26 07/19/25 07:26
I&O
07/18/25 07/19/25 07/20/25
06:59 06:59 06:59
Intake Total 720 / 720 1740 / 1740 480 / 480
Output Total 300 / 300 450 / 450
Balance 720 / 720 1440 / 1440
--- NOTE | 2025-07-19 08:22 | W.PN.OMFS ---
Today's Communication
-
- Continue antibiotics, following cultures
- Peridex rinses BID and continue oral hygiene
- Diet can be advanced as tolerated
- Following drain output
Assessment / Plan
-
59M 3 days s/p Incision and drainage of left submandibular abscess, extraction of teeth #19, 20, 21, 1 day s/p repeat left submandibular I&D with overall improvement in swelling and no purulent drainage. Plan to continue to follow progress and
monitor drain output
Subjective Data
-
59M 3 days s/p Incision and drainage of left submandibular abscess, extraction of teeth #19, 20, 21, 1 day s/p repeat left submandibular I&D. He is tolerating his diet. His pain is 8/10 right now but does improve with medication
Objective Data
-
Vitals, I&O and Lab Results:
Vital Signs
Temp Pulse Resp BP Pulse Ox
36.6 C 66 16 121/72 95
07/19/25 07:26 07/19/25 07:26 07/19/25 07:26 07/19/25 07:26 07/19/25 07:26
Intake and Output
07/18/25 07/19/25 07/20/25
06:59 06:59 06:59
Intake Total 720 / 720 1740 / 1740 480 / 480
Output Total 300 / 300 450 / 450
Balance 720 / 720 1440 / 1440 30 / 30
Intake:
Oral fluids 720 / 720 660 / 660 480 / 480
IV fluids (Total) 300 / 300
IV piggybacks 780 / 780
Output:
Urine, Voided 300 / 300 450 / 450
Other:
Number of approximated LARGE 1
amounts of urine
How many times incontinent 2 1
SATURATED amount urine
Lab Data
07/19/25 06:06
07/18/25 06:12
Plt Count 280 10^3/uL (130-400) 07/19/25 06:06
Microbiology
07/18/25 17:25 Wound Culture - Pending
Abscess Gram Stain - Preliminary
07/18/25 17:25 Anaerobic Culture - Pending
Abscess
07/16/25 11:32 Blood Culture - Preliminary
Blood/Venous No Growth in 48 hours- Final report to follow
07/16/25 20:20 Anaerobic Culture - Preliminary
Abscess Culture pending. Anaerobic cultures are examined after 3
days incubation. Additional information to follow.
07/16/25 20:20 Wound Culture - Preliminary
Abscess Gram Stain - Preliminary
07/16/25 10:11 Blood Culture - Preliminary
Blood/Venous No Growth in 48 hours- Final report to follow
Physical Exam
-
E/O: Soft submandibular and submental swelling. Slight buccal induration with overlying erythema only in the buccal region. [place] drains in place with serosanguinous output, no purulent drainage
I/O: Soft swelling of the left mandibular vestibule. [place] drains in place. No purulent drainage. FOM soft
Data Reviewed
-
Labs: Report reviewed by me
--- NOTE | 2025-07-19 09:02 | PHA.VAN.FU ---
Vancomycin Assessment / Plan
- Assessment
Renal Function: Stable
WBC's are: WNL
In the past 24 hrs, patient has been: Afebrile
Concomitant Antimicrobials: piperacillin/tazobactam
- Dosing Plan
Continue: Vanc 1250mg Q12H
- Monitoring Plan
No level(s) ordered at this time: consider levels in next few days
- Follow Up
Pharmacy will continue to follow.
Vancomycin Follow UP
- -
Patient Age: 59
Patient Sex: Male
Vancomycin Day #: 2
Indication: Skin And Soft Tissue
Requesting Provider: Dr. Davis
Pertinent Antimicrobial Allergies:
NKDA
Height / Weight:
Height 5 ft 8 in
Actual Weight 95.311 kg
Pertinent Past Medical History: BMI ~32
- Vital Signs / Lab Results
Temp Pulse Resp BP Pulse Ox
97.9 F 66 16 121/72 95
07/19/25 07:26 07/19/25 07:26 07/19/25 07:26 07/19/25 07:26 07/19/25 07:26
Lab Results - Hematology
07/16/25 07/17/25 07/18/25
10:11 05:50 06:12
WBC 13.1 H 12.5 H 8.7
07/19/25
06:06
WBC 7.9
Lab Results - Chemistry
07/16/25 07/17/25 07/17/25
10:11 05:50 07:57
BUN 26 H Cancelled 24 H
Creatinine 1.0 Cancelled 0.8
Estimated Creat Clear 90 Cancelled 109
Albumin 4.3
07/18/25
06:12
BUN 29 H
Creatinine 0.8
Estimated Creat Clear 109
Albumin
07/16/25 07/16/25
10:11 14:15
Lactic Acid 1.1 Cancelled
Microbiology Results
07/18/25 17:25 Gram Stain - Preliminary
Abscess
07/16/25 11:32 Blood Culture - Preliminary
Blood/Venous No Growth in 48 hours- Final report to follow
07/16/25 20:20 Anaerobic Culture - Preliminary
Abscess Culture pending. Anaerobic cultures are examined after 3
days incubation. Additional information to follow.
07/16/25 20:20 Wound Culture - Preliminary
Abscess Gram Stain - Preliminary
07/16/25 10:11 Blood Culture - Preliminary
Blood/Venous No Growth in 48 hours- Final report to follow
[2025-07-19] MEDS: FOLVITE 1 MG PO (10:26)
[2025-07-19] MEDS: B COMPLEX w/VITAMIN C 1 CAPLET PO (10:26)
[2025-07-19] MEDS: KEPPRA 250 MG PO ×2 (10:26→21:00)
[2025-07-19] MEDS: VITAMIN B1 100 MG PO (10:26)
[2025-07-19] MEDS: SENOKOT-S 2 TABLET PO ×2 (10:26→21:00)
[2025-07-19] MEDS: DEPAKENE 500 MG PO ×2 (10:26→21:00)
[2025-07-19] MEDS: ONFI 15 MG PO ×3 (10:38→22:52)
[2025-07-19] MEDS: ROXICODONE 10 MG PO ×2 (10:38→22:57)
[2025-07-19] MEDS: VIMPAT 300 MG PO ×2 (10:38→21:00)
[2025-07-19 10:53] VITALS: BP 102/70
--- NOTE | 2025-07-19 15:00 | PTCARENOTE ---
Patient c/o / jaw/mouth pain. Roxicodone given with good relief. Patient advanced to regular diet as tolerated. Patient tolerated 100% of Regular meal. Patient OOB to chair with assist and walker. Patient tolerated sitting up 3 hr. Patient
incontinent at times, pad and panties placed on patient. Patient rings call campbell appropriately, but not consistently. Bed and chair alarm maintained. Patient request his friend Socorro be updated with his plan of care. Socorro called and RN updated
friend, all questions answered. Patient's left jaw dressing changed x2 for modrate amount of serous sang drainage, ABD, 4x4 and Spandage placed.
[2025-07-19 15:29] VITALS: BP 121/73
[2025-07-19] MEDS: LOVENOX 40 MG SC (17:37)
[2025-07-19 23:00] VITALS: BP 127/80
[2025-07-20] MEDS: ZOSYN 50 IV (03:28)
[2025-07-20] MEDS: VANCOCIN 275 MG IV (05:06)
[2025-07-20 07:50] VITALS: BP 141/88
[2025-07-20] MEDS: ONFI 15 MG PO ×3 (07:59→23:02)
[2025-07-20] MEDS: ROXICODONE 10 MG PO (07:59)
[2025-07-20] MEDS: VIMPAT 300 MG PO ×2 (08:00→21:06)
[2025-07-20] MEDS: B COMPLEX w/VITAMIN C 1 CAPLET PO (08:01)
[2025-07-20] MEDS: DEPAKENE 500 MG PO ×2 (08:01→21:06)
[2025-07-20] MEDS: FOLVITE 1 MG PO (08:01)
[2025-07-20] MEDS: KEPPRA 250 MG PO ×2 (08:01→21:06)
[2025-07-20] MEDS: VITAMIN B1 100 MG PO (08:01)
[2025-07-20] MEDS: SENOKOT-S 2 TABLET PO ×2 (08:04→21:06)
--- NOTE | 2025-07-20 09:28 | W.PN.HOSP.TC ---
Today's Communication/Plan
-
see bold
Assessment / Plan
Assessment / Plan
59-year-old male past medical history of alcohol use disorder, Warnicke Korsakoff syndrome, epilepsy, normal pressure hydrocephalus s/p SECURITY SYSTEMS INTEGRATOR shunt, parafalcine meningioma, history of subdural hematoma, hypertension, anxiety/depression, alcoholic
hepatitis, peptic ulcer disease, presenting with facial swelling. Vital signs show fever of 102.8. �Tachycardia up to 119. Labs show leukocytosis of 13. �CT neck shows abscess formation severe inflammation around the left mandible with large amount
of subcutaneous tissue swelling without subcutaneous emphysema. �There are dental caries. 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 �Blood cultures, n.p.o., IV fluids, Unasyn, oral surgeon
consulted and plan for OR tonight.
Sepsis secondary to Dental Abscess
-Appreciate oral surgery, s/p I & D of left submandibular abscess, extraction of teeth #19, 20, 21 on 07/16
-Status post repeat I&D of left submandibular abscess 07/18
-07/16 GS w/ strep, blood cultures negative to date
-07/18 GS w/ few WBC's, neg for organisms
-IV Unasyn changed to vancomycin and Zosyn 07/18, ID recommends changing back to IV Unasyn 07/20
-Trend fever and white count
Seizure Disorder
-Continue clobazam, lacosamide, levetiracetam and valproic acid
Wernicke-Korsakoff Syndrome
-Continue thiamine and folic acid
Obesity due to excess calories
- Affects all aspects of care
Hx Alcohol Use Disorder - Patient sober since 2022
Hx Subdural Hematoma
Hx NPH s/p SECURITY SYSTEMS INTEGRATOR Shunt 2023
DVT proph: Lovenox
Code Status: Full Code
Total time spent to see the patient on the floor, examine the patient, review data and lab results, discuss treatment plan with patient, nursing staff around 38 minutes.
Physical Exam
General: Obese, no acute distress
HEENT: Normocephalic
Swelling of the left lower lip, submandibular, and submental regions. Induration of the submental region. Overlying erythema.
Respiratory: Clear to Auscultation bilaterally
Cardiac: Normal S1/S2, Regular Rate and Rhythm
GI: Soft, Nontender, Nondistended, Normal Bowel Sounds
Extremities: No Clubbing, Cyanosis, or Edema
Neuro: Nonfocal/Grossly Intact
Anticipated Discharge: > 48 hours
Subjective/Interval History
-
Date of Service: July 20, 2025
Patient's left submandibular pain is improved. He had a bowel movement. No chest pain. No fever, no vomiting.
Objective Data
-
Labs:
Laboratory Results
07/20/25
06:00
WBC Pending
Hgb Pending
Hct Pending
Plt Count Pending
Sodium Pending
Potassium Pending
Chloride Pending
Carbon Dioxide Pending
BUN Pending
Creatinine Pending
Glucose Pending
Calcium Pending
Vital Signs:
Vital Signs
Temp Pulse Resp BP Pulse Ox
98.8 F 71 16 141/88 96
07/20/25 07:50 07/20/25 07:50 07/20/25 07:50 07/20/25 07:50 07/20/25 07:50
I&O
07/19/25 07/20/25 07/21/25
06:59 06:59 06:59
Intake Total 1740 / 1740 2275 / 2275
Output Total 300 / 300 700 / 700
Balance 1440 / 1440 1575 / 1575
--- NOTE | 2025-07-20 09:53 | W.PN.OMFS ---
Today's Communication
-
- Continue antibiotics, following cultures
- Peridex rinses BID and continue oral hygiene
- Diet as tolerated
Assessment / Plan
-
59M 4 days s/p Incision and drainage of left submandibular abscess, extraction of teeth #19, 20, 21, 2 days s/p repeat left submandibular I&D with overall improvement in swelling and no drain output. Drains removed. Plan to continue to follow
progress on IV antibiotics and determine antibiotic plan
Subjective Data
-
59M 4 days s/p Incision and drainage of left submandibular abscess, extraction of teeth #19, 20, 21, 2 days s/p repeat left submandibular I&D. He is tolerating his diet. His pain is improving
Objective Data
-
Vitals, I&O and Lab Results:
Vital Signs
Temp Pulse Resp BP Pulse Ox
37.1 C 71 16 141/88 96
07/20/25 07:50 07/20/25 07:50 07/20/25 07:50 07/20/25 07:50 07/20/25 07:50
Intake and Output
07/19/25 07/20/25 07/21/25
06:59 06:59 06:59
Intake Total 1740 / 1740 2275 / 2275
Output Total 300 / 300 700 / 700
Balance 1440 / 1440 1575 / 1575
Intake:
Oral fluids 660 / 660 1800 / 1800
IV fluids (Total) 300 / 300
IV piggybacks 780 / 780 475 / 475
Output:
Urine, Voided 300 / 300 700 / 700
Other:
Number of approximated MODERATE 1
amounts of urine
Number of approximated LARGE 1 1
amounts of urine
How many times incontinent 1 1
SATURATED amount urine
Plt Count 280 10^3/uL (130-400) 07/19/25 06:06
Microbiology
07/16/25 20:20 Anaerobic Culture - Preliminary
Abscess Culture pending. Anaerobic cultures are examined after 3
days incubation. Additional information to follow.
07/16/25 20:20 Wound Culture - Preliminary
Abscess Gram Stain - Preliminary
07/16/25 11:32 Blood Culture - Preliminary
Blood/Venous No Growth in 72 hours- Final report to follow
07/18/25 17:25 Anaerobic Culture - Preliminary
Abscess Culture pending. Anaerobic cultures are examined after 3
days incubation. Additional information to follow.
07/18/25 17:25 Wound Culture - Preliminary
Abscess Gram Stain - Preliminary
07/16/25 10:11 Blood Culture - Preliminary
Blood/Venous No Growth in 72 hours- Final report to follow
Physical Exam
-
E/O: Submandibular and submental swelling softer than previously. Buccal induration with overlying small area of erythema only in the buccal region. [place] drains in place with minimal output, no purulent drainage
I/O: Swelling of the left mandibular vestibule. [place] drains in place. No purulent drainage. FOM soft
--- NOTE | 2025-07-20 10:35 | CON.ID ---
Consultation
-
Date/Time Consultation Requested: 07/20/2025 0934
Date/Time Consultation Performed: 07/20/2025 1030
Requesting Provider: Dr. Davis
Performing Provider: Dr. Herring
Reason for Consultation: Submandibular abscess
Chief Complaint / Past History
History of Present Illness
Luis Miguel Caballero is a 59-year-old man being evaluated at the request of Dr. Davis in regards to submandibular abscess /Billy's angina. History is obtained from chart review, along with patient interview.
The patient initially presented to [facility] on 07/16[facility]2025 secondary to left facial swelling and fever. At the time, he reported left tooth pain for the last several months, with increasing discomfort over the prior weeks. Over several
days just prior to admission he developed increasing swelling of the left face, to involve the lips.
On initial presentation he was found to have a leukocytosis, and a neck CT was performed which revealed suspected abscess formation and severe inflammation of the left mandibular area, but without bony destruction. The patient was evaluated by OMFS
and he underwent I&D of left submandibular abscess and extraction of 3 teeth that day. The patient was placed on empiric antibiotics. Hospital course has been significant for ongoing swelling, and on 07/18 he was taken back to the OR for repeat
I&D. Cultures to date have been unrevealing. Infectious Diseases is asked to comment upon further antimicrobial management.
At present he is quite somnolent, but admits to ongoing discomfort in the left submandibular area.
Past History
Additional Past Medical History:
HTN
Seizure disorder
Wernicke-Korsakoff syndrome
Epilepsy
Hx alcoholic use disorder
Alcoholic hepatitis
Normal pressure hydrocephalus
Hx subdural hematoma
Anxiety/depression
Peptic ulcer disease
Additional Past Surgical History:
LOG SORTER shunt
Allergy History:
No Known Allergies Allergy (Verified 07/16/25 09:44)
Medications Reviewed: Yes
Current Antibiotics:
Vanco
Zosyn
Social History
Tobacco: Former Smoker
Alcohol: Former
Drug: None
Personal:
Living: With Family
Family History
Family History: Not Pertinent
Review of Systems
Vital Signs
Temp Pulse Resp BP Pulse Ox
98.8 F 71 16 141/88 96
07/20/25 07:50 07/20/25 07:50 07/20/25 07:50 07/20/25 07:50 07/20/25 07:50
Physical Exam
Physical Exam
Constitutional: No Acute Distress, Comfortable and Non-toxic
Eyes: No Conjunctival Hemorrhage and Sclera Anicteric
Oral: Other (Left submandibular area with incision. Small amount of purulent drainage noted on bandage. Induration of the submandibular area)
Cardiovascular: S1/S2; Negative S3/S4
Pulmonary: Clear; Negative Wheezes, Rales or Rhonchi
Gastrointestinal: Soft, Non Tender, Distended, Normal Bowel Sounds, No Rebound and No Guarding
Extremities: Negative Edema, Cyanosis or Erythema
Skin: Warm and Dry; Negative Rash or Jaundice
Wound: Other (Left submandibular area)
Neurological: Awake and Alert
Psychological: Calm
Lab / Diagnostic Study Results
Abs Immat Gran (auto) 0.1 10^3/uL (0-0.05) H 07/16/25 10:11
Absolute Neuts (auto) 9.6 10^3/uL (1.4-6.5) H 07/16/25 10:11
Absolute Lymphs (auto) 1.3 10^3/uL (1.2-3.4) 07/16/25 10:11
Absolute Monos (auto) 2.2 10^3/uL (0.1-0.6) H 07/16/25 10:11
Absolute Basos (auto) 0.0 10^3/uL (0-0.2) 07/16/25 10:11
Immature Gran % 0.4 % (0-0.5) 07/16/25 10:11
Neutrophils % 72.7 % (42.2-75.2) 07/16/25 10:11
Lymphocytes % 9.5 % (20.5-51.1) L 07/16/25 10:11
Monocytes % 16.7 % (1.7-9.3) H 07/16/25 10:11
Eosinophils % 0.5 % (0-6) 07/16/25 10:11
Basophils % 0.2 % (0-2) 07/16/25 10:11
PT 15.0 Sec (11.4-14.6) H 07/16/25 10:11
INR 1.15 07/16/25 10:11
Lactic Acid Cancelled 07/16/25 14:15
Microbiology Results
Micro:
07/16/25 10:11 Blood Culture - Preliminary
Blood/Venous No Growth in 4 days- Final report to follow
07/16/25 20:20 Anaerobic Culture - Preliminary
Abscess Culture pending. Anaerobic cultures are examined after 3
days incubation. Additional information to follow.
07/16/25 20:20 Wound Culture - Preliminary
Abscess Gram Stain - Preliminary
07/16/25 11:32 Blood Culture - Preliminary
Blood/Venous No Growth in 72 hours- Final report to follow
07/18/25 17:25 Anaerobic Culture - Preliminary
Abscess Culture pending. Anaerobic cultures are examined after 3
days incubation. Additional information to follow.
07/18/25 17:25 Wound Culture - Preliminary
Abscess Gram Stain - Preliminary
Imaging:
07/18/2025 CT neck with IV contrast: the previously suspected abscess about the left mandibular body is progressed anteriorly but decreased posteriorly. Improved associated soft tissue swelling and edematous/inflammatory changes. Stable mass
effect. New tract in the subcutaneous tissues as described in body of dictation, likely from previous drains. Right LOG SORTER shunt in place. Moderate hydrocephalus is noted and stable. Please see full dictation for additional detail.
07/16/2025 CT neck with IV contrast: findings suggestive of abscess formation and severe inflammation around the left mandibular body, with a noted rim-enhancing fluid collection approximately 2.0 x 0.7 x 1.8 cm. No associated bony destruction.
Please see full dictation for additional detail.
Assessment / Plan
Left submandibular abscess.
- S/p I&D x 2
- Discussed with lab. Few strep spp. on culture.
Leukocytosis; improved
HTN
Seizure disorder
Wernicke-Korsakoff syndrome
Epilepsy
Hx alcoholic use disorder
Alcoholic hepatitis
Normal pressure hydrocephalus
Hx subdural hematoma
Anxiety/depression
Peptic ulcer disease
Recommendations:
White count improved from admission.
Patient is status post I&D x 2.
Induration persists.
Recovery strep species on culture. No recovery of MRSA or Pseudomonas.
Transition back to Unasyn 3 gm IV q.6 hours
Follow for clinical improvement. May require additional imaging to assess for additional collections.
Care Review
Plan reviewed with: Physician (Hospitalist)
[2025-07-20 10:45] LABS: Hematocrit 34.3 % (39.0-52.0); Hemoglobin 11.4 g/dL (13.0-18.0); Mean Corp Hgb Conc. 33.2 g/dL (33.0-37.0); Mean Corpuscular Volume 88.2 fL (80.0-94.0); Platelet Count 268 10^3/uL (130-400); Red Cell Dist. Width 14.0 % (11.5-14.5)
[2025-07-20 11:04] LABS: Blood Urea Nitrogen 19 mg/dl (9-20); Calcium 8.6 mg/dl (8.4-10.2); Carbon Dioxide 26 mmol/L (22-30); Chloride 107 mmol/L (98-107); Estimated Creatinine Clearance 109 ml/min; Glucose 79 mg/dl (70-99); Magnesium 2.8 mg/dl (1.6-2.3); Potassium 4.4 mmol/L (3.5-5.1); Sodium 140 mmol/L (135-145); eGFR > 60.00
[2025-07-20] MEDS: ZOSYN IV (11:08)
[2025-07-20] MEDS: PERIDEX 0.12% ORAL RINSE 15 ML PO ×2 (12:16→21:06)
[2025-07-20] MEDS: MILK OF MAGNESIA 30 ML PO (12:18)
[2025-07-20] MEDS: MIRALAX 17 GRAMS PO (12:18)
[2025-07-20] MEDS: UNASYN IV ×2 (12:18→17:00)
[2025-07-20 16:14] VITALS: BP 144/89
[2025-07-20] MEDS: LOVENOX 40 MG SC (16:59)
[2025-07-20 23:15] VITALS: BP 140/86
[2025-07-21] MEDS: UNASYN IV ×4 (01:03→18:03)
[2025-07-21 07:07] LABS: Hematocrit 32.3 % (39.0-52.0); Hemoglobin 10.6 g/dL (13.0-18.0); Mean Corp Hgb Conc. 32.8 g/dL (33.0-37.0); Mean Corpuscular Volume 87.5 fL (80.0-94.0); Platelet Count 301 10^3/uL (130-400); Red Cell Dist. Width 13.5 % (11.5-14.5)
[2025-07-21] MEDS: ONFI 15 MG PO ×3 (07:28→22:55)
[2025-07-21] MEDS: VIMPAT 300 MG PO ×2 (07:28→21:00)
[2025-07-21] MEDS: FOLVITE 1 MG PO (07:29)
[2025-07-21] MEDS: KEPPRA 250 MG PO ×2 (07:29→20:59)
[2025-07-21] MEDS: SENOKOT-S 2 TABLET PO ×2 (07:29→20:59)
[2025-07-21] MEDS: B COMPLEX w/VITAMIN C 1 CAPLET PO (07:29)
[2025-07-21] MEDS: DEPAKENE 500 MG PO ×2 (07:29→20:59)
[2025-07-21] MEDS: VITAMIN B1 100 MG PO (07:29)
[2025-07-21 08:07] VITALS: BP 140/88
--- NOTE | 2025-07-21 08:24 | W.PN.OMFS ---
Today's Communication
-
- Continue antibiotics
- Peridex rinses BID and continue oral hygiene
- NPO for possible repeat I&D
Assessment / Plan
-
59M 5 days s/p Incision and drainage of left submandibular abscess, extraction of teeth #19, 20, 21, 3 days s/p repeat left submandibular I&D with persistent indurated swelling. Plan for a repeat CT scan to evaluate for remaining abscess as he is
not progressing as would be expected at this point.
Subjective Data
-
59M 5 days s/p Incision and drainage of left submandibular abscess, extraction of teeth #19, 20, 21, 3 days s/p repeat left submandibular I&D. He is tolerating his diet. Pain is controlled
Objective Data
-
Vitals, I&O and Lab Results:
Vital Signs
Temp Pulse Resp BP Pulse Ox
36.9 C 70 16 140/88 95
07/21/25 08:07 07/21/25 08:07 07/21/25 08:07 07/21/25 08:07 07/21/25 08:07
Intake and Output
07/20/25 07/21/25 07/22/25
06:59 06:59 06:59
Intake Total 2275 / 2275 1440 / 1440
Output Total 700 / 700 300 / 300
Balance 1575 / 1575 1140 / 1140
Intake:
Oral fluids 1800 / 1800 1440 / 1440
IV piggybacks 475 / 475
Output:
Urine, Voided 700 / 700 300 / 300
Other:
Number of approximated MODERATE 1
amounts of urine
Number of approximated LARGE 1
amounts of urine
How many times incontinent 1 1 2
SATURATED amount urine
Lab Data
07/21/25 06:13
07/20/25 10:09
Plt Count 301 10^3/uL (130-400) 08/31/25 06:13
Microbiology
07/16/25 20:20 Anaerobic Culture - Preliminary
Abscess Culture pending. Anaerobic cultures are examined after 3
days incubation. Additional information to follow.
07/16/25 20:20 Wound Culture - Preliminary
Abscess Gram Stain - Preliminary
07/16/25 11:32 Blood Culture - Preliminary
Blood/Venous No Growth in 4 days- Final report to follow
07/16/25 10:11 Blood Culture - Preliminary
Blood/Venous No Growth in 4 days- Final report to follow
Physical Exam
-
E/O: Indurated submandibular and submental swelling with overlying erythema. No purulence from incisions
I/O: Swelling of the left mandibular vestibule. No purulent drainage. FOM soft
Data Reviewed
-
Labs: Report reviewed by me
--- NOTE | 2025-07-21 08:34 | W.PN.HOSP.TC ---
Today's Communication/Plan
-
For repeat neck CT today
Assessment / Plan
Assessment / Plan
59-year-old male past medical history of alcohol use disorder, Warnicke Korsakoff syndrome, epilepsy, normal pressure hydrocephalus s/p INTERNAL MEDICINE HOSPITALIST shunt, parafalcine meningioma, history of subdural hematoma, hypertension, anxiety/depression, alcoholic
hepatitis, peptic ulcer disease, presenting with facial swelling. Vital signs show fever of 102.8. �Tachycardia up to 119. Labs show leukocytosis of 13. �CT neck shows abscess formation severe inflammation around the left mandible with large amount
of subcutaneous tissue swelling without subcutaneous emphysema. �There are dental caries. 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 �Blood cultures, n.p.o., IV fluids, Unasyn, oral surgeon
consulted and plan for OR tonight.
Sepsis secondary to Dental Abscess
-Appreciate oral surgery, s/p I & D of left submandibular abscess, extraction of teeth #19, 20, 21 on 07/16
-Status post repeat I&D of left submandibular abscess 07/18
-07/16 GS w/ strep, blood cultures negative to date
-07/18 GS w/ few WBC's, neg for organisms
-IV Unasyn changed to vancomycin and Zosyn 07/18, ID changed back to IV Unasyn 07/20
-For repeat neck CT today
-Trend fever and white count
Seizure Disorder
-Continue clobazam, lacosamide, levetiracetam and valproic acid
Wernicke-Korsakoff Syndrome
-Continue thiamine and folic acid
Obesity due to excess calories
- Affects all aspects of care
Hx Alcohol Use Disorder - Patient sober since 2022
Hx Subdural Hematoma
Hx NPH s/p INTERNAL MEDICINE HOSPITALIST Shunt 2023
DVT proph: Lovenox
Code Status: Full Code
Total time spent to see the patient on the floor, examine the patient, review data and lab results, discuss treatment plan with patient, nursing staff around 45 minutes.
Physical Exam
General: Obese, no acute distress
HEENT: Normocephalic
Swelling of the left lower lip, submandibular, and submental regions. Induration of the submental region. Overlying erythema.
Respiratory: Clear to Auscultation bilaterally
Cardiac: Normal S1/S2, Regular Rate and Rhythm
GI: Soft, Nontender, Nondistended, Normal Bowel Sounds
Extremities: No Clubbing, Cyanosis, or Edema
Neuro: Nonfocal/Grossly Intact
Anticipated Discharge: > 48 hours
Subjective/Interval History
-
Date of Service: July 21, 2025
Patient's pain has improved. Continues to have swelling. No vomiting, no chest pain. No fever.
Objective Data
-
Labs:
Laboratory Results
07/21/25
06:13
WBC 7.7
Hgb 10.6 L
Hct 32.3 L
Plt Count 301
Vital Signs:
Vital Signs
Temp Pulse Resp BP Pulse Ox
98.5 F 70 16 140/88 95
07/21/25 08:07 07/21/25 08:07 07/21/25 08:07 07/21/25 08:07 07/21/25 08:07
I&O
07/20/25 07/21/25 07/22/25
06:59 06:59 06:59
Intake Total 2275 / 2275 1440 / 1440
Output Total 700 / 700 300 / 300
Balance 1575 / 1575 1140 / 1140
--- NOTE | 2025-07-21 11:00 | W.PN.ID1 ---
Date of Service
Date of Service: July 21, 2025
Today's Communication
Continue antibiotic
Assessment / Plan
Left submandibular abscess.
- S/p I&D x 2
- Discussed with lab. Few strep spp. on culture.
Leukocytosis; improved
HTN
Seizure disorder
Wernicke-Korsakoff syndrome
Epilepsy
Hx alcoholic use disorder
Alcoholic hepatitis
Normal pressure hydrocephalus
Hx subdural hematoma
Anxiety/depression
Peptic ulcer disease
Recommendations:
White count improved from admission.
Patient is status post I&D x 2.
Induration persists.
Recovery strep species on culture. No recovery of MRSA or Pseudomonas.
Continue Unasyn 3 gm IV q.6 hours
Follow for clinical improvement. For repeat CT today.
����������������������������������������������������������
Chief Complaint
-: Other (Left submandibular abscess)
Subjective / Review of Systems
Patient seen and examined. Reports ongoing left submandibular discomfort.
Review of Systems: No Fever and No Chills
Vital Signs / Physical Exam
Vital Signs
Vital Signs
Temp Pulse Resp BP Pulse Ox
98.5 F 70 16 140/88 95
07/21/25 08:07 07/21/25 08:07 07/21/25 08:07 07/21/25 08:07 07/21/25 08:07
Physical Exam
Constitutional: Comfortable, Chronically Ill and Non-toxic
Eyes: Sclera Anicteric
Oropharyngeal: Other (Ongoing induration of the left submandibular area. Incision with scant drainage. Positive tenderness.)
Cardiovascular: S1/S2
Pulmonary: Clear
Gastrointestinal: Non Tender and Distended
Neurological: Awake
Psychological: Calm
Objective Data
Lab Data
Lab Results
07/21/25 06:13
07/20/25 10:09
PT 15.0 Sec (11.4-14.6) H 07/16/25 10:11
INR 1.15 07/16/25 10:11
APTT 30.6 Sec (23.4-35.0) 07/16/25 10:11
Estimated Creat Clear 109 ml/min 07/20/25 10:09
Lactic Acid Cancelled 07/16/25 14:15
Total Bilirubin 0.7 mg/dl (0.2-1.3) 07/16/25 10:11
AST 26 U/L (17-59) 07/16/25 10:11
ALT 30 U/L (0-50) 07/16/25 10:11
Alkaline Phosphatase 70 U/L (38-126) 07/16/25 10:11
Most recent labs reviewed.
Micro Results:
07/16/25 10:11 Blood Culture - Final
Blood/Venous No Growth - Final Report
07/16/25 20:20 Anaerobic Culture - Preliminary
Abscess Culture pending. Anaerobic cultures are examined after 3
days incubation. Additional information to follow.
07/16/25 20:20 Wound Culture - Preliminary
Abscess Gram Stain - Preliminary
07/16/25 11:32 Blood Culture - Preliminary
Blood/Venous No Growth in 4 days- Final report to follow
07/18/25 17:25 Anaerobic Culture - Preliminary
Abscess Culture pending. Anaerobic cultures are examined after 3
days incubation. Additional information to follow.
07/18/25 17:25 Wound Culture - Preliminary
Abscess Gram Stain - Preliminary
Imaging:
07/18/2025 CT neck with IV contrast: the previously suspected abscess about the left mandibular body is progressed anteriorly but decreased posteriorly. Improved associated soft tissue swelling and edematous/inflammatory changes. Stable mass
effect. New tract in the subcutaneous tissues as described in body of dictation, likely from previous drains. Right MINI SHIFTER shunt in place. Moderate hydrocephalus is noted and stable. Please see full dictation for additional detail.
07/16/2025 CT neck with IV contrast: findings suggestive of abscess formation and severe inflammation around the left mandibular body, with a noted rim-enhancing fluid collection approximately 2.0 x 0.7 x 1.8 cm. No associated bony destruction.
Please see full dictation for additional detail.
Care Review
Plan reviewed with: Physician (Hospitalist)
[2025-07-21] MEDS: PERIDEX 0.12% ORAL RINSE 15 ML PO ×2 (12:56→20:59)
--- NOTE | 2025-07-21 15:31 | W.PN.UPDATE ---
Update Note
Progress Note Update
CT - grossly stable phlegmon/abscess about the left mandibular body.
Transfer to [facility] was discussed with on-call OMFS at [facility]. He requested re-evaluation tomorrow for worsening/drainable collection prior to accepting transfer. Plan to re-evaluate clinical progress tomrorow
[2025-07-21 16:35] VITALS: BP 129/77
[2025-07-21] MEDS: LOVENOX 40 MG SC (18:03)
[2025-07-21 23:22] VITALS: BP 137/74
[2025-07-22] MEDS: UNASYN IV ×4 (00:57→17:59)
[2025-07-22 05:41] LABS: Hematocrit 34.2 % (39.0-52.0); Hemoglobin 11.4 g/dL (13.0-18.0); Mean Corp Hgb Conc. 33.3 g/dL (33.0-37.0); Mean Corpuscular Volume 86.1 fL (80.0-94.0); Platelet Count 344 10^3/uL (130-400); Red Cell Dist. Width 13.2 % (11.5-14.5)
[2025-07-22 06:05] LABS: Blood Urea Nitrogen 15 mg/dl (9-20); Calcium 8.6 mg/dl (8.4-10.2); Carbon Dioxide 30 mmol/L (22-30); Chloride 102 mmol/L (98-107); Estimated Creatinine Clearance 124 ml/min; Glucose 101 mg/dl (70-99); Potassium 4.6 mmol/L (3.5-5.1); Sodium 136 mmol/L (135-145); eGFR > 60.00
[2025-07-22 07:33] VITALS: BP 106/80
--- NOTE | 2025-07-22 08:15 | W.PN.OMFS ---
Today's Communication
-
- Continue antibiotics
- Peridex rinses BID and continue oral hygiene
- Diet as tolerated
- Transfer to [facility] for further management
Assessment / Plan
-
59M 6 days s/p Incision and drainage of left submandibular abscess, extraction of teeth #19, 20, 21, 4 days s/p repeat left submandibular I&D with persistent indurated swelling and collection seen on repeat CT yesterday. I discussed these findings
with the assistant front desk manager OMFS at [facility] yesterday. Plan for transfer to [facility] for further treatment.
Subjective Data
-
59M 6 days s/p Incision and drainage of left submandibular abscess, extraction of teeth #19, 20, 21, 4 days s/p repeat left submandibular I&D. He is tolerating his diet. Pain is controlled
Objective Data
-
Vitals, I&O and Lab Results:
Vital Signs
Temp Pulse Resp BP Pulse Ox
36.8 C 82 14 106/80 92
07/22/25 07:33 07/22/25 07:33 07/22/25 07:33 07/22/25 07:33 07/22/25 07:33
Intake and Output
07/21/25 07/22/25 07/23/25
06:59 06:59 06:59
Intake Total 1440 / 1440 1200 / 1200
Output Total 300 / 300
Balance 1140 / 1140 1200 / 1200
Intake:
Oral fluids 1440 / 1440 960 / 960
IV piggybacks 240 / 240
Output:
Urine, Voided 300 / 300
Other:
Number of approximated LARGE 2
amounts of urine
How many times incontinent 1 2
SATURATED amount urine
Lab Data
07/22/25 05:01
07/22/25 05:01
Plt Count 344 10^3/uL (130-400) 07/22/25 05:01
Microbiology
07/18/25 17:25 Anaerobic Culture - Preliminary
Abscess Culture pending. Anaerobic cultures are examined after 3
days incubation. Additional information to follow.
07/16/25 20:20 Anaerobic Culture - Preliminary
Abscess Culture pending. Anaerobic cultures are examined after 3
days incubation. Additional information to follow.
07/16/25 20:20 Wound Culture - Preliminary
Abscess Gram Stain - Preliminary
07/18/25 17:25 Wound Culture - Preliminary
Abscess Gram Stain - Preliminary
07/16/25 11:32 Blood Culture - Final
Blood/Venous No Growth - Final Report
07/16/25 10:11 Blood Culture - Final
Blood/Venous No Growth - Final Report
Physical Exam
-
E/O: Indurated left submandibular and submental swelling with overlying erythema. No purulence from incisions
I/O: Swelling of the left mandibular vestibule. No purulent drainage. FOM soft, some swelling along left lingual mandible
Data Reviewed
-
Labs: Report reviewed by me
CT Scan: Image personally reviewed and interpreted and Report reviewed by me (Redemonstration of severe subcutaneous edema and inflammatory change about the left jaw/lower cheek soft tissues with small amounts of gas and fluid tracking along the
left inferolateral aspect of the mandible, overall grossly stable from prior. Also similar phlegmon/soft tissue thickening about the)
[2025-07-22] MEDS: B COMPLEX w/VITAMIN C 1 CAPLET PO (08:23)
[2025-07-22] MEDS: ONFI 15 MG PO ×3 (08:23→22:43)
[2025-07-22] MEDS: PERIDEX 0.12% ORAL RINSE 15 ML PO ×2 (08:23→19:29)
[2025-07-22] MEDS: SENOKOT-S 2 TABLET PO ×2 (08:23→19:29)
[2025-07-22] MEDS: VIMPAT 300 MG PO ×2 (08:24→19:29)
[2025-07-22] MEDS: FOLVITE 1 MG PO (08:24)
[2025-07-22] MEDS: KEPPRA 250 MG PO ×2 (08:24→19:29)
[2025-07-22] MEDS: VITAMIN B1 100 MG PO (08:24)
[2025-07-22] MEDS: DEPAKENE 500 MG PO ×2 (08:24→19:29)
--- NOTE | 2025-07-22 11:10 | W.PN.HOSP.TC ---
Today's Communication/Plan
-
CW IV Unasyn
Will discuss with OMFS at [facility] today
Assessment / Plan
Assessment / Plan
59-year-old male past medical history of alcohol use disorder, Warnicke Korsakoff syndrome, epilepsy, normal pressure hydrocephalus s/p EVENT ATTENDANT shunt, parafalcine meningioma, history of subdural hematoma, hypertension, anxiety/depression, alcoholic
hepatitis, peptic ulcer disease, presenting with facial swelling. Vital signs show fever of 102.8. �Tachycardia up to 119. Labs show leukocytosis of 13. �CT neck shows abscess formation severe inflammation around the left mandible with large amount
of subcutaneous tissue swelling without subcutaneous emphysema. �There are dental caries. 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 �Blood cultures, n.p.o., IV fluids, Unasyn, oral surgeon
consulted and plan for OR tonight.
Sepsis secondary to submandibular abscess
-Appreciate oral surgery, s/p I & D of left submandibular abscess, extraction of teeth #19, 20, 21 on 07/16
-Status post repeat I&D of left submandibular abscess 07/18
-07/16 GS w/ strep, blood cultures negative to date
-07/18 GS w/ few WBC's, neg for organisms
-IV Unasyn changed to vancomycin and Zosyn 07/18, ID changed back to IV Unasyn 07/20
-Repeat neck CT 07/21 - Grossly stable phlegmon/abscess about the left mandibular body.
-Trend fever and white count
Seizure Disorder
-Continue clobazam, lacosamide, levetiracetam and valproic acid
Wernicke-Korsakoff Syndrome
-Continue thiamine and folic acid
Obesity due to excess calories
- Affects all aspects of care
Hx Alcohol Use Disorder - Patient sober since 2022
Hx Subdural Hematoma
Hx NPH s/p EVENT ATTENDANT Shunt 2023
DVT proph: Lovenox
Code Status: Full Code
OMFS today recommens transfer to [facility] for further treatments
Anticipated Discharge: > 48 hours
Subjective/Interval History
-
Date of Service: July 22, 2025
Left neck pain seems to be okay per patient.
No nausea vomiting. No fever or chills. Swallowing okay.
Denies shortness of breath.
Objective Data
-
Labs:
Laboratory Results
07/22/25
05:01
WBC 6.8
Hgb 11.4 L
Hct 34.2 L
Plt Count 344
Sodium 136
Potassium 4.6
Chloride 102
Carbon Dioxide 30
BUN 15
Creatinine 0.7
Glucose 101 H
Calcium 8.6
Vital Signs:
Vital Signs
Temp Pulse Resp BP Pulse Ox
98.3 F 82 14 106/80 92
07/22/25 07:33 07/22/25 07:33 07/22/25 07:33 07/22/25 07:33 07/22/25 07:33
I&O
07/21/25 07/22/25 07/23/25
06:59 06:59 06:59
Intake Total 1440 / 1440 1200 / 1200
Output Total 300 / 300
Balance 1140 / 1140 1200 / 1200
Physical Exam
-
General: No Apparent Distress
HEENT: Other (Left submandibular area with swelling and tenderness ; drains are out now)
Respiratory: Clear to Auscultation
Cardiac: Regular Rhythm and S1/S2
Neuro: AO x 3
Psych: Calm
Data Reviewed
-
Labs: Labs Reviewed by me
--- NOTE | 2025-07-22 11:49 | W.PN.ID1 ---
Date of Service
Date of Service: July 22, 2025
Today's Communication
Continue antibiotics per
Assessment / Plan
Left submandibular abscess.
- S/p I&D x 2
- Discussed with lab. Few strep spp. on culture.
Leukocytosis; improved
HTN
Seizure disorder
Wernicke-Korsakoff syndrome
Epilepsy
Hx alcoholic use disorder
Alcoholic hepatitis
Normal pressure hydrocephalus
Hx subdural hematoma
Anxiety/depression
Peptic ulcer disease
Recommendations:
Prior leukocytosis appears resolved.
Patient is status post I&D x 2.
Induration persists.
Recovery of strep species on culture. No recovery of MRSA or Pseudomonas.
Continue Unasyn 3 gm IV q.6 hours
Follow for clinical improvement.
����������������������������������������������������������
Chief Complaint
-: Other (Left submandibular abscess)
Subjective / Review of Systems
Patient seen and examined. Notes ongoing fullness in the left jaw area.
Review of Systems: No Fever and No Chills
Vital Signs / Physical Exam
Vital Signs
Vital Signs
Temp Pulse Resp BP Pulse Ox
98.3 F 82 14 106/80 92
07/22/25 07:33 07/22/25 07:33 07/22/25 07:33 07/22/25 07:33 07/22/25 07:33
Physical Exam
Constitutional: Comfortable, Chronically Ill and Non-toxic
Eyes: Sclera Anicteric
Oropharyngeal: Other (Ongoing induration of the left submandibular area. Incision with scant drainage. Positive tenderness.)
Cardiovascular: S1/S2
Pulmonary: Clear
Gastrointestinal: Non Tender and Distended
Neurological: Awake
Psychological: Calm
Objective Data
Lab Data
Lab Results
07/22/25 05:01
07/22/25 05:01
PT 15.0 Sec (11.4-14.6) H 07/16/25 10:11
INR 1.15 07/16/25 10:11
APTT 30.6 Sec (23.4-35.0) 07/16/25 10:11
Estimated Creat Clear 124 ml/min 07/22/25 05:01
Lactic Acid Cancelled 07/16/25 14:15
Total Bilirubin 0.7 mg/dl (0.2-1.3) 07/16/25 10:11
AST 26 U/L (17-59) 07/16/25 10:11
ALT 30 U/L (0-50) 07/16/25 10:11
Alkaline Phosphatase 70 U/L (38-126) 07/16/25 10:11
Most recent labs reviewed.
Micro Results:
07/16/25 20:20 Wound Culture - Final
Abscess Gram Stain - Final
07/16/25 20:20 Anaerobic Culture - Final
Abscess
07/18/25 17:25 Anaerobic Culture - Preliminary
Abscess Culture pending. Anaerobic cultures are examined after 3
days incubation. Additional information to follow.
07/18/25 17:25 Wound Culture - Preliminary
Abscess Gram Stain - Preliminary
07/16/25 11:32 Blood Culture - Final
Blood/Venous No Growth - Final Report
07/16/25 10:11 Blood Culture - Final
Blood/Venous No Growth - Final Report
Imaging:
07/21/2025 CT neck with IV contrast: Re-demonstration of severe subcutaneous edema and inflammatory change about the left jaw/lower cheek soft tissues with small amounts of gas and fluid tracking along the left inferolateral aspect of the mandible,
overall grossly stable from prior. Also similar phlegmon/soft tissue thickening about the left mandible both externally and internally, causing rightward deviation of the tongue base. No overt osseous erosive change.
07/18/2025 CT neck with IV contrast: the previously suspected abscess about the left mandibular body is progressed anteriorly but decreased posteriorly. Improved associated soft tissue swelling and edematous/inflammatory changes. Stable mass
effect. New tract in the subcutaneous tissues as described in body of dictation, likely from previous drains. Right BARLEY STEEPER shunt in place. Moderate hydrocephalus is noted and stable. Please see full dictation for additional detail.
07/16/2025 CT neck with IV contrast: findings suggestive of abscess formation and severe inflammation around the left mandibular body, with a noted rim-enhancing fluid collection approximately 2.0 x 0.7 x 1.8 cm. No associated bony destruction.
Please see full dictation for additional detail.
Care Review
Plan reviewed with: Physician (Hospitalist)
--- NOTE | 2025-07-22 15:58 | W.PN.UPDATE ---
Update Note
Progress Note Update
Discussed with hospitalist on-call and OMFS director cloud transformation at [facility]. Patient has been accepted to [place] under hospitalist service Dr. Jones Mcgill.
[2025-07-22] MEDS: LOVENOX 40 MG SC (17:59)
[2025-07-22 23:25] VITALS: BP 144/84
[2025-07-23] MEDS: UNASYN IV ×4 (00:59→18:27)
[2025-07-23 07:47] VITALS: BP 132/81
[2025-07-23] MEDS: VITAMIN B1 100 MG PO (08:46)
[2025-07-23] MEDS: SENOKOT-S 2 TABLET PO (08:46)
[2025-07-23] MEDS: ONFI 15 MG PO ×3 (08:46→22:55)
[2025-07-23] MEDS: B COMPLEX w/VITAMIN C 1 CAPLET PO (08:46)
[2025-07-23] MEDS: VIMPAT 300 MG PO ×2 (08:46→22:50)
[2025-07-23] MEDS: DEPAKENE 500 MG PO ×2 (08:47→22:42)
[2025-07-23] MEDS: PERIDEX 0.12% ORAL RINSE 15 ML PO ×2 (08:47→22:42)
[2025-07-23] MEDS: FOLVITE 1 MG PO (08:47)
[2025-07-23] MEDS: KEPPRA 250 MG PO ×2 (08:47→22:53)
[2025-07-23] MEDS: TYLENOL 650 MG PO ×2 (09:09→18:32)
--- NOTE | 2025-07-23 12:52 | W.PN.HOSP.TC ---
Today's Communication/Plan
-
Await transfer to [facility]
Continue with IV Unasyn
Assessment / Plan
Assessment / Plan
59-year-old male past medical history of alcohol use disorder, Warnicke Korsakoff syndrome, epilepsy, normal pressure hydrocephalus s/p PRODUCE DEPARTMENT SUPERVISOR shunt, parafalcine meningioma, history of subdural hematoma, hypertension, anxiety/depression, alcoholic
hepatitis, peptic ulcer disease, presenting with facial swelling. Vital signs show fever of 102.8. �Tachycardia up to 119. Labs show leukocytosis of 13. �CT neck shows abscess formation severe inflammation around the left mandible with large amount
of subcutaneous tissue swelling without subcutaneous emphysema. �There are dental caries. 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 �Blood cultures, n.p.o., IV fluids, Unasyn, oral surgeon
consulted and plan for OR tonight.
Sepsis secondary to submandibular abscess
-Appreciate oral surgery, s/p I & D of left submandibular abscess, extraction of teeth #19, 20, 21 on 07/16
-Status post repeat I&D of left submandibular abscess 07/18
-07/16 GS w/ strep, blood cultures negative to date
-07/18 GS w/ few WBC's, neg for organisms
-IV Unasyn changed to vancomycin and Zosyn 07/18, ID changed back to IV Unasyn 07/20
-Repeat neck CT 07/21 - Grossly stable phlegmon/abscess about the left mandibular body.
-Trend fever and white count
Seizure Disorder
-Continue clobazam, lacosamide, levetiracetam and valproic acid
Wernicke-Korsakoff Syndrome
-Continue thiamine and folic acid
Obesity due to excess calories
- Affects all aspects of care
Hx Alcohol Use Disorder - Patient sober since 2022
Hx Subdural Hematoma
Hx NPH s/p PRODUCE DEPARTMENT SUPERVISOR Shunt 2023
DVT proph: Lovenox
Code Status: Full Code
OMFS recommens transfer to [facility] for further treatments .
[facility] hospitalist sales promotion coordinator and OMFS sales promotion coordinator 07/22/25 - pt accepeted to hospitalist service.
Transfer pt when bed available
Anticipated Discharge: Today
Subjective/Interval History
-
Date of Service: July 23, 2025
No fever or chills. Continues to have left jaw area pain. No nausea vomiting. Tolerating diet. Denies shortness of breath.
Objective Data
-
Vital Signs:
Vital Signs
Temp Pulse Resp BP Pulse Ox
98.1 F 63 16 132/81 98
07/23/25 07:47 07/23/25 07:47 07/23/25 07:47 07/23/25 07:47 07/23/25 07:47
I&O
07/22/25 07/23/25 07/24/25
06:59 06:59 06:59
Intake Total 1200 / 1200 1919
Balance 1200 / 1200 1919
Physical Exam
-
General: Comfortable
HEENT: Other (Indurated left submandibular area with tenderness without much clinical improvement)
Respiratory: Non Labored Respirations; Negative Accessory Resp Muscle Use
Cardiac: Regular Rhythm and S1/S2; Negative Tachycardic
Neuro: Awake and Alert; Negative Oriented
Psych: Calm and Confused (Bit confused about the nature of his illness;keeps repeating questions about care ; he had yesterday confused me to [facility] surgeon .)
Data Reviewed
-
Labs: Labs Reviewed by me
--- NOTE | 2025-07-23 12:54 | W.PN.OMFS ---
Today's Communication
-
- Continue antibiotics
- Peridex rinses BID and continue oral hygiene
- Diet as tolerated
- Transfer to [place] for further management
Assessment / Plan
-
59M 7 days s/p Incision and drainage of left submandibular abscess, extraction of teeth #19, 20, 21, 5 days s/p repeat left submandibular I&D with persistent indurated swelling and collection seen on repeat CT. Plan for transfer to [place] for further
treatment.
Subjective Data
-
59M 7 days s/p Incision and drainage of left submandibular abscess, extraction of teeth #19, 20, 21, 5 days s/p repeat left submandibular I&D. He is tolerating his diet. He reports pain today in his neck and jaw
Objective Data
-
Vitals, I&O and Lab Results:
Vital Signs
Temp Pulse Resp BP Pulse Ox
36.7 C 63 16 132/81 98
07/23/25 07:47 07/23/25 07:47 07/23/25 07:47 07/23/25 07:47 07/23/25 07:47
Intake and Output
07/22/25 07/23/25 07/24/25
06:59 06:59 06:59
Intake Total 1200 / 1200 0 / 1920
Balance 1200 / 1200 1920 / 1920
Intake:
Oral fluids 960 / 960 1680 / 1680
IV piggybacks 240 / 240 240 / 240
Other:
Number of approximated LARGE 2
amounts of urine
How many times incontinent 2 1
SATURATED amount urine
Lab Data
07/22/25 05:01
07/22/25 05:01
Plt Count 344 10^3/uL (130-400) 07/22/25 05:01
Microbiology
07/18/25 17:25 Anaerobic Culture - Preliminary
Abscess Culture pending. Anaerobic cultures are examined after 3
days incubation. Additional information to follow.
07/16/25 20:20 Wound Culture - Final
Abscess Gram Stain - Final
07/16/25 20:20 Anaerobic Culture - Final
Abscess
Physical Exam
-
E/O: Indurated left submandibular and submental swelling with overlying erythema. No purulence from incisions
I/O: Swelling of the left mandibular vestibule. No purulent drainage. FOM soft, some swelling along left lingual mandible
--- NOTE | 2025-07-23 13:24 | W.PN.ID1 ---
Date of Service
Date of Service: July 23, 2025
Today's Communication
Continue antibiotics.
Assessment / Plan
Left submandibular abscess.
- S/p I&D x 2
- Discussed with lab. Few strep spp. on culture.
Leukocytosis; improved
HTN
Seizure disorder
Wernicke-Korsakoff syndrome
Epilepsy
Hx alcoholic use disorder
Alcoholic hepatitis
Normal pressure hydrocephalus
Hx subdural hematoma
Anxiety/depression
Peptic ulcer disease
Recommendations:
Prior leukocytosis resolved.
Patient is status post I&D x 2.
Induration persists.
Recovery of strep species and anaerobes on culture. No recovery of MRSA or Pseudomonas.
Continue Unasyn 3 gm IV q.6 hours
Follow for clinical improvement.
For possible transfer to [facility] once bed available.
����������������������������������������������������������
Chief Complaint
-: Other (Left submandibular abscess)
Subjective / Review of Systems
Patient seen and examined. Reports ongoing left submandibular discomfort. No fevers or chills.
Vital Signs / Physical Exam
Vital Signs
Vital Signs
Temp Pulse Resp BP Pulse Ox
98.1 F 63 16 132/81 98
07/23/25 07:47 07/23/25 07:47 07/23/25 07:47 07/23/25 07:47 07/23/25 07:47
Physical Exam
Constitutional: Comfortable, Chronically Ill and Non-toxic
Eyes: Sclera Anicteric
Oropharyngeal: Other (Ongoing induration and marked swelling of the left submandibular area. Incision with scant drainage. Positive tenderness.)
Pulmonary: Clear and Non Labored
Gastrointestinal: Non Distended
Neurological: Awake
Psychological: Calm
Objective Data
Lab Data
Lab Results
07/22/25 05:01
07/22/25 05:01
PT 15.0 Sec (11.4-14.6) H 07/16/25 10:11
INR 1.15 07/16/25 10:11
APTT 30.6 Sec (23.4-35.0) 07/16/25 10:11
Estimated Creat Clear 124 ml/min 07/22/25 05:01
Lactic Acid Cancelled 07/16/25 14:15
Total Bilirubin 0.7 mg/dl (0.2-1.3) 07/16/25 10:11
AST 26 U/L (17-59) 07/16/25 10:11
ALT 30 U/L (0-50) 07/16/25 10:11
Alkaline Phosphatase 70 U/L (38-126) 07/16/25 10:11
Most recent labs reviewed.
Micro Results:
07/18/25 17:25 Wound Culture - 'oral marbella'
Abscess Gram Stain - Final
07/18/25 17:25 Anaerobic Culture - Final
Abscess Peptostreptococcus micros
Bacteroides denticola
07/16/25 20:20 Wound Culture - Final
Abscess Gram Stain - Final
07/16/25 20:20 Anaerobic Culture - Final
Abscess
07/16/25 11:32 Blood Culture - Final
Blood/Venous No Growth - Final Report
07/16/25 10:11 Blood Culture - Final
Blood/Venous No Growth - Final Report
Imaging:
07/21/2025 CT neck with IV contrast: Re-demonstration of severe subcutaneous edema and inflammatory change about the left jaw/lower cheek soft tissues with small amounts of gas and fluid tracking along the left inferolateral aspect of the mandible,
overall grossly stable from prior. Also similar phlegmon/soft tissue thickening about the left mandible both externally and internally, causing rightward deviation of the tongue base. No overt osseous erosive change.
07/18/2025 CT neck with IV contrast: the previously suspected abscess about the left mandibular body is progressed anteriorly but decreased posteriorly. Improved associated soft tissue swelling and edematous/inflammatory changes. Stable mass
effect. New tract in the subcutaneous tissues as described in body of dictation, likely from previous drains. Right FORMAT PROOFREADER shunt in place. Moderate hydrocephalus is noted and stable. Please see full dictation for additional detail.
07/16/2025 CT neck with IV contrast: findings suggestive of abscess formation and severe inflammation around the left mandibular body, with a noted rim-enhancing fluid collection approximately 2.0 x 0.7 x 1.8 cm. No associated bony destruction.
Please see full dictation for additional detail.
Care Review
Plan reviewed with: Physician (OMFS)
--- NOTE | 2025-07-23 13:37 | CM ---
CM noted on chart that pt is to be transferred to [place] for further management.
IMM provided and signed.
Plan: Transfer to [place] for further management per MD notes.
[2025-07-23 15:14] VITALS: BP 137/82
[2025-07-23] MEDS: LOVENOX 40 MG SC (18:27)
[2025-07-23] MEDS: SENOKOT-S PO ×2 (22:43→22:44)
[2025-07-23 23:24] VITALS: BP 128/80
[2025-07-24] MEDS: UNASYN IV ×5 (00:41→23:19)
[2025-07-24 07:00] VITALS: BP 126/80
[2025-07-24] MEDS: KEPPRA 250 MG PO ×2 (08:34→20:14)
[2025-07-24] MEDS: ONFI 15 MG PO ×3 (08:35→22:25)
[2025-07-24] MEDS: B COMPLEX w/VITAMIN C 1 CAPLET PO (08:35)
[2025-07-24] MEDS: VIMPAT 300 MG PO ×2 (08:35→20:28)
[2025-07-24] MEDS: SENOKOT-S 2 TABLET PO (08:36)
[2025-07-24] MEDS: DEPAKENE 500 MG PO ×2 (08:37→20:21)
[2025-07-24] MEDS: PERIDEX 0.12% ORAL RINSE 15 ML PO ×2 (08:37→20:21)
[2025-07-24] MEDS: FOLVITE 1 MG PO (08:37)
[2025-07-24] MEDS: VITAMIN B1 100 MG PO (08:37)
--- NOTE | 2025-07-24 11:33 | W.PN.ID1 ---
Date of Service
Date of Service: July 24, 2025
Today's Communication
Continue antibiotics
Assessment / Plan
Left submandibular abscess.
- S/p I&D x 2
- Discussed with lab. Few strep spp. on culture.
Leukocytosis; improved
HTN
Seizure disorder
Wernicke-Korsakoff syndrome
Epilepsy
Hx alcoholic use disorder
Alcoholic hepatitis
Normal pressure hydrocephalus
Hx subdural hematoma
Anxiety/depression
Peptic ulcer disease
Recommendations:
Prior leukocytosis resolved.
Patient is status post I&D x 2.
Induration persists.
Recovery of strep species and anaerobes on culture. No recovery of MRSA or Pseudomonas.
Continue Unasyn 3 gm IV q.6 hours
Follow for clinical improvement.
Awaiting transfer to [facility] once bed available.
����������������������������������������������������������
Chief Complaint
-: Other (Left submandibular abscess)
Subjective / Review of Systems
Patient seen and examined. Still reports left submandibular tenderness.
Review of Systems: No Fever and No Chills
Vital Signs / Physical Exam
Vital Signs
Vital Signs
Temp Pulse Resp BP Pulse Ox
97.8 F 65 18 126/80 98
07/24/25 07:00 07/24/25 07:00 07/24/25 07:00 07/24/25 07:00 07/24/25 07:00
Physical Exam
Constitutional: Comfortable, Chronically Ill and Non-toxic
Eyes: Sclera Anicteric
Oropharyngeal: Other (Ongoing induration and marked swelling of the left submandibular area. Incision with scant drainage. )
Pulmonary: Non Labored
Gastrointestinal: Non Distended
Neurological: Awake
Psychological: Calm
Objective Data
Lab Data
Lab Results
07/22/25 05:01
07/22/25 05:01
PT 15.0 Sec (11.4-14.6) H 07/16/25 10:11
INR 1.15 07/16/25 10:11
APTT 30.6 Sec (23.4-35.0) 07/16/25 10:11
Estimated Creat Clear 124 ml/min 07/22/25 05:01
Lactic Acid Cancelled 07/16/25 14:15
Total Bilirubin 0.7 mg/dl (0.2-1.3) 07/16/25 10:11
AST 26 U/L (17-59) 07/16/25 10:11
ALT 30 U/L (0-50) 07/16/25 10:11
Alkaline Phosphatase 70 U/L (38-126) 07/16/25 10:11
Most recent labs reviewed.
Micro Results:
07/18/25 17:25 Wound Culture - Final
Abscess Gram Stain - Final
07/18/25 17:25 Anaerobic Culture - Final
Abscess Peptostreptococcus micros
Bacteroides denticola
07/16/25 20:20 Wound Culture - Final
Abscess Gram Stain - Final
07/16/25 20:20 Anaerobic Culture - Final
Abscess
07/16/25 11:32 Blood Culture - Final
Blood/Venous No Growth - Final Report
07/16/25 10:11 Blood Culture - Final
Blood/Venous No Growth - Final Report
Imaging:
07/21/2025 CT neck with IV contrast: Re-demonstration of severe subcutaneous edema and inflammatory change about the left jaw/lower cheek soft tissues with small amounts of gas and fluid tracking along the left inferolateral aspect of the mandible,
overall grossly stable from prior. Also similar phlegmon/soft tissue thickening about the left mandible both externally and internally, causing rightward deviation of the tongue base. No overt osseous erosive change.
07/18/2025 CT neck with IV contrast: the previously suspected abscess about the left mandibular body is progressed anteriorly but decreased posteriorly. Improved associated soft tissue swelling and edematous/inflammatory changes. Stable mass
effect. New tract in the subcutaneous tissues as described in body of dictation, likely from previous drains. Right INSECT CONTROL AIDE shunt in place. Moderate hydrocephalus is noted and stable. Please see full dictation for additional detail.
07/16/2025 CT neck with IV contrast: findings suggestive of abscess formation and severe inflammation around the left mandibular body, with a noted rim-enhancing fluid collection approximately 2.0 x 0.7 x 1.8 cm. No associated bony destruction.
Please see full dictation for additional detail.
--- NOTE | 2025-07-24 12:24 | W.PN.HOSP.TC ---
Today's Communication/Plan
-
CW IV abx
Await transfer to [facility]
Assessment / Plan
Assessment / Plan
59-year-old male past medical history of alcohol use disorder, Warnicke Korsakoff syndrome, epilepsy, normal pressure hydrocephalus s/p SHOE STOCK ASSOCIATE shunt, parafalcine meningioma, history of subdural hematoma, hypertension, anxiety/depression, alcoholic
hepatitis, peptic ulcer disease, presenting with facial swelling. Vital signs show fever of 102.8. �Tachycardia up to 119. Labs show leukocytosis of 13. �CT neck shows abscess formation severe inflammation around the left mandible with large amount
of subcutaneous tissue swelling without subcutaneous emphysema. �There are dental caries. 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 �Blood cultures, n.p.o., IV fluids, Unasyn, oral surgeon
consulted and plan for OR tonight.
Sepsis secondary to submandibular abscess
-Appreciate oral surgery, s/p I & D of left submandibular abscess, extraction of teeth #19, 20, 21 on 07/16
-Status post repeat I&D of left submandibular abscess 07/18
-07/16 GS w/ strep, blood cultures negative to date
-07/18 GS w/ few WBC's, neg for organisms
-IV Unasyn changed to vancomycin and Zosyn 07/18, ID changed back to IV Unasyn 07/20
-Repeat neck CT 07/21 - Grossly stable phlegmon/abscess about the left mandibular body.
-Trend fever and white count
Seizure Disorder
-Continue clobazam, lacosamide, levetiracetam and valproic acid
Wernicke-Korsakoff Syndrome
-Continue thiamine and folic acid
Obesity due to excess calories
- Affects all aspects of care
Hx Alcohol Use Disorder - Patient sober since 2022
Hx Subdural Hematoma
Hx NPH s/p SHOE STOCK ASSOCIATE Shunt 2023
DVT proph: Lovenox
Code Status: Full Code
OMFS recommens transfer to [facility] for further treatments .
DW [facility] hospitalist behavioral modification assistant and OMFS behavioral modification assistant 07/22/25 - pt accepeted to hospitalist service.
Transfer pt when bed available
Anticipated Discharge: Today
Subjective/Interval History
-
Date of Service: July 24, 2025
Remains in pain from the left jaw area.
No fever or chills.
Tolerating diet.
Objective Data
-
Vital Signs:
Vital Signs
Temp Pulse Resp BP Pulse Ox
97.8 F 65 18 126/80 98
07/24/25 07:00 07/24/25 07:00 07/24/25 07:00 07/24/25 07:00 07/24/25 07:00
I&O
07/23/25 07/24/25 07/25/25
06:59 06:59 06:59
Intake Total 1919 186 / 186
Output Total 800 / 800
Balance 1919 1060 / 1060
Physical Exam
-
General: Comfortable
HEENT: Other (Induration and tenderness in left sudmandibular area )
Respiratory: Non Labored Respirations; Negative Accessory Resp Muscle Use
Cardiac: Negative Tachycardic
Neuro: AO x 3
[2025-07-24 15:18] VITALS: BP 121/80
[2025-07-24] MEDS: LOVENOX 40 MG SC (17:58)
--- NOTE | 2025-07-24 18:06 | W.PN.OMFS ---
Today's Communication
-
- Continue antibiotics
- Peridex rinses BID and continue oral hygiene
- Diet as tolerated
- Transfer to [place]
Assessment / Plan
-
59M 8 days s/p Incision and drainage of left submandibular abscess, extraction of teeth #19, 20, 21, 6 days s/p repeat left submandibular I&D with indurated swelling. He has been planned for transfer to [place].
Subjective Data
-
59M 8 days s/p Incision and drainage of left submandibular abscess, extraction of teeth #19, 20, 21, 6 days s/p repeat left submandibular I&D. He is tolerating his diet.
Objective Data
-
Vitals, I&O and Lab Results:
Vital Signs
Temp Pulse Resp BP Pulse Ox
37.2 C 91 18 121/80 94
07/24/25 15:18 07/24/25 15:18 07/24/25 15:18 07/24/25 15:18 07/24/25 15:18
Intake and Output
07/23/25 07/24/25 07/25/25
06:59 06:59 06:59
Intake Total 1919 / 1920 1860 / 1860
Output Total 800 / 800
Balance 1919 / 0 1060 / 1060
Intake:
Oral fluids 1680 / 1680 1620 / 1620
IV piggybacks 240 / 240 240 / 240
Output:
Urine, Voided 800 / 800
Other:
Number of approximated MODERATE 2
amounts of urine
How many times incontinent 1 3
SATURATED amount urine
Lab Data
07/22/25 05:01
07/22/25 05:01
Plt Count 344 10^3/uL (130-400) 07/22/25 05:01
Physical Exam
-
E/O: Indurated left buccal, submandibular, and submental swelling with overlying erythema. No purulence from incisions
I/O: Swelling of the left mandibular vestibule. No purulent drainage. FOM soft, some swelling along left lingual mandible
[2025-07-24] MEDS: SENOKOT-S PO (20:31)
[2025-07-24 23:24] VITALS: BP 146/87
[2025-07-25] MEDS: UNASYN IV ×4 (06:00→23:56)
[2025-07-25 06:32] LABS: Hematocrit 32.9 % (39.0-52.0); Hemoglobin 10.9 g/dL (13.0-18.0); Mean Corp Hgb Conc. 33.1 g/dL (33.0-37.0); Mean Corpuscular Volume 87.0 fL (80.0-94.0); Platelet Count 346 10^3/uL (130-400); Red Cell Dist. Width 13.9 % (11.5-14.5)
[2025-07-25 07:00] VITALS: BP 130/78
[2025-07-25 07:07] LABS: Blood Urea Nitrogen 13 mg/dl (9-20); Calcium 8.5 mg/dl (8.4-10.2); Carbon Dioxide 27 mmol/L (22-30); Chloride 104 mmol/L (98-107); Estimated Creatinine Clearance 109 ml/min; Glucose 91 mg/dl (70-99); Potassium 4.3 mmol/L (3.5-5.1); Sodium 137 mmol/L (135-145); eGFR > 60.00
[2025-07-25] MEDS: DEPAKENE 500 MG PO ×2 (07:51→20:32)
[2025-07-25] MEDS: ONFI 15 MG PO ×3 (07:51→22:07)
[2025-07-25] MEDS: KEPPRA 250 MG PO ×2 (07:51→20:33)
[2025-07-25] MEDS: VITAMIN B1 100 MG PO (07:58)
[2025-07-25] MEDS: PERIDEX 0.12% ORAL RINSE 15 ML PO ×2 (07:58→20:33)
[2025-07-25] MEDS: SENOKOT-S PO (07:58)
[2025-07-25] MEDS: FOLVITE 1 MG PO (07:58)
[2025-07-25] MEDS: B COMPLEX w/VITAMIN C 1 CAPLET PO (08:01)
[2025-07-25] MEDS: VIMPAT 300 MG PO ×2 (08:01→20:33)
--- NOTE | 2025-07-25 09:14 | W.PN.OMFS ---
Today's Communication
-
- Continue antibiotics
- Peridex rinses BID and continue oral hygiene
- Diet as tolerated
- Transfer to [place] for further management
Assessment / Plan
-
59M 9 days s/p Incision and drainage of left submandibular abscess, extraction of teeth #19, 20, 21, 7 days s/p repeat left submandibular I&D with persistent indurated swelling. Plan for transfer to [place] for further treatment.
Subjective Data
-
59M 9 days s/p Incision and drainage of left submandibular abscess, extraction of teeth #19, 20, 21, 7 days s/p repeat left submandibular I&D. He is tolerating his diet. He reports pain today in jaw
Objective Data
-
Vitals, I&O and Lab Results:
Vital Signs
Temp Pulse Resp BP Pulse Ox
36.4 C 58 18 130/78 96
07/25/25 07:00 07/25/25 07:00 07/25/25 07:00 07/25/25 07:00 07/25/25 07:00
Intake and Output
07/24/25 07/25/25 07/26/25
06:59 06:59 06:59
Intake Total 1860 / 1860 700 / 700 480 / 480
Output Total 800 / 800 100 / 100
Balance 1060 / 1060 600 / 600 480 / 480
Intake:
Oral fluids 1620 / 1620 700 / 700 480 / 480
IV piggybacks 240 / 240
Output:
Urine, Voided 800 / 800 100 / 100
Other:
Number of approximated MODERATE 2
amounts of urine
How many times incontinent 3 1 2
SATURATED amount urine
Lab Data
07/25/25 05:33
07/25/25 05:33
Plt Count 346 10^3/uL (130-400) 07/25/25 05:33
Physical Exam
-
E/O: Indurated left buccal, submandibular, swelling with overlying erythema. Submental swelling improved. No purulence from incisions
I/O: Swelling of the left mandibular vestibule. No purulent drainage. FOM soft, some swelling along left lingual mandible
--- NOTE | 2025-07-25 14:35 | W.PN.HOSP.TC ---
Today's Communication/Plan
-
Await transfer to [place]
Assessment / Plan
Assessment / Plan
59-year-old male past medical history of alcohol use disorder, Warnicke Korsakoff syndrome, epilepsy, normal pressure hydrocephalus s/p ROLL FINISHER shunt, parafalcine meningioma, history of subdural hematoma, hypertension, anxiety/depression, alcoholic
hepatitis, peptic ulcer disease, presenting with facial swelling. Vital signs show fever of 102.8. �Tachycardia up to 119. Labs show leukocytosis of 13. �CT neck shows abscess formation severe inflammation around the left mandible with large amount
of subcutaneous tissue swelling without subcutaneous emphysema. �There are dental caries. 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 �Blood cultures, n.p.o., IV fluids, Unasyn, oral surgeon
consulted and plan for OR tonight.
Sepsis secondary to submandibular abscess
-Appreciate oral surgery, s/p I & D of left submandibular abscess, extraction of teeth #19, 20, 21 on 07/16
-Status post repeat I&D of left submandibular abscess 07/18
-07/16 GS w/ strep, blood cultures negative to date
-07/18 GS w/ few WBC's, neg for organisms
-IV Unasyn changed to vancomycin and Zosyn 07/18, ID changed back to IV Unasyn 07/20
-Repeat neck CT 07/21 - Grossly stable phlegmon/abscess about the left mandibular body.
-Trend fever and white count
Seizure Disorder
-Continue clobazam, lacosamide, levetiracetam and valproic acid
Wernicke-Korsakoff Syndrome
-Continue thiamine and folic acid
Obesity due to excess calories
- Affects all aspects of care
Hx Alcohol Use Disorder - Patient sober since 2022
Hx Subdural Hematoma
Hx NPH s/p ROLL FINISHER Shunt 2023
DVT proph: Lovenox
Code Status: Full Code
OMFS recommendations from today noted-still recommends transfer to [place] for further management.
DW [facility] hospitalist security sales consultant and OMFS security sales consultant 07/22/25 - pt accepeted to hospitalist service.
Transfer pt when bed available
Anticipated Discharge: Today
Subjective/Interval History
-
Date of Service: July 25, 2025
Still with left jaw swelling but no fever or chills.
Tolerating diet without nausea or vomiting.
Objective Data
-
Labs:
Laboratory Results
07/25/25
05:33
WBC 4.8
Hgb 10.9 L
Hct 32.9 L
Plt Count 346
Sodium 137
Potassium 4.3
Chloride 104
Carbon Dioxide 27
BUN 13
Creatinine 0.8
Glucose 91
Calcium 8.5
Vital Signs:
Vital Signs
Temp Pulse Resp BP Pulse Ox
97.5 F 58 18 130/78 96
07/25/25 07:00 07/25/25 07:00 07/25/25 07:00 07/25/25 07:00 07/25/25 07:00
I&O
07/24/25 07/25/25 07/26/25
06:59 06:59 06:59
Intake Total 1860 / 1860 700 / 700 480 / 480
Output Total 800 / 800 100 / 100
Balance 1060 / 1060 600 / 600 480 / 480
Physical Exam
-
General: Comfortable
HEENT: Other (Persistent induration of submandibular area)
Respiratory: Non Labored Respirations; Negative Accessory Resp Muscle Use
Cardiac: Regular Rhythm and S1/S2
GI: Soft
Neuro: AO x 3
Psych: Calm
Data Reviewed
-
Labs: Labs Reviewed by me
[2025-07-25 15:00] VITALS: BP 125/77
[2025-07-25] MEDS: LOVENOX 40 MG SC (17:19)
[2025-07-25] MEDS: SENOKOT-S 2 TABLET PO (20:32)
[2025-07-25 23:40] VITALS: BP 141/84
[2025-07-25] MEDS: TYLENOL 650 MG PO (23:55)
[2025-07-26] MEDS: UNASYN IV ×2 (05:42→12:20)
[2025-07-26 07:00] VITALS: BP 127/79
[2025-07-26] MEDS: VITAMIN B1 100 MG PO (07:54)
[2025-07-26] MEDS: B COMPLEX w/VITAMIN C 1 CAPLET PO (07:54)
[2025-07-26] MEDS: FOLVITE 1 MG PO (07:54)
[2025-07-26] MEDS: ONFI 15 MG PO ×2 (07:54→17:08)
[2025-07-26] MEDS: SENOKOT-S 2 TABLET PO (07:54)
[2025-07-26] MEDS: DEPAKENE 500 MG PO (07:54)
[2025-07-26] MEDS: VIMPAT 300 MG PO (07:55)
[2025-07-26] MEDS: PERIDEX 0.12% ORAL RINSE 15 ML PO (07:56)
[2025-07-26] MEDS: KEPPRA 250 MG PO (07:56)
--- NOTE | 2025-07-26 10:57 | W.PN.HOSP.TC ---
Addendum entered and electronically signed by Mateo Salazar MD 07/26/25 15:53:
CT of of the neck report from today shows Resolved abscess about the left mandibular body.Mildly improved moderate surrounding inflammatory change.
Discussed with Dr. Bee-OR cancelled advises to continue with antibiotics and she will follow-up with him in office next Tuesday.
Discussed with ID-recommends switch to oral Augmentin for 2 more weeks.
Will DC patient home today.
Original Note:
Today's Communication/Plan
-
OR today
Assessment / Plan
Assessment / Plan
59-year-old male past medical history of alcohol use disorder, Warnicke Korsakoff syndrome, epilepsy, normal pressure hydrocephalus s/p STAPLING MACHINE OPERATOR shunt, parafalcine meningioma, history of subdural hematoma, hypertension, anxiety/depression, alcoholic
hepatitis, peptic ulcer disease, presenting with facial swelling. Vital signs show fever of 102.8. �Tachycardia up to 119. Labs show leukocytosis of 13. �CT neck shows abscess formation severe inflammation around the left mandible with large amount
of subcutaneous tissue swelling without subcutaneous emphysema. �There are dental caries. 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 �Blood cultures, n.p.o., IV fluids, Unasyn, oral surgeon
consulted and plan for OR tonight.
Sepsis secondary to submandibular abscess
-Appreciate oral surgery, s/p I & D of left submandibular abscess, extraction of teeth #19, 20, 21 on 07/16
-Status post repeat I&D of left submandibular abscess 07/18
-07/16 GS w/ strep, blood cultures negative to date
-07/18 GS w/ few WBC's, neg for organisms
-IV Unasyn changed to vancomycin and Zosyn 07/18, ID changed back to IV Unasyn 07/20
-Repeat neck CT 07/21 - Grossly stable phlegmon/abscess about the left mandibular body.
-Trend fever and white count
- OMFS yesterday reviewed the patient and since the transfer is taking time they have put him on the OR schedule today for incision and drainage. CT of the neck with IV contrast requested the report of which is pending.
Seizure Disorder
-Continue clobazam, lacosamide, levetiracetam and valproic acid
Wernicke-Korsakoff Syndrome
-Continue thiamine and folic acid
Obesity due to excess calories
- Affects all aspects of care
Hx Alcohol Use Disorder - Patient sober since 2022
Hx Subdural Hematoma
Hx NPH s/p STAPLING MACHINE OPERATOR Shunt 2023
DVT proph: Lovenox
Code Status: Full Code
Hold transfer to [place] as OM is planning to do incision and drainage today here at [facility].
Anticipated Discharge: > 48 hours
Subjective/Interval History
-
Date of Service: July 26, 2025
Still with induration of the left submandibular area.
No fever or chills. Denies swallowing difficulty. Denies shortness of breath.
Objective Data
-
Vital Signs:
Vital Signs
Temp Pulse Resp BP Pulse Ox
97.4 F 51 18 127/79 100
07/26/25 07:00 07/26/25 07:00 07/26/25 07:00 07/26/25 07:00 07/26/25 07:00
I&O
07/25/25 07/26/25 07/27/25
06:59 06:59 06:59
Intake Total 700 / 700 1180 / 1180
Output Total 100 / 100 150 / 150 750 / 750
Balance 600 / 600 1030 / 1030 -750 / -750
Physical Exam
-
General: Comfortable
HEENT: Other (Indurated and tender left submandibular area)
Respiratory: Non Labored Respirations; Negative Accessory Resp Muscle Use
Neuro: AO x 3
--- NOTE | 2025-07-26 11:22 | CM ---
CM following re: discharge planning.
Reviewed pt's chart.
Per chart review, hold transfer to [place] as OMFS is planning to do incision and drainage today here at [facility].
Per CM note, pt resides with his roommate Socorro in a 3 story home with three steps to enter. Soocrro is his 24 hr private caregiver who assists him with meals and drives him to medical appointments. Socorro works as an [employer] driver supervisor however says he is there
with the patient most of the time and has flexibility with his work.
D/C plan: uncertain at this time and will depend on plan of care
CM will follow with discharge plan updates as hospitalization progresses
--- NOTE | 2025-07-26 11:24 | W.PN.ID1 ---
Date of Service
Date of Service: July 26, 2025
Today's Communication
Continue antibiotics
Assessment / Plan
Left submandibular abscess.
- S/p I&D x 2
- Discussed with lab. Few strep spp. on culture.
Leukocytosis; improved
HTN
Seizure disorder
Wernicke-Korsakoff syndrome
Epilepsy
Hx alcoholic use disorder
Alcoholic hepatitis
Normal pressure hydrocephalus
Hx subdural hematoma
Anxiety/depression
Peptic ulcer disease
Recommendations:
Induration persists.
Recovery of strep species and anaerobes on culture. No recovery of MRSA or Pseudomonas.
CT scan shows improvement/resolution of prior fluid collection although inflammation persists, but slightly improved.
Continue Unasyn 3 gm IV q.6 hours
For potential OR later today
����������������������������������������������������������
Chief Complaint
-: Other (Left submandibular abscess)
Subjective / Review of Systems
Review of Systems: No Fever and No Chills
Vital Signs / Physical Exam
Vital Signs
Vital Signs
Temp Pulse Resp BP Pulse Ox
97.4 F 51 18 127/79 100
07/26/25 07:00 07/26/25 07:00 07/26/25 07:00 07/26/25 07:00 07/26/25 07:00
Physical Exam
Constitutional: Comfortable, Chronically Ill and Non-toxic
Eyes: Sclera Anicteric
Oropharyngeal: Other (Ongoing induration and marked swelling of the left submandibular area, although appears stable. Incision with scant drainage. )
Pulmonary: Non Labored
Gastrointestinal: Non Distended
Neurological: Awake
Psychological: Calm
Objective Data
Lab Data
Lab Results
07/25/25 05:33
07/25/25 05:33
PT 15.0 Sec (11.4-14.6) H 07/16/25 10:11
INR 1.15 07/16/25 10:11
APTT 30.6 Sec (23.4-35.0) 07/16/25 10:11
Estimated Creat Clear 109 ml/min 07/25/25 05:33
Lactic Acid Cancelled 07/16/25 14:15
Total Bilirubin 0.7 mg/dl (0.2-1.3) 07/16/25 10:11
AST 26 U/L (17-59) 07/16/25 10:11
ALT 30 U/L (0-50) 07/16/25 10:11
Alkaline Phosphatase 70 U/L (38-126) 07/16/25 10:11
Most recent labs reviewed.
Micro Results:
07/18/25 17:25 Wound Culture - Final
Abscess Gram Stain - Final
07/18/25 17:25 Anaerobic Culture - Final
Abscess Peptostreptococcus micros
Bacteroides denticola
07/16/25 20:20 Wound Culture - Final
Abscess Gram Stain - Final
07/16/25 20:20 Anaerobic Culture - Final
Abscess
07/16/25 11:32 Blood Culture - Final
Blood/Venous No Growth - Final Report
07/16/25 10:11 Blood Culture - Final
Blood/Venous No Growth - Final Report
Imaging:
07/26/2025 CT neck with IV contrast: There is complete opacification the right maxillary sinus. There is mild mucosal thickening in the left maxillary sinus. The previously seen fluid collection surrounding the left mandibular body and small pockets
of air have resolved. There remains moderate increased density to surrounding subcutaneous tissues suggesting inflammation. This is mildly improved. This causes mild displacement of the airway to the left which is stable. No significant
lymphadenopathy is noted. The salivary glands are within normal limits. There is severe disc space narrowing at C5/C6 and C6/C7. There is a less than grade 1 anterolisthesis of C4 on C5 and retrolisthesis of C5 on C6 and C6 on C7.
07/21/2025 CT neck with IV contrast: Re-demonstration of severe subcutaneous edema and inflammatory change about the left jaw/lower cheek soft tissues with small amounts of gas and fluid tracking along the left inferolateral aspect of the mandible,
overall grossly stable from prior. Also similar phlegmon/soft tissue thickening about the left mandible both externally and internally, causing rightward deviation of the tongue base. No overt osseous erosive change.
07/18/2025 CT neck with IV contrast: the previously suspected abscess about the left mandibular body is progressed anteriorly but decreased posteriorly. Improved associated soft tissue swelling and edematous/inflammatory changes. Stable mass
effect. New tract in the subcutaneous tissues as described in body of dictation, likely from previous drains. Right SURFACING TECHNICIAN shunt in place. Moderate hydrocephalus is noted and stable. Please see full dictation for additional detail.
07/16/2025 CT neck with IV contrast: findings suggestive of abscess formation and severe inflammation around the left mandibular body, with a noted rim-enhancing fluid collection approximately 2.0 x 0.7 x 1.8 cm. No associated bony destruction.
Please see full dictation for additional detail.
--- NOTE | 2025-07-26 13:02 | W.PN.OMFS ---
Today's Communication
-
- Continue antibiotics per ID
- Peridex rinses BID and continue oral hygiene
- Follow-up scheduled 07/30
Assessment / Plan
-
59M 10 days s/p Incision and drainage of left submandibular abscess, extraction of teeth #19, 20, 21, 8 days s/p repeat left submandibular I&D with some clinical improvement in swelling. He was planned for transfer to [place], however this has been
delayed due to bed availability. A CT was done today to reassess the collection, and at this time there is no drainable collection, with some improvement in the surrounding inflammatory changes. Plan for discharge to home with close outpatient
follow-up for continued resolution. I reviewed return precautions with the patient
Subjective Data
-
59M 10 days s/p Incision and drainage of left submandibular abscess, extraction of teeth #19, 20, 21, 8 days s/p repeat left submandibular I&D. He is tolerating his diet.
Objective Data
-
Vitals, I&O and Lab Results:
Vital Signs
Temp Pulse Resp BP Pulse Ox
36.3 C 51 18 127/79 100
07/26/25 07:00 07/26/25 07:00 07/26/25 07:00 07/26/25 07:00 07/26/25 07:00
Intake and Output
07/25/25 07/26/25 07/27/25
06:59 06:59 06:59
Intake Total 700 / 700 1180 / 1180
Output Total 100 / 100 150 / 150 750 / 750
Balance 600 / 600 1030 / 1030 -750 / -750
Intake:
Oral fluids 700 / 700 1180 / 1180
Output:
Urine, Voided 100 / 100 150 / 150 750 / 750
Other:
How many times incontinent 1 2
SATURATED amount urine
Lab Data
07/25/25 05:33
07/25/25 05:33
Plt Count 346 10^3/uL (130-400) 07/25/25 05:33
Physical Exam
-
E/O: Indurated left buccal and submandibular swelling with no overlying erythema. Improvement in submandibular and submental swelling. No purulence from incisions
I/O: Some improvement in swelling of the left mandibular vestibule. No purulent drainage. FOM soft
Data Reviewed
-
CT Scan: Image personally reviewed and interpreted and Report reviewed by me (IMPRESSION: Resolved abscess about the left mandibular body. Mildly improved moderate surrounding inflammatory change.)
[2025-07-26 15:00] VITALS: BP 122/81
--- NOTE | 2025-07-26 15:57 | W.DCSUMMARY ---
Discharge Summary
Discharge Data
Date of Admission: 07/16/25
Date of Discharge: 07/26/25
-
Pending Results: No
Hospital Course
Primary diagnosis:
Left submandibular abscess
Secondary diagnosis:
History of alcohol use disorder
Wernicke's Korsakoff syndrome
Epilepsy
Normal pressure hydrocephalus status post NURSERY SUPERVISOR shunt
Parafalcine meningioma
History of subdural hematoma
Hypertension
Anxiety/depression
Hospital course:
Patient presented with left facial swelling and discovered to have left submandibular abscess without subcutaneous emphysema. And associated sepsis. This shows of his left submandibular abscess was consistent with odontogenic infection. Was seen
by oral maxillofacial surgery had incision and drainage of left submandibular abscess and extraction of teeth 19, 20, 21. He needed incision and drainage twice. Today his repeat CT neck shows resolution of his abscess and improved surrounding
inflammatory changes. Culture showed Peptostreptococcus micros and bacteroids Den[place]ola. Was seen by ID initially was treated with Unasyn and was switched to oral Augmentin to complete 2 more weeks of treatment. Oral maxillofacial surgery will
follow-up with him next week on Tuesday. He was deemed stable for discharge today
Consultants on board:
Infectious disease-Luis Miguel Hadley
Oral maxillofacial surgery-Tea Sahu
Discharge Plan
-
Patient Disposition: Home (Routine Discharge)
Discharge Diagnosis/Procedures: Left submandibular abscess status post incision and drainage
Diet: As tolerated
Activity: As tolerated
Driving Restrictions: As prior to admission
Bathing Restrictions: None
Referrals:
Adeline Bee DDS [Active, Oral Surgery] - 07/30/25 10:00 am
Referral Note: Your appointment is scheduled in my [place] location at [address] [facility], [place], [address] [place] [address]
Capriec Mc DO [Family Provider, Family Practice] - in less than 1 week
Prescriptions:
New
chlorhexidine gluconate 0.12 % Mouthwash
15 ml PO BID Qty: 300 0RF
acetaminophen 325 mg Tablet
650 mg PO Q4HPRN PRN (Reason: mild pain/ fever>100.5F) Qty: 1 0RF
amoxicillin-pot clavulanate 875-125 mg tablet
1 tab PO BID Qty: 28 0RF
Continued
vitamin B complex Tablet Extended Release
1 tab PO DAILY
thiamine HCl (vitamin B1) 100 mg Tablet
100 mg PO DAILY
lacosamide 150 mg tablet
300 mg PO BID
clobazam 10 mg tablet
15 mg PO TID
valproic acid 250 mg capsule
500 mg PO BID Qty: 60 0RF
acetaminophen 325 mg Tablet
325 mg PO Q4HPRN PRN (Reason: mild pain)
folic acid 1 mg Tablet
1 mg PO DAILY
levetiracetam [Keppra] 250 mg Tablet
250 mg PO BID
Discharge Orders:
Discharge Patient (As Directed); Ordered 07/23/25
Ordered By: Mateo Salazar
Discharge Date and Time
Print Language: [place]
[2025-07-26] MEDS: LOVENOX 40 MG SC (17:09)
== END 2025-07-26 18:11 | disposition home or self-care (01) | DRG 872 ==
LOC: 3 WEST ACU 15:20
PROVIDERS: Family Medicine; Physician Assistant; Physician Assistant Medical; ADMITTING PHYSICIAN Hospitalist; ATTENDING PHYSICIAN Internal Medicine; CONSULT PHYSICIAN Dentist Oral and Maxillofacial Surgery; CONSULT PHYSICIAN Internal Medicine Infectious Disease; EMERGENCY PHYSICIAN Emergency Medicine; FAMILY PHYSICIAN Family Medicine
PROC: 0CDXXZ1 Extraction of Lower Tooth, Multiple, External Approach (ICD-10-PCS; 2025-07-16)
PROC: 0J9100Z Drainage of Face Subcutaneous Tissue and Fascia with Drainage Device, Open Approach (ICD-10-PCS; 2025-07-16)
DX: A41.9 Sepsis, unspecified organism (principal); G91.2 (Idiopathic) normal pressure hydrocephalus; G91.9 Hydrocephalus, unspecified; K12.2 Cellulitis and abscess of mouth; K04.7 Periapical abscess without sinus; I10 Essential (primary) hypertension; G40.909 Epilepsy, unspecified, not intractable, without status epilepticus; G47.33 Obstructive sleep apnea (adult) (pediatric); D32.0 Benign neoplasm of cerebral meninges; K02.9 Dental caries, unspecified; K21.9 Gastro-esophageal reflux disease without esophagitis; E66.09 Other obesity due to excess calories; F10.11 Alcohol abuse, in remission; F32.A Depression, unspecified; F41.9 Anxiety disorder, unspecified; K70.10 Alcoholic hepatitis without ascites; M27.2 Inflammatory conditions of jaws; I71.20 Thoracic aortic aneurysm, without rupture, unspecified; Z87.891 Personal history of nicotine dependence; Z98.2 Presence of cerebrospinal fluid drainage device; Z87.11 Personal history of peptic ulcer disease; Z68.31 Body mass index [BMI] 31.0-31.9, adult
CPT/HCPCS: 70491; 80048; 80053; 83605; 83735; 85025; 85027; 85610; 85730; 87040; 87070; 87075; 87076; 87185; 87205; 96361; 96365; 96375; 96376; 99284; Q9967

== ENCOUNTER 2025-09-15 19:05 | Inpatient (IN) | payer MEDICARE, SELFPAY ==
[2025-09-15] VITALS (8 sets, daily range): BP systolic 92–124; BP diastolic 62–84; BMI 29.4; BMI 30.9
[2025-09-15 14:16] LABS: Glucose - Point of Care 111 mg/dl (70-99)
[2025-09-15] MEDS: NSS 1000 IV ×3 (14:16→21:13)
--- NOTE | 2025-09-15 14:22 | ED.GENMED ---
History of Present Illness
General
Chief Complaint: Seizure
Time Seen by Provider: 09/15/25 14:08
History of Present Illness
History of Present Illness:
59-year-old male with history of epilepsy, Wernicke-Korsakoff syndrome, HTN, subdural hemorrhage in 2019, L parafalcine meningioma, alcoholic hepatitis presenting to the emergency department for seizure. Patient arrives by medics. Medics were
called house for seizure activity. Per medics, patient had been seizing on and off for about 20 minutes prior to arrival. They administered 10 mg of Versed with improvement of symptoms. They note that patient has been out of one of his seizure
medications for 2 days. He is on Keppra, Vimpat, clobazam and was out of the clobazam. Per son, patient has not drank alcohol for 2 years. Patient limited story and, postictal on arrival. No additional history obtained at this time
Past History
Past History
ED Past Medical History: HTN, Seizures, Other (Alcohol intoxication with hallucinations, Dizziness, GI bleeding due to Ulcers) and Other; Negative Asthma, Hypercholesterolemia or NIDDM
ED Past Surgical History: None
Social History
Tobacco: Former smoker
Alcohol: Former ([employer] 4 during the week and 6 on the weekends None since March 2023)
Drug: None
Personal:
Living: with family
Employment: Not employed
Family History
Family History: Other (Noncontributory)
Phy Exam
Physical Exam
Physical Exam:
General: Postictal
HEENT: protecting airway, pupils equal and reactive
Neck: appears supple
CV: Tachycardic, regular rhythm
Resp: No accessory muscle use, no increased work of breathing, lungs clear to auscultation bilaterally
Abd: No distention
Extremities: No deformities, no swelling, no erythema
Neuro: Postictal, not currently following commands, however responsive to painful stimuli bilaterally
: deferred
Rectal: deferred
Psych: Normal affect
Skin: Intact
Scores
NIH Stroke Score
Level of Consciousness: 0 - Alert
LOC Questions: 0-Answers both correctly
LOC Commands: 0-Performs both correctly
Best Horizontal Gaze: 1-Partial gaze palsy
Visual Gleason: 1=Partial hemianopia
Facial Palsy: 1=Minor paralysis
Motor - Right Arm: 0=No drift 10 seconds
Motor - Left Arm: 4=No movement
Motor - Right Le-No drift 5 seconds
Motor - Left Le-No movement
Limb Ataxia: 2-Present in two limbs
Sensation: 0-Normal
Best Language: 0-No aphasia
Dysarthria: 0-Normal
Extinction and Inattention: 1-Sensory inattention
NIH Total Score:: 14
Course
Orders/Labs/Results
Orders:
Orders
09/15/25 14:14
CT Head W/o Iv Contrast Urgent
Comment:
Reason For Exam: seizure, AMS
Urinalysis Reflex To Culture Urgent
Urine Drug Abuse Screen Urgent
0.9% Sodium Chloride 1000 ml [Nss] 1,000 ml IV BOLUS
09/15/25 14:17
Alcohol Urgent
Basic Metabolic Panel Urgent
Comment: BMP NO K
Complete Blood Count/With Diff Urgent
PTT Urgent
Prothrombin Time Urgent
Troponin I Urgent
09/15/25 14:52
Electrocardiogram (*1) Urgent
Reason for Study: Other
Other Reason for Exam: seizure
EKG- Treatment ONCE
09/15/25 15:07
CT HEAD/NECK ANG STROKE ALERT Urgent
Reason For Exam: L-sided weakness
09/15/25 15:11
CT BRAIN PERF STROKE ALERT Stat
Reason For Exam: weakness L
09/15/25 15:58
EEG Routine Routine
Reason for Exam: seizure
Urinalysis Routine
MR Brain W/o & With Contrast Routine
Comment:
Reason For Exam: focal seizure
OK for patient to be off Cardiac Monitoring for MRI: No
Recent pill cam endoscopy?: No
09/15/25 16:17
0.9% Sodium Chloride 1000 ml [Nss] 1,000 ml IV BOLUS
09/15/25 16:42
Acetaminophen [Tylenol] 1,000 mg .ROUTE .STK-MED ONE
09/15/25 16:48
Acetaminophen [Tylenol] 1,000 mg PO NOW STA
09/15/25 16:53
Free T4 Routine
Magnesium Routine
TSH Reflex To Free T4 Routine
Total CK [Creatine Phosphokinase] Routine
09/15/25 18:31
Admit/Transfer Patient As Directed
Co-Sign Provider:
Level of Care: Inpatient admission
Assign to:: Telemetry
Physician / Group: Perla/Hospitalist
Diagnosis: Seizure, left-sided weakness, possible CVA
Reason for Telemetry: CVA/TIA
Date to Stop Telemetry: 09/18/25
Time to Stop Telemetry: 11:00
Reason for Hospitalization: Seizure, left-sided weakness, possible CVA
Expected length of stay greater than two midnights?: Yes
ELOS- Estimated Length of Stay in days: 3
I certify the patient meets the requirements for IP care: Yes
PRN Pain Medication Management As Directed
May give lesser potent ordered pain med per pt: Yes
preference::
Protocol:: Medication orders for pain may be administered in a
manner that supports deferring to patient preference
when the pt is:
- Requesting an ordered lesser potent pain medication.
Least to most potent pain medications are defined
as: acetaminophen < NSAID < tramadol < opioids
(morphine, oxycodone, hydromorphone).
- Requesting a lesser dose of the same medication IF
ORDERED.
- Requesting a less intrusive route of administration
if both routes are prescribed by the provider (PO <
IV).
09/15/25 18:34
Code Status As Directed
Resuscitation Status: Full Code
09/15/25 20:20
Acetaminophen [Tylenol/Feverall] 650 mg RECTAL Q4HPRN PRN
Acetaminophen [Tylenol] 650 mg PO Q4HPRN PRN
Aspirin 325 mg PO NOW STA
Valproic Acid [Depakene] 500 mg PO BID
09/15/25 20:20
Case Management Consult ONCE
Case Management Consult: Discharge Planning
Comment: stroke/tia
DIETARY IP CONSULT Routine
Reason for Consult: stroke/TIA
NEUROLOGY CONSULT Urgent
Consulting Provider: Kassi Sykes
Was physician already notified: Yes
Reason for consult: Seizure, left-sided weakness
Manager Steel Urgent
Activity As Directed
Activity Level: With Assistance
NIH Stroke Scale As Directed
Directions: Per protocol
Comment: every shift and with any change in condition or mental status
Neurological Checks As Directed
Frequency: q4h
Additional Instructions:: q4h x 24h upon admission to the floor, then qshift & with any change in condition
and mental status
Patient Education As Directed
Type: Stroke education packet
Comment: provide to patient and family
Pneumatic Compression Sleeves As Directed
Type: Knee high
Precautions As Directed
Type of Precautions: Seizure
Swallow Screening CVA/TIA ONLY As Directed
Comment: NPO until swallowing screening completed
If patient FAILS swallow screening:: NPO, Speech Therapy consult, Aspiration Precautions
If patient PASSES swallow screening, diet:: Cholesterol Lowering
Vital Signs As Directed
Frequency: Per unit guidelines
Ot Eval And Treat Routine
Pt Eval And Treat Routine
Activity Level: With Assistance
Speech Therapy Eval & Treat Routine
DX Deep Vein Thrombosis Video Routine
09/15/25 20:30
Lacosamide [Vimpat] 300 mg PO BID
09/15/25 21:00
Levetiracetam [Keppra] 500 mg PO BID
09/15/25 22:00
Clobazam (Non-Form) [Onfi] 15 mg PO TID
09/16/25 06:00
Cardiovascular Evaluation IN AM
09/16/25 08:00
Aspirin Chewable [Low Strength Aspirin] 81 mg PO DAILY
FOLic ACID [Folvite] 1 mg PO DAILY
Thiamine HCl [Vitamin B1] 100 mg PO DAILY
Vitamin B Complex with C [B COMPLEX w/VITAMIN C] 1 caplet PO DAILY
09/18/25 11:00
DC Protocol for Telemetry ONCE
Abnormal Lab Results
09/15/25 09/15/25 09/15/25
14:15 14:17 16:53
WBC 12.1 H 10^3/uL
(4.8-10.8)
MCHC 32.6 L g/dL
(33.0-37.0)
Abs Immat Gran (auto) 0.1 H 10^3/uL
(0-0.05)
Absolute Neuts (auto) 10.2 H 10^3/uL
(1.4-6.5)
Absolute Lymphs (auto) 0.7 L 10^3/uL
(1.2-3.4)
Absolute Monos (auto) 1.1 H 10^3/uL
(0.1-0.6)
Neutrophils % 84.6 H %
(42.2-75.2)
Lymphocytes % 5.5 L %
(20.5-51.1)
PT 15.0 H Sec
(11.4-14.6)
APTT 19.5 L Sec
(23.4-35.0)
Carbon Dioxide 20 L mmol/L
(22-30)
BUN 24 H mg/dl
(9-20)
Creatinine 1.4 H mg/dL
(0.7-1.3)
Glucose 118 H mg/dl
(70-99)
Magnesium 2.4 H mg/dl
(1.6-2.3)
Creatine Kinase 353 H U/L
(55-170)
Troponin I 0.068 H* ng/ml
TSH (Reflex) 0.41 L uIU/ml
(0.47-4.68)
POC Glucose 111 H mg/dl
(70-99)
09/15/25 14:17
09/15/25 14:17
Vital Signs
Initial and Last Documented VS:
Initial Vital Signs
Temp Pulse Resp BP Pulse Ox
98.5 F 113 24 120/66 97
09/15/25 14:09 09/15/25 14:09 09/15/25 14:09 09/15/25 14:09 09/15/25 14:09
Last Documented Vital Signs
Temp Pulse Resp BP Pulse Ox
99.1 F 80 12 105/69 96
09/15/25 20:30 09/15/25 20:30 09/15/25 20:30 09/15/25 20:30 09/15/25 20:40
MDM/Problems Addressed
MDM/Problems Addressed:
59-year-old male with history of epilepsy, Wernicke-Korsakoff syndrome, HTN, subdural hemorrhage in 2020, L parafalcine meningioma, alcoholic hepatitis presenting for a seizure. Vitals on arrival are significant for tachycardia.
On exam, patient is postictal on arrival, received 10 mg of Versed prior to arrival. No current seizure activity. Suspect possible breakthrough seizure secondary to noncompliance with medication, ran out of his clobazam allegedly by son. Per
pharmacy, medication was last filled about 2 months ago. Also history of alcohol withdrawal and alcohol induced seizure, however per son, allegedly has not drank for 2 years. Plan for laboratory analysis and CT brain imaging.
15:15 - Patient is now awake and alert. Believes that he had 2 seizures prior to arrival last seizure was about 3 months ago. He reports that he has been taking his Onfi because the pharmacy has been out of it. On reassessment neurologically,
patient is not moving his left upper and lower extremity, and appears to be neglecting the left side. Sensation is still intact. Patient does note that he has had weakness after seizures in the past. However, given diagnostic consideration of
stroke, stroke alert called with neurology at bedside. Plan for CT angio and CT perfusion
16:10 -CT angio without acute abnormality. In discussion with neuro, no TNK with suspicion for deficits from stroke. Patient's buggyman arrived and notes that this typically does happen after patient has a seizure, with left-sided paralysis and
recovery after a few days. Plan for admission for continued monitoring and neurologic consultation
*Pulse Oximetry
SaO2: 97
Oxygen Mode of Delivery: Room air
Patient hypoxic: no
*EKG
Interpreted by ED Provider?: Yes
EKG Intrepretation Date: 09/15/25
EKG Intrepretation Time: 16:12
Interpretation: normal
Comparison EKG: no changes
Heart Rate: 87
Rate: normal
Rhythm: sinus
[place]: left axis deviation
Interval: normal interval
QRS Pattern: right bundle branch block
Ischemia: no ischemia
*Critical Care Note
Total Time (30-74mins, 75-104mins- exclusive of procedures): 60
comment:
The high probability of a clinically significant, sudden or life threatening deterioration of the neurologic system(s) required my full and direct attention, intervention and personal management. The aggregate critical care time was 60 minutes. This
time is in addition to time spent performing reported procedures but includes the following:
[x] Data Review and interpretation
[x] Patient assessment and monitoring of vital signs
[x] Documentation
[x] Medication orders and management
ED Attending Note
-
Portions of this chart may have been created with voice recognition software.� Occasional wrong word or��sound alike� substitutions may have occurred due to the inherent limitations of voice recognition software.
Discharge Plan
Departure
Patient Disposition: Admit
Date of Disposition: 09/15/25
Time of Disposition: 16:17
Presentation/result/management discussed w/ accepting MD/DO: Hospitalist
Patient with high blood pressure during this ER visit?: No
Condition: Fair
Discharge Problem:
Seizure, Left-sided weakness
Interventions
Interventions:
*Risk Screen - Suicide Last Done: 09/15/25 20:48
*General Assessment Last Done: 09/15/25 14:07
*Neglect/Abuse Screening Last Done: 09/15/25 14:09
*ED- Fall Risk Assessment Last Done: 09/15/25 19:08
*ED COVID-19 Vaccine History Last Done: 09/15/25 20:48
*ED Influenza Vaccine History Last Done: 09/15/25 14:09
*Nursing Disposition Last Done: 09/15/25 20:18
ED- Cardiac Assessment Last Done: 09/15/25 19:08
ED- Neurological Assessment Last Done: 09/15/25 19:08
ED- Pulmonary Assessment Last Done: 09/15/25 19:08
Discharge Date and Time
Discharge Date/Time: 09/15/25 20:18
[2025-09-15 14:25] LABS: Hematocrit 43.9 % (39.0-52.0); Hemoglobin 14.3 g/dL (13.0-18.0); Mean Corp Hgb Conc. 32.6 g/dL (33.0-37.0); Mean Corpuscular Volume 88.7 fL (80.0-94.0); Nucleated Red Blood Cells % 0 % (-); Platelet Count 219 10^3/uL (130-400); Red Cell Dist. Width 13.2 % (11.5-14.5)
[2025-09-15 14:38] LABS: APTT 19.5 Sec (23.4-35.0)
[2025-09-15 14:46] LABS: Blood Urea Nitrogen 24 mg/dl (9-20); Calcium 9.6 mg/dl (8.4-10.2); Carbon Dioxide 20 mmol/L (22-30); Chloride 102 mmol/L (98-107); Glucose 118 mg/dl (70-99); Sodium 135 mmol/L (135-145); eGFR 57.18
[2025-09-15 14:51] LABS: Troponin I 0.068 ng/ml
[2025-09-15 14:56] LABS: INR 1.15; PT 15.0 Sec (11.4-14.6)
--- NOTE | 2025-09-15 15:32 | CON.NEURO ---
Consultation
Order
Date of Consultation: 09/15/25
Requesting Provider: Dr. Gaby Stout
Reason for Consult: Stroke alert
Called in: 15:07
Neurology Consultation Note.
HPI: This is a 59-year-old man who presented to [facility] on 09/15/2025 with recurrent seizures. According to EMR patient has had fluctuating seizures for 20 minutes before paramedics were called. He received 10 mg of Versed. The
patient indicates he run out of Onfi due to medication availability at his pharmacy.
He reports that left-sided weakness sometimes occurs after his seizures, stating this weakness happens 'just on a seizure' and 'after the seizure.' His last seizure prior to this episode was approximately 3 months ago.
ER VS: 120/66, 113, afebrile
EKG: Pending
PDMP:Lacosamide 150 Mg 120 tablets filled in on 08/21/2025, clobazam 10 mg 135 tablets filled in on 07/12/2025, 05/14/2025, 03/07/2025
Lacosamide 150 Mg 360 tablets filled in on 03/11/2025
Labs: WBCs�12.1, glucose�118, normal sodium, creatinine�1.4, EtOH�negative
CT head wo contrast-right ventriculoperitoneal shunt, atrophy. No acute infarct
PMH: L parafalcine meningioma, Focal epilepsy, h/o SDH (2019), NPH, alcohol use disorder, Wernicke-Korsakoff syndrome, HTN, DLP, IGT, PUD, h/o Left mandibular abscess(07/16/25-07/26/25)
PSH:R VPS, I&D of Left submandibular abscess(07/2025)
SH: lives at home; former talent sourcing specialist, former smoker
All:NKDA
ROS: Positive for left-sided weakness, seizures
General: Well developed. In no acute distress.
Cardio: Regular rate and rhythm without murmur. Extremities are without cyanosis or edema.
Neuro:
Mental Status: Alert, oriented to self, age and date of . Impaired attention. Follows complex requests consistently. Fluent. Left hemineglect.
Cranial Nerves: Forced eye deviation to the right. Pupils are equally round and reactive to light. Left hemianopsia no ptosis. Left facial weakness. No dysarthria
Motor: Left hemiplegia. Right arm and leg�antigravity
Sensory: Limited exam due to inattention
Coordination: No tremors myoclonic movements
Gait: deferred
Assessment and Plan:
I. Focal seizure with postictal paralysis vs R MCA infarct.
II. L parafalcine meningioma. History of refractory focal epilepsy.
III. Alcohol use disorder in remission
IV. Mild encephalopathy (toxic, post ictal) Wernicke-Korsakoff syndrome
V. NPH s/p R VPS.
- Seizure precautions
- Continue Lacosamide 300 mg twice daily, Clobazam 15 mg 3 times daily, Keppra 500 mg twice daily
- Please check VPA, Keppra levels
- Continue IV thiamine
- Please check magnesium, CK, TFTs, UA
- Please follow-up head CTA/CTP results
- Lorazepam 2 mg IV as needed for GTC's lasting over 2 minutes or associated hypoxia.
- Brain MRI without susan
- Routine EEG
- Please obtain medical records from [facility]
- We will continue to follow.
I personally reviewed all radiology and labs along with past medical records pertinent to current medical problems. Total time spent in patient care is 60 minutes.
Thank you for allowing us to participate in the care of this patient. Please do not hesitate to contact us with any questions or concerns.
Subjective/Objective
Subjective Data
Date of Service: September 15, 2025
Objective Data
Vital Signs
Temp Pulse Resp BP Pulse Ox
36.9 C 113 24 120/66 97
09/15/25 14:09 09/15/25 14:09 09/15/25 14:09 09/15/25 14:09 09/15/25 14:22
Lab Results
09/15/25 14:17
09/15/25 14:17
PT 15.0 Sec (11.4-14.6) H 09/15/25 14:17
INR 1.15 09/15/25 14:17
APTT 19.5 Sec (23.4-35.0) L 09/15/25 14:17
Sodium 135 mmol/L (135-145) 09/15/25 14:17
Potassium mmol/L (3.5-5.1) 09/15/25 14:17
BUN 24 mg/dl (9-20) H 09/15/25 14:17
Glucose 118 mg/dl (70-99) H 09/15/25 14:17
Calcium 9.6 mg/dl (8.4-10.2) 09/15/25 14:17
Patient Allergies
No Known Allergies Allergy (Verified 07/16/25 09:44)
Medications
-
Home Medications
�Medication �Instructions �Recorded
clobazam 10 mg tablet 15 mg PO TID Seizures 10/04/23
lacosamide 150 mg tablet 300 mg PO BID Seizures 10/04/23
thiamine HCl (vitamin B1) 100 mg 100 mg PO DAILY Supplement 10/04/23
tablet
valproic acid 250 mg capsule 500 mg (2 x 250 mg) PO BID #60 caps 10/04/23
vitamin B complex 1 tab PO DAILY Supplement 10/04/23
folic acid 1 mg tablet 1 mg PO DAILY Supplement 06/22/24
levetiracetam 250 mg tablet 250 mg PO BID Seizures 07/16/25
(Keppra)
Vital Signs and Labs
-
Vital Signs and Labs:
Vital Signs
Temp Pulse Resp BP Pulse Ox
36.9 C 113 24 120/66 97
09/15/25 14:09 09/15/25 14:09 09/15/25 14:09 09/15/25 14:09 09/15/25 14:22
Lab Results
09/15/25 14:17
09/15/25 14:17
PT 15.0 Sec (11.4-14.6) H 09/15/25 14:17
INR 1.15 09/15/25 14:17
APTT 19.5 Sec (23.4-35.0) L 09/15/25 14:17
Sodium 135 mmol/L (135-145) 09/15/25 14:17
Potassium mmol/L (3.5-5.1) 09/15/25 14:17
BUN 24 mg/dl (9-20) H 09/15/25 14:17
Glucose 118 mg/dl (70-99) H 09/15/25 14:17
Calcium 9.6 mg/dl (8.4-10.2) 09/15/25 14:17
Home Medications
-
Home Medications
clobazam 10 mg tablet 15 mg PO TID Seizures 10/04/23
lacosamide 150 mg tablet 300 mg PO BID Seizures 10/04/23
thiamine HCl (vitamin B1) 100 mg tablet 100 mg PO DAILY Supplement 10/04/23
valproic acid 250 mg capsule 500 mg (2 x 250 mg) PO BID #60 caps 10/04/23
vitamin B complex 1 tab PO DAILY Supplement 10/04/23
folic acid 1 mg tablet 1 mg PO DAILY Supplement 06/22/24
levetiracetam 250 mg tablet (Keppra) 250 mg PO BID Seizures 07/16/25
[2025-09-15] MEDS: TYLENOL 1000 MG PO (16:49)
[2025-09-15 17:23] LABS: Magnesium 2.4 mg/dl (1.6-2.3)
--- NOTE | 2025-09-15 18:14 | HPS.HSE ---
Family Physician
-
Family Physician: NOT KNOW UNKNOWN - PT DOES
Chief Complaint
-
Seizures
History of Present Illness
Patient is a 59-year-old gentleman with past medical history significant for alcohol use disorder, Warnicke's Korsakoff syndrome, epilepsy, normal pressure hydrocephalus status post INFORMATION SYSTEMS SECURITY OFFICER shunt, parafalcine meningioma, subdural hematoma, hypertension,
anxiety depression who presents to the emergency department due to recurrent seizures. Per EMS the patient had seizure activity for approximately 20 minutes before paramedics arrived and he received 10 mg of Versed. The patient notes that he ran
out of his medication Onfi due to the medication being unavailable at his pharmacy. He also reports new onset of left-sided weakness, which he says he often has after seizure activity. His last seizure was 3 months ago. In the emergency
department he received IV fluid bolus and Tylenol. He has not had further seizure activity but continues to have left-sided weakness UE and LE. No other focal deficits. He was initially post-ictal and currently has improved mentation during this
history and physical. He tolerated oral challenge in ED.
Medical History
Past Medical History
Past Medical History: Reports Other
Additional Past Medical History:
Alcohol Use Disorder
Wernicke-Korsakoff Syndrome
Seizure Disorder
Subdural Hematoma
NPH
Hypertension
GERD / PUD
Thoracic Aortic Aneurysm
Past Surgical History: Reports Other
Additional Past Surgical History:
INFORMATION SYSTEMS SECURITY OFFICER Shunt
Social History
Alcohol: Former (Patient states that he has not had any alcohol since March 2023.)
Drug: None
Living: With Roomate
Family History
Family History: Not pertinent
Allergies / Home Medications
Allergies reflects when Allergies were last updated in [facility].
Home Medications with original date entered in [facility]
Allergy/Medication List:
Allergies
Allergy/AdvReac Type Severity Reaction Status Date / Time
No Known Allergies Allergy Verified 07/16/25 09:44
Home Medications
clobazam 10 mg tablet 15 mg PO TID Seizures 10/04/23
lacosamide 150 mg tablet 300 mg PO BID Seizures 10/04/23
thiamine HCl (vitamin B1) 100 mg tablet 100 mg PO DAILY Supplement 10/04/23
valproic acid 250 mg capsule 500 mg (2 x 250 mg) PO BID #60 caps 10/04/23
vitamin B complex 1 tab PO DAILY Supplement 10/04/23
folic acid 1 mg tablet 1 mg PO DAILY Supplement 06/22/24
levetiracetam 250 mg tablet (Keppra) 250 mg PO BID Seizures 07/16/25
Review of Systems
-
A 12 point ROS was completed and negative except as noted: Yes
Physical Exam
Vital Signs
Vital Signs
Temp Pulse Resp BP Pulse Ox
98.5 F 113 24 120/66 97
09/15/25 14:09 09/15/25 14:09 09/15/25 14:09 09/15/25 14:09 09/15/25 14:22
Physical Exam
General: Comfortable, Conversant and Appears Chronically Ill
HEENT: NormoCephalic, Anicteric and Moist mucous membranes
Respiratory: Clear
Cardiac: S1/S2 and Regular Rhythm
GI: Soft, Non Tender and Non Distended
Musculoskeletal: No Clubbing, No Cyanosis and No Edema
Skin: Warm and Dry
Neuro: Other (LUE, LLE 0-1/5 motor strength, able to plantar flex left foot only)
Psych: Calm
Laboratory Results
-
09/15/25 14:17
09/15/25 14:17
Laboratory Results
PT 15.0 Sec (11.4-14.6) H 09/15/25 14:17
INR 1.15 09/15/25 14:17
APTT 19.5 Sec (23.4-35.0) L 09/15/25 14:17
Total Bilirubin Cancelled 09/15/25 14:17
AST Cancelled 09/15/25 14:17
ALT Cancelled 09/15/25 14:17
Alkaline Phosphatase Cancelled 09/15/25 14:17
Troponin I 0.068 ng/ml H* 09/15/25 14:17
Data Reviewed
-
CT Scan: Report Reviewed by me (see below)
Impression/Plan
-
IMPRESSION:
#Focal seizure with concern for postictal paralysis left UE and LE versus acute CVA, underlying seizure disorder, seizure possibly due to patient not taking Onfi.
CTA head and neck: Neck CTA without evidence of hemodynamically significant stenosis, occlusion or dissection of the internal carotid arteries bilaterally. No findings to suggest vertebral artery dissection bilaterally. Moderate hypoplasia of the
cervical segment of the left vertebral artery again seen.
Head CTA without evidence of proximal intracranial arterial stenosis involving the anterior cerebral arteries, posterior cerebral arteries are M1/M2 segments of the middle cerebral arteries bilaterally. Decreased blood flow within some distal M3
branches of the right middle cerebral artery which at least in part could represent significant stenosis. Marked hypoplasia of the proximal right posterior cerebral artery again seen.
-Admit to telemetry monitoring
-Continue seizure medications
-Seizure precautions
-Brain MRI without susan
-Neurology consultation appreciated
-EEG
-Lorazepam 2 mg IV as needed for GTC's lasting over 2 minutes or associated hypoxia.
-Continue Lacosamide 300 mg twice daily, Clobazam 15 mg 3 times daily, Keppra 500 mg twice daily oh
-C single heck magnesium, CK, TFTs, UA
-VPA, Keppra levels
- follow-up head CTA/CTP results -neck CTA without evidence for hemodynamically significant stenosis occlusion or dissection, head CTA without evidence for proximal intracranial arterial stenosis, decreased blood flow within some distal M3 branches
of the middle right cerebral artery as above
-Chol lowering diet ordered if passes bedside swallow eval
-aspirin daily for now pending MRI
# Encephalopathy, likely postictal, improving
# Leukocytosis likely reactive no evidence for acute infection
-continue to monitor
- Check urine analysis
# Elevated troponin without chest pain or EKG changes to suggest myocardial ischemia
-Trend troponin, continue telemetry monitoring
- Monitor for signs and symptoms of ACS
#Alcohol Use Disorder
-thiamine, folate
#Wernicke-Korsakoff Syndrome
- Continue IV thiamine
#Subdural Hematoma, history of, stable
#NPH status post right VPS, no evidence for infection
#Hypertension, BP controlled
#GERD / PUD
#Thoracic Aortic Aneurysm, stable
[facility] obtain medical records from [facility]
DVT proph- PCDs
Full Code
--- NOTE | 2025-09-15 20:36 | PTCARENOTE ---
Recieved pt. from ED. Pt. oriented to unit and call campbell within reach. Pt. care ongoing.
[2025-09-15] MEDS: ASPIRIN 325 MG PO (21:13)
[2025-09-15] MEDS: VIMPAT 300 MG PO (21:51)
[2025-09-15] MEDS: KEPPRA 500 MG PO (21:51)
[2025-09-15] MEDS: DEPAKENE 500 MG PO (21:51)
[2025-09-15 22:20] LABS: Depakane 36.1 ug/ml (50.0-120.0)
[2025-09-15 22:32] LABS: Troponin I 0.387 ng/ml
[2025-09-15] MEDS: ONFI 15 MG PO (22:39)
[2025-09-16] VITALS (7 sets, daily range): BP systolic 100–129; BP diastolic 61–84; PULSE 70–84; O2SAT 96
[2025-09-16 04:58] LABS: Urine Character Clear (Clear)
[2025-09-16 05:49] LABS: Urine Red Blood Cell 0-2 /HPF (0-2); Urine White Cell 0-2 /HPF (0-5)
[2025-09-16 06:54] LABS: HDL Cholesterol 36 mg/dl; LDL Cholesterol, Calculated 154 mg/dl; Magnesium 2.1 mg/dl (1.6-2.3); Very Low Density Lipoprotein 12 mg/dl (0-30)
[2025-09-16 06:57] LABS: Troponin I 0.168 ng/ml
[2025-09-16] MEDS: VIMPAT 300 MG PO ×2 (07:37→19:18)
[2025-09-16] MEDS: DEPAKENE 500 MG PO ×2 (07:37→19:17)
[2025-09-16] MEDS: B COMPLEX w/VITAMIN C 1 CAPLET PO (07:37)
[2025-09-16] MEDS: KEPPRA 500 MG PO ×2 (07:37→19:17)
[2025-09-16] MEDS: FOLVITE 1 MG PO (07:37)
[2025-09-16] MEDS: VITAMIN B1 100 MG PO (07:38)
[2025-09-16] MEDS: ONFI 15 MG PO ×3 (07:38→21:17)
[2025-09-16] MEDS: LOW STRENGTH ASPIRIN 81 MG PO (07:38)
--- NOTE | 2025-09-16 09:58 | CM ---
Patient seen bedside, initial assessment completed. Patient is a 59-year-old gentleman with past medical history significant for alcohol use disorder, Warnicke's Korsakoff syndrome, epilepsy, normal pressure hydrocephalus status post CERTIFIED WELDING INSPECTOR shunt,
parafalcine meningioma, subdural hematoma, hypertension, anxiety depression who presents to the emergency department due to recurrent seizures.
Patient resides w/ delivery clerk in a 3STH, 2 steps to enter from the outside. Patient ambulates independently w/ a cane. Patient has a shower chair in the bathroom for support. Patient confirmed that the caregiver assists w/ meals, medication
administration and driving him to appointments. Patient denies SNF hx, home health services in the past for speech and PT. Patient stated caregiver will transport him home at d/c.
Address, point of contacts and insurance verified
PCP: Berna Myers
Pharmacy: [facility]
PT/OT ordered, will watch for any skilled needs
Plan: Home, will watch for any needs pending therapy evals
--- NOTE | 2025-09-16 10:49 | PTOTSP ---
Speech Therapy Evaluation:
Pt with acute on chronic risk factors of dysphagia including hx of epilepsy, SDH, and GERD with current admission for seizure and L sided weakness with concern for possible CVA. At bedside, oral phase mildly prolonged due to status of dentition,
however no overt s/sx of aspiration or signs concerning for pharyngeal dysphagia at this time. No chest imaging completed thus far, however pt passed 3oz swallow screen.
Recommend:
1. Regular solids and thin liquids
2. Meds as tolerated
3. General aspiration precautions
4. AGENCY RECRUITER to follow to monitor tolerance of diet level and determine if pt would benefit from additional language and/or cognitive assessment pending MRI
[2025-09-16 14:38] LABS: Blood Urea Nitrogen 25 mg/dl (9-20); Calcium 8.8 mg/dl (8.4-10.2); Carbon Dioxide 25 mmol/L (22-30); Chloride 105 mmol/L (98-107); Estimated Creatinine Clearance 95 ml/min; Glucose 99 mg/dl (70-99); Potassium 4.4 mmol/L (3.5-5.1); Sodium 137 mmol/L (135-145); eGFR > 60.00
--- NOTE | 2025-09-16 14:47 | W.PN.HOSP.TC ---
Today's Communication/Plan
-
Continue current antiepileptic regimen
Repeat CT scan of the head with contrast in a.m.
Assessment / Plan
Assessment / Plan
IMPRESSION:
#Focal seizure with concern for postictal paralysis left UE and LE versus acute CVA, underlying seizure disorder, seizure possibly due to patient not taking Onfi.
CTA head and neck: Neck CTA without evidence of hemodynamically significant stenosis, occlusion or dissection of the internal carotid arteries bilaterally. No findings to suggest vertebral artery dissection bilaterally. Moderate hypoplasia of the
cervical segment of the left vertebral artery again seen.
Head CTA without evidence of proximal intracranial arterial stenosis involving the anterior cerebral arteries, posterior cerebral arteries are M1/M2 segments of the middle cerebral arteries bilaterally. Decreased blood flow within some distal M3
branches of the right middle cerebral artery which at least in part could represent significant stenosis. Marked hypoplasia of the proximal right posterior cerebral artery again seen.
-Admit to telemetry monitoring
-Continue seizure medications
-Seizure precautions
- Unable to perform brain MRI given [employer] INTER[employer] shunt needed to be prepped. Will ask for CT head with contrast to be done on 09/17
-EEG
-Lorazepam 2 mg IV as needed for GTC's lasting over 2 minutes or associated hypoxia.
-Continue Lacosamide 300 mg twice daily, Clobazam 15 mg 3 times daily, Keppra 500 mg twice daily oh
-C single heck magnesium, CK, TFTs, UA
-VPA, Keppra levels
- follow-up head CTA/CTP results -neck CTA without evidence for hemodynamically significant stenosis occlusion or dissection, head CTA without evidence for proximal intracranial arterial stenosis, decreased blood flow within some distal M3 branches
of the middle right cerebral artery as above
-Chol lowering diet ordered if passes bedside swallow eval
-aspirin daily follow-up repeat imaging
# Encephalopathy, likely postictal, improving
# Leukocytosis likely reactive no evidence for acute infection
-continue to monitor
- Check urine analysis
# Elevated troponin without chest pain or EKG changes to suggest myocardial ischemia
-Trend troponin, continue telemetry monitoring
- Monitor for signs and symptoms of ACS
#Alcohol Use Disorder
-thiamine, folate
#Wernicke-Korsakoff Syndrome
- Continue IV thiamine
#Subdural Hematoma, history of, stable
#NPH status post right VPS, no evidence for infection
#Hypertension, BP controlled
#GERD / PUD
#Thoracic Aortic Aneurysm, stable
[facility] obtain medical records from [facility]
DVT proph- PCDs
Full Code
Anticipated Discharge: 24 - 48 hours
Subjective/Interval History
-
Date of Service: September 16, 2025
Objective Data
-
Labs:
Laboratory Results
09/16/25
13:55
Sodium 137
Potassium 4.4
Chloride 105
Carbon Dioxide 25
BUN 25 H
Creatinine 0.9
Glucose 99
Calcium 8.8
Vital Signs:
Vital Signs
Temp Pulse Resp BP Pulse Ox
97.5 F 70 18 111/71 96
09/16/25 11:07 09/16/25 11:07 09/16/25 11:07 09/16/25 11:07 09/16/25 11:07
I&O
09/15/25 09/16/25 09/17/25
06:59 06:59 06:59
Intake Total 750 / 750 480 / 480
Output Total 300 / 300 200 / 200
Balance 450 / 450 280 / 280
Physical Exam
-
General: Well Developed and No Apparent Distress
HEENT: Normocephalic, Atraumatic and Moist Mucous Membranes
Respiratory: Clear to Auscultation
Cardiac: Regular Rhythm and S1/S2; Negative Murmur, Rub or Gallop
GI: Soft, Nontender, Nondistended and Normal Bowel Sounds; Negative Organomegaly
Rectal: Deferred by Provider
Musculoskeletal: No Clubbing, No Cyanosis and No Edema
Skin: Negative Rash
Neuro: Awake, Alert, Oriented, AO x 3 and Other (Mild left upper and lower extremity weakness 4 out of 5)
--- NOTE | 2025-09-16 16:25 | EEG.RPT ---
Electroencephalogram Report
Recording
Date of EE09/16/25
Type of EEG: Routine
Length of EEG recordin minutes
Done with Video Recording: Yes
Patient Status: Inpatient
Recording Conditions: Awake and Drowsy
Hyperventilation Performed: No
Photic Stimulation Performed: Yes
Report
LESS THAN 1 HOUR EEG REPORT
LESS THAN 1 HOUR EEG INTERPRETATION:
Unremarkable EEG for age
CLINICAL CORRELATION:
A normal EEG does not rule out a diagnosis of epilepsy. If clinical suspicion for seizure persists, a prolonged recording may be warranted.
Clinical correlation is advised.
METHODS:
A 21 channel digitized electroencephalogram (EEG) was performed using the 10/20 international system of electrode placement and one-lead of ECG recorded. Video was recorded. Persyst quantitative EEG analysis was performed.
ELECTROENCEPHALOGRAPHER IMPRESSION(S):
Quality of study: Good
Background: There was an unremarkable anterior-posterior voltage gradient of alpha frequency.
With eye opening the background activity changed to a low voltage mixture of frequencies.
There were no significant asymmetries of background activity noted.
Sleep: Drowsiness present
Photic Stimulation: No driving
ECG: Normal sinus rhythm
--- NOTE | 2025-09-16 17:27 | W.PN.NEURO.1 ---
Today's Communication / Plan
-
The patient is a 59 years old male who presented to the hospital on 09/15/2025 for recurrent seizures. The patient is on multiple antiepileptic medications and also is on Onfi. The patient says that he ran out of Onfi due to the unavailability of
the medication at his pharmacy. He says that sometimes after his seizures he develops left-sided weakness however he returns to his baseline after a few weeks. He still complains of a mild left-sided weakness today. The patient says that during
the seizures he does not lose consciousness and the seizures start on the left side involving the arm and the leg.
. Patient has a history of refractory focal epilepsy. Continue Lacosamide 300 mg twice daily, Clobazam 15 mg 3 times daily, Keppra 500 mg twice daily and Valproic acid 500 mg BID.
. EEG is unremarkable for age.
. Recommend MRI of the brain with and without IV contrast.
. CT of the head does not show an acute intracranial abnormality. The patient is status post placement of a right ventriculoperitoneal shunt in the interval since prior CT with stable prominence of the ventricles.
. The CTA of head and neck shows decreased blood flow in some distal M3 branches of the right middle cerebral artery.
Subjective/Objective
Subjective Data
Date of Service: September 16, 2025
The patient is a 59 years old male who presented to the hospital on 09/15/2025 for recurrent seizures. The patient is on multiple antiepileptic medications and also is on Onfi. The patient says that he ran out of Onfi due to the unavailability of
the medication at his pharmacy. He says that sometimes after his seizures he develops left-sided weakness however he returns to his baseline after a few weeks. He still complains of a mild left-sided weakness today. The patient says that during
the seizures he does not lose consciousness and the seizures start on the left side involving the arm and the leg.
. Patient has a history of refractory focal epilepsy. Continue Lacosamide 300 mg twice daily, Clobazam 15 mg 3 times daily, Keppra 500 mg twice daily and Valproic acid 500 mg BID.
. EEG is unremarkable for age.
. Recommend MRI of the brain with and without IV contrast.
. CT of the head does not show an acute intracranial abnormality. The patient is status post placement of a right ventriculoperitoneal shunt in the interval since prior CT with stable prominence of the ventricles.
. The CTA of head and neck shows decreased blood flow in some distal M3 branches of the right middle cerebral artery.
Neurologic examination:
The patient is alert and oriented x 3,
Speech is clear,
Cranial nerves II to XII grossly intact,
The motor strength is grossly 4/5 in the left upper and lower extremities and the strength is grossly 5/5 in the right upper and lower extremities.
The cerebellar examination does not show limb ataxia.
Discussed with Dr. Julio Cesar Lopez.
Objective Data
Vital Signs
Temp Pulse Resp BP Pulse Ox
37.1 C 68 18 115/69 97
09/16/25 15:25 09/16/25 15:25 09/16/25 15:25 09/16/25 15:25 09/16/25 15:25
Lab Results
09/15/25 14:17
09/16/25 13:55
PT 15.0 Sec (11.4-14.6) H 09/15/25 14:17
INR 1.15 09/15/25 14:17
APTT 19.5 Sec (23.4-35.0) L 09/15/25 14:17
Sodium 137 mmol/L (135-145) 09/16/25 13:55
Potassium 4.4 mmol/L (3.5-5.1) 09/16/25 13:55
BUN 25 mg/dl (9-20) H 09/16/25 13:55
Glucose 99 mg/dl (70-99) 09/16/25 13:55
Calcium 8.8 mg/dl (8.4-10.2) 09/16/25 13:55
LDL Cholesterol, Calc 154 mg/dl 09/16/25 05:53
Ur Buprenorphine Negative (Negative) 09/16/25 04:46
Patient Allergies
No Known Allergies Allergy (Verified 07/16/25 09:44)
Vital Signs and Labs
-
Vital Signs and Labs:
Vital Signs
Temp Pulse Resp BP Pulse Ox
37.1 C 68 18 115/69 97
09/16/25 15:25 09/16/25 15:25 09/16/25 15:25 09/16/25 15:25 09/16/25 15:25
Lab Results
09/15/25 14:17
09/16/25 13:55
PT 15.0 Sec (11.4-14.6) H 09/15/25 14:17
INR 1.15 09/15/25 14:17
APTT 19.5 Sec (23.4-35.0) L 09/15/25 14:17
Sodium 137 mmol/L (135-145) 09/16/25 13:55
Potassium 4.4 mmol/L (3.5-5.1) 09/16/25 13:55
BUN 25 mg/dl (9-20) H 09/16/25 13:55
Glucose 99 mg/dl (70-99) 09/16/25 13:55
Calcium 8.8 mg/dl (8.4-10.2) 09/16/25 13:55
LDL Cholesterol, Calc 154 mg/dl 09/16/25 05:53
Ur Buprenorphine Negative (Negative) 09/16/25 04:46
Medications
-
Active Medications
Generic Name Dose Route Start Last Admin
Trade Name Freq PRN Reason Stop Dose Admin
Acetaminophen 650 mg 09/15/25 20:20
Acetaminophen 650 Mg Rectal Suppository RECTAL 10/13/25 20:19
Q4HPRN PRN
RAMIREZ, mild pain, or temp >100.4F
Acetaminophen 650 mg 09/15/25 20:20
Acetaminophen 325 Mg Tablet PO 10/13/25 20:19
Q4HPRN PRN
RAMIREZ, mild pain, or temp >100.4F
Aspirin 81 mg 09/16/25 08:00 09/16/25 07:38
Aspirin 81 Mg Chewable Tablet PO 10/14/25 07:59 81 mg
DAILY JOSLYN Administration
Clobazam 15 mg 09/15/25 22:00 09/16/25 17:08
Clobazam 10 Mg (Non-Form) Tablet PO 10/13/25 21:59 15 mg
TID JOSLYN Administration
Folic Acid 1 mg 09/16/25 08:00 09/16/25 07:37
Folic Acid 1 Mg Tablet PO 10/14/25 07:59 1 mg
DAILY JOSLYN Administration
Lacosamide 300 mg 09/15/25 20:30 09/16/25 07:37
Lacosamide (Vimpat) 100 Mg Tablet PO 10/13/25 20:29 300 mg
BID JOSLYN Administration
Levetiracetam 500 mg 09/15/25 21:00 09/16/25 07:37
Levetiracetam 500 Mg Regular Release Tablet PO 10/13/25 20:59 500 mg
BID JOSLYN Administration
Thiamine HCl 100 mg 09/16/25 08:00 09/16/25 07:38
Thiamine 100 Mg Tablet PO 10/14/25 07:59 100 mg
DAILY JOSLYN Administration
Valproic Acid 500 mg 09/15/25 20:20 09/16/25 07:37
Valproic Acid 250 Mg Capsule PO 10/13/25 20:19 500 mg
BID JOSLYN Administration
Vitamin B Complex/Vitamin C 1 caplet 09/16/25 08:00 09/16/25 07:37
Vitamin B Complex With Vitamin C Caplet PO 10/14/25 07:59 1 caplet
DAILY JOSLYN Administration
Home Medications
�Medication �Instructions �Recorded
clobazam 10 mg tablet 15 mg PO TID Seizures 10/04/23
lacosamide 150 mg tablet 300 mg PO BID Seizures 10/04/23
thiamine HCl (vitamin B1) 100 mg 100 mg PO DAILY Supplement 10/04/23
tablet
valproic acid 250 mg capsule 500 mg (2 x 250 mg) PO BID #60 caps 10/04/23
vitamin B complex 1 tab PO DAILY Supplement 10/04/23
folic acid 1 mg tablet 1 mg PO DAILY Supplement 06/22/24
levetiracetam 250 mg tablet 250 mg PO BID Seizures 07/16/25
(Keppra)
[2025-09-17 03:11] VITALS: BP 113/67
--- NOTE | 2025-09-17 07:44 | PN.CDI ---
CDI
- -
CDI:
Physician Documentation Request
Admit Date: 09/15/25 19:05
Dear Doctor Jessica,
Please review the following and provide your response in the progress notes.
Clinical Indicators:
PN, 09/16
# Elevated troponin without chest pain or EKG changes to suggest myocardial ischemia
#...-Trend troponin, continue telemetry monitoring
#...- Monitor for signs and symptoms of ACS
Laboratory Tests
09/15/25 09/15/25 09/16/25
14:17 21:56 05:53
Troponin I 0.068 H* 0.387 H* D 0.168 H* D
Based on the above and your clinical assessment,please clarify the appropriate diagnosis, if significant, that supports the above abnormalities and additional evaluation, monitoring and/or treatment rendered:
Non ischemic myocardial injury
Abnormal lab value, clinically insignificant
Other(please specify)
Use of terms such as suspected, likely, concern for, or probable (associated with a specific diagnosis that is being evaluated, monitored, or treated as if it exists) are acceptable and can be coded in the inpatient setting, when documented at the
time of discharge.
Thank you,
Samira Dennis RN BSN CCDS
CDI Specialist
Please contact via tiger text
Please use your independent medical judgment in providing your response.
[2025-09-17 08:02] VITALS: BP 126/79
[2025-09-17] MEDS: FOLVITE 1 MG PO (08:49)
[2025-09-17] MEDS: B COMPLEX w/VITAMIN C 1 CAPLET PO (08:49)
[2025-09-17] MEDS: DEPAKENE 500 MG PO (08:49)
[2025-09-17] MEDS: VITAMIN B1 100 MG PO (08:50)
[2025-09-17] MEDS: KEPPRA 500 MG PO (08:50)
[2025-09-17] MEDS: LOW STRENGTH ASPIRIN 81 MG PO (08:50)
[2025-09-17] MEDS: VIMPAT 300 MG PO (08:53)
[2025-09-17] MEDS: ONFI 15 MG PO (08:53)
[2025-09-17] MEDS: PLAVIX 75 MG PO (08:57)
[2025-09-17 11:02] VITALS: BP 122/76
[2025-09-17 11:30] VITALS: BP 122/76; PULSE 65
--- NOTE | 2025-09-17 12:13 | CM ---
Chart reviewed. Discussed w/ hospitalist, patient will d/c today
Therapy rec SNF, however, patient is declining at this time and would like to go home
Patient agreeable to home PT and referral to [facility]. Patient requesting his caregiver to be called when scheduling initial visit
Updated caregiver who will transport patient home
IMM verbally reviewed, copy provided, copy on chart
[facility]

Plan: Home w/ [facility]
--- NOTE | 2025-09-17 12:49 | W.DS.TRANS ---
DC Summary - [employer]
-
Discharge Instructions:
Discharge Diagnosis/Procedures Seizure.
Diet Regular
Others Tests MRi of the brain
Instructions:
Stand-Alone Forms:
Changes to Home Medications: Yes
Discharge Medications:
DC Medications w/original date entered in [facility]
clobazam 10 mg tablet 15 mg PO TID Seizures 10/04/23
lacosamide 150 mg tablet 300 mg PO BID Seizures 10/04/23
thiamine HCl (vitamin B1) 100 mg tablet 100 mg PO DAILY Supplement 10/04/23
valproic acid 250 mg capsule 500 mg (2 x 250 mg) PO BID #60 caps 10/04/23
vitamin B complex 1 tab PO DAILY Supplement 10/04/23
folic acid 1 mg tablet 1 mg PO DAILY Supplement 06/22/24
levetiracetam 250 mg tablet (Keppra) 250 mg PO BID Seizures 07/16/25
aspirin 81 mg chewable tablet 81 mg PO DAILY #30 tabs 09/17/25
clopidogrel 75 mg tablet 75 mg PO DAILY #20 tabs 09/17/25
pantoprazole 20 mg tablet,delayed release (Protonix) 20 mg PO DAILY #30 tabs 09/17/25
Home Medication Changes
DAPT added for 21 days and pending outpatient MRI of the brain
Pending Results: No
--- NOTE | 2025-09-17 13:38 | VNURNOTE ---
Home Health Liaison met with patient at bedside to discuss [facility] nurse/therapy, visits, schedule and homebound status. Patient is agreeable and understands that visits at home will be 2-3 x per week to assess and teach medical management.
Patient is aware that [facility] will contact them for start of care within a few days after discharge from . Provided contact number for [facility].
[facility] referral completed in [facility].
[2025-09-17 15:00] VITALS: BP 122/84
== END 2025-09-17 18:06 | disposition home health service (06) | DRG 101 ==
LOC: 4 WEST ACU 19:05
PROVIDERS: ADMITTING PHYSICIAN Internal Medicine; ATTENDING PHYSICIAN Internal Medicine; CONSULT PHYSICIAN Psychiatry & Neurology Neurology; EMERGENCY PHYSICIAN Student in an Organized Health Care Education/Training Program
DX: G40.109 Localization-related (focal) (partial) symptomatic epilepsy and epileptic syndromes with simple partial seizures, not intractable, without status epilepticus (principal); G91.2 (Idiopathic) normal pressure hydrocephalus; R79.89 Other specified abnormal findings of blood chemistry; F10.96 Alcohol use, unspecified with alcohol-induced persisting amnestic disorder; Z98.2 Presence of cerebrospinal fluid drainage device; I10 Essential (primary) hypertension; K21.9 Gastro-esophageal reflux disease without esophagitis; Z87.11 Personal history of peptic ulcer disease; I71.20 Thoracic aortic aneurysm, without rupture, unspecified; I45.10 Unspecified right bundle-branch block; Z79.899 Other long term (current) drug therapy; Z87.891 Personal history of nicotine dependence; F32.A Depression, unspecified; F41.9 Anxiety disorder, unspecified
CPT/HCPCS: 0042T; 70450; 70470; 70496; 70498; 80048; 80061; 80164; 80177; 80306; 80307; 81003; 81015; 82077; 82550; 82962; 83735; 84439; 84443; 84484; 85025; 85610; 85730; 92610; 93005; 95816; 96360; 96361; 97116; 97163; 97167; 97535; 99291; Q9967